=== PATIENT | male | born 1975 | race Caucasian/White ===

== ENCOUNTER 2017-07-17 19:17 | Inpatient (IN) | payer OTHER ==
[~2017-07-17] VITALS: Ht 177.8 cm; Wt 85.0 kg
[~2017-07-17 19:17] MED LIST: DEXAMETHASONE SOD PHOS 4 MG/ML VIAL IV ONE; GLYCOPYRROLATE 1 MG/5 ML SYRINGE IV PUSH ONE; LIDOCAINE HCL 1% PF 5 ML SYRINGE OTHER ONE; ONDANSETRON HCL 4 MG/2 ML VIAL IV ONE; PROPOFOL 200 MG/20 ML AMP IV ONE; ROCURONIUM INJ 50 MG/5 ML SYRINGE IV PUSH ONE; SUCCINYLCHOLINE CHLORIDE 200 MG/10 ML VIAL IV ONE; SULF1TAB47 PO; Z.0.NO CURRENT MEDS
[2017-07-17] MEDS ORDERED: MORPHINE SULFATE 4 MG/ML INJ ONE (19:22)
[2017-07-17] MEDS ORDERED: GENTAMICIN 80 MG PREMIX 100 ML ONE (19:38)
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
[2017-07-17 19:43] LABS: AUTOMATED NEUTROPHIL # 5.3 TH/MM3 (1.8-7.7); BASOPHIL # 0.1 TH/MM3 (0-0.2); BASOPHIL % 0.7 % (0.0-2.0); EOSINOPHIL # 0.1 TH/MM3 (0-0.4); EOSINOPHIL % 1.3 % (0.0-4.0); HEMATOCRIT 40.4 % (39.0-51.0); HEMOGLOBIN 14.2 GM/DL (13.0-17.0); LYMPH % 37.2 % (9.0-44.0); LYMPHOCYTE # 3.9 TH/MM3 (1.0-4.8); MEAN CELL VOLUME 89.1 FL (80.0-100.0); MEAN CORPUSCULAR HEMOGLOBIN 31.2 PG (27.0-34.0); MONO % 9.7 % (0.0-8.0); NEUT % 51.1 % (16.0-70.0); PLATELET COUNT 195 TH/MM3 (150-450); RED BLOOD COUNT 4.54 MIL/MM3 (4.50-5.90); RED CELL DISTRIBUTION WIDTH 14.1 % (11.6-17.2); WHITE BLOOD COUNT 10.4 TH/MM3 (4.0-11.0)
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
[2017-07-17] MEDS ORDERED: HYDROmorphone HCL PF 2 MG/ML VIAL ONE (19:57)
[2017-07-17 19:58] LABS: PROTHROMBIN TIME - PATIENT 10.4 SEC (9.8-11.6)
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
[2017-07-17] MEDS ORDERED: IOHEXOL 350 MG/ML 10 ML VIAL (for RAD DIAG) IVCONTRAST ONE (20:16)
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
[2017-07-17] MEDS ORDERED: GENTAMICIN SULFATE 80 MG/2 ML VIAL ONE (21:01)
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
[2017-07-17] MEDS: LACTATED RINGER'S 1000 ML INJ 1,000 ML IV SCH (22:00)
[2017-07-17] MEDS ORDERED: MORPHINE SULFATE 4 MG/ML INJ IV PUSH PRN (22:00)
[2017-07-17] MEDS ORDERED: Post-op Orders (for Pharmacy) XX ONE (22:00)
[2017-07-17] MEDS ORDERED: diphenhydrAMINE HCL 25 MG CAP PO PRN (22:00)
[2017-07-17] MEDS: KETOROLAC TROMETHAMINE 30 MG/ML (IVP) VIAL IVP SCH (22:00)
[2017-07-17 22:19] VITALS: O2SAT 100
[2017-07-17] MEDS ORDERED: *MEPERIDINE 25 MG INJ VIAL PERIprocedural Use ONLY ONE (22:23)
[2017-07-17] MEDS ORDERED: ACETAMINOPHEN 1000 MG/100 ML 100 ML IV ONE (22:23)
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
[2017-07-17] MEDS ORDERED: DO NOT ADM ANY ANTICOAGULANT DRUGS PRN (22:45)
[2017-07-17] MEDS ORDERED: MORPHINE SULFATE 2 MG/ML INJ ONE (22:51)
[2017-07-17] MEDS ORDERED: *morphine SULFATE 8 MG/ML PERIprocedure ONLY ONE ×2 (22:59→23:29)
[2017-07-17] MEDS: ceFAZolin 2 GM PREMIX 50 ML IV SCH (23:00)
[2017-07-17] MEDS: ACETAMINOPHEN/HYDROcodone 325 MG/10 MG TAB PO PRN (23:39)
[2017-07-18] VITALS (8 sets, daily range): BP systolic 116–126; BP diastolic 70–90; PULSE 60–89; RESP 17–18; TEMP 95.9–97.3; O2SAT 95–100
[2017-07-18] MEDS: VANCOMYCIN INJ 1,000 MG in SODIUM CHLOR 0.9% 250 ML INJ 250 ML IV SCH ×3 (00:30→23:40)
[2017-07-18] MEDS: ONDANSETRON HCL 4 MG/2 ML VIAL IVP PRN ×2 (02:01→06:44)
[2017-07-18] MEDS ORDERED: METOCLOPRAMIDE HCL 10 MG/2 ML VIAL IV PRN (05:15)
[2017-07-18] MEDS: ceFAZolin 2 GM PREMIX 50 ML IV SCH ×3 (06:44→21:44)
[2017-07-18] MEDS: KETOROLAC TROMETHAMINE 30 MG/ML (IVP) VIAL IVP SCH ×3 (06:44→21:44)
--- NOTE | 2017-07-18 07:23 | PD.ORT.PN ---
Subjective Subjective Remarks POD 1 s/p I&D with application of exfix right open distal tib fib fxs s/p right clavicle fx repots severe nausea. Objective Vitals Vital Signs Date Time Temp Pulse Resp B/P (MAP) Pulse Ox O2 Delivery O2 Flow Rate FiO2 07/18/17 05:05 96.8 60 17 116/70 (85) 95 07/18/17 00:15 96.3 89 18 117/90 (99) 97 07/17/17 23:45 50 15 122/78 (93) 99 Room Air 07/17/17 23:15 83 17 125/83 (97) 99 Room Air 07/17/17 23:00 98 15 128/78 (95) 99 Room Air 07/17/17 22:45 98 15 112/71 (85) 99 Room Air 07/17/17 22:30 97.9 100 15 131/76 (94) 99 Nasal Cannula 2 07/17/17 22:20 97.9 100 15 126/70 (88) 99 Nasal Cannula 2 07/17/17 22:19 100 2.00 I/O 07/17/17 07/17/17 07/17/17 07/18/17 07/18/17 07/18/17 07:00 15:00 23:00 07:00 15:00 23:00 Intake Total 1500 ml 480 ml Output Total 100 ml 425 ml Balance 1400 ml 55 ml Intake Oral 480 ml Other 1500 ml Output Urine Total 0 ml 425 ml Estimated Blood Loss 100 ml # Voids 0 # Bowel Movements 0 Result Diagram: 07/17/171919 Other Results Laboratory Tests Test 07/17/17 19:20 Prothromb Time International Ratio 1.0 RATIO Prothrombin Time 10.4 SEC (9.8-11.6) Imaging Last 24 hours Impressions Aorta w/Runoff CTA 07/17/171936 Signed Impressions: Service Date/Time: Monday, July 17, 2017 19:44 - CONCLUSION: 1. Posterior tibial artery appears to be occluded by a bone fragment. There is questionable trace flow in dorsalis pedis artery. Peroneal artery not well visualized. Exam is limited by poor contrast opacification in the distal lower extremities. Results therefore not definitive. Normal flow noted above the fracture on the right. Left side normal. Chaparro Cuba MD Thoracic Spine CT 2/12/18 1920 Signed Impressions: Service Date/Time: Monday, July 17, 2017 19:44 - CONCLUSION: 1. No acute findings identified within the thoracic spine. Chaparro Cuba MD Pelvis X-Ray 07/17/171919 Signed Impressions: Service Date/Time: Monday, July 17, 2017 19:18 - CONCLUSION: 1. No acute findings. Chaparro Cuba MD Lumbar Spine CT 07/17/171919 Signed Impressions: Service Date/Time: Monday, July 17, 2017 19:44 - CONCLUSION: 1. No acute fracture. Mild central canal stenosis at L4-5 with broad-based mild disc protrusion. No spondylolisthesis. Chaparro Cuab MD Head CT 07/17/171919 Signed Impressions: Service Date/Time: Monday, July 17, 2017 19:36 - CONCLUSION: 1. No acute intracranial abnormality. Fluid in the paranasal sinuses. Chaparro Cuba MD Chest CT 07/17/171919 Signed Impressions: Service Date/Time: Monday, July 17, 2017 19:44 - CONCLUSION: 1. Right clavicle fracture. Otherwise negative for intrathoracic traumatic injury. Chaparro Cuba MD Cervical Spine CT 07/17/171919 Signed Impressions: Service Date/Time: Monday, July 17, 2017 19:36 - CONCLUSION: 1. No acute findings. Chaparro Cuba MD Abdomen/Pelvis CT 07/17/171919 Signed Impressions: Service Date/Time: Monday, July 17, 2017 19:44 - CONCLUSION: 1. Negative for acute traumatic injury within the abdomen and pelvis. Chaparro Cuba MD Objective Remarks RLE: dressings around proximal pin sites are blood soaked. remaining dressings are clean and dry. intact. NVI. RUE: moderate pain overmidshaft clavicle. nvi Assessment & Plan Assessment and Plan 1) Right Midshaft clavicle fx - nonop -NWB -will monitor and treat nonop 2) Right distal Tibfib Fxs s/p I&D and exfix application - POD 1 -NWB -elevate -Toradol -pin care BID -npo after MN -will re-eval for surgery tomorrow AM Alan Sanderson/First Makayla MOYA Jul 18, 2017 07:23
[2017-07-18] MEDS ORDERED: SODIUM CHLORIDE 0.9% FLUSH 10 ML FLUSH IV FLUSH PRN (07:45)
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
[2017-07-18 08:21] LABS: HEMATOCRIT 38.7 % (39.0-51.0); HEMOGLOBIN 13.1 GM/DL (13.0-17.0)
[2017-07-18] MEDS: MAGNESIUM HYDROXIDE SUSP 30 ML CUP PO SCH ×2 (08:57→21:44)
[2017-07-18] MEDS: FAMOTIDINE 20 MG TAB PO SCH ×2 (08:57→21:43)
[2017-07-18] MEDS: LACTATED RINGER'S 1000 ML INJ 1,000 ML IV SCH ×2 (08:58→23:40)
[2017-07-18] MEDS: DOCUSATE SODIUM 50 MG/SENNA 8.6 MG TAB PO SCH ×2 (08:58→21:34)
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
[2017-07-18] MEDS: ACETAMINOPHEN 1000 MG/100 ML 100 ML IV SCH ×2 (15:03→22:27)
[2017-07-18] MEDS: ACETAMINOPHEN/HYDROcodone 325 MG/10 MG TAB PO PRN ×2 (17:38→21:44)
[2017-07-18] MEDS ORDERED: ENOXAPARIN SODIUM 40 MG/0.4 ML SYRINGE SQ SCH (21:00)
[2017-07-19] VITALS (9 sets, daily range): BP systolic 115–133; BP diastolic 65–77; PULSE 63–76; RESP 17–19; TEMP 96.2–97.8; O2SAT 97–99
[2017-07-19] MEDS: ACETAMINOPHEN/HYDROcodone 325 MG/10 MG TAB PO PRN ×4 (02:36→22:31)
[2017-07-19] MEDS: ONDANSETRON HCL 4 MG/2 ML VIAL IVP PRN (02:36)
[2017-07-19] MEDS ORDERED: CHLORHEXIDINE GLUCONATE 2 % 1 PACK (2 CLOTHS) TOPICAL PRN (02:45)
[2017-07-19] MEDS ORDERED: SODIUM CHLORID 0.9% 500 ML IV PRN (02:45)
[2017-07-19] MEDS ORDERED: POVIDONE IODINE 5% (ANTISEPSIS KIT) 4 APPLICATIONS EACH NARE PRN (02:45)
[2017-07-19] MEDS ORDERED: LACTATED RINGER'S 1000 ML IV PRN (02:45)
[2017-07-19] MEDS: ceFAZolin 2 GM PREMIX 50 ML IV SCH ×2 (05:47→16:02)
[2017-07-19] MEDS: KETOROLAC TROMETHAMINE 30 MG/ML (IVP) VIAL IVP SCH ×2 (05:47→13:12)
[2017-07-19] MEDS: ACETAMINOPHEN 1000 MG/100 ML 100 ML IV SCH (06:33)
--- NOTE | 2017-07-19 06:39 | PD.ORT.PN ---
Subjective Subjective Remarks POD 2 s/p I&D with application of exfix right open distal tib fib fxs s/p right clavicle fx repots that nausea is improving Objective Vitals Vital Signs Date Time Temp Pulse Resp B/P (MAP) Pulse Ox O2 Delivery O2 Flow Rate FiO2 07/19/17 04:35 97.2 76 17 117/67 (84) 98 07/19/17 00:50 96.9 76 17 126/67 (86) 98 07/18/17 20:25 96.8 73 17 126/79 (95) 100 07/18/17 17:46 99 21 07/18/17 16:00 96.6 73 17 120/75 (90) 99 07/18/17 15:33 17 07/18/17 14:13 16 07/18/17 12:00 97.3 74 17 124/72 (89) 99 07/18/17 08:39 96 21 07/18/17 08:00 95.9 73 17 117/73 (88) 100 I/O 07/18/17 07/18/17 07/18/17 07/19/17 07/19/17 07/19/17 07:00 15:00 23:00 07:00 15:00 23:00 Intake Total 480 ml 480 ml 480 ml Output Total 425 ml Balance 55 ml 480 ml 480 ml Intake Oral 480 ml 480 ml 480 ml Output Urine Total 425 ml # Voids 3 2 # Bowel Movements 0 0 0 Result Diagram: 07/18/17 0733 Imaging Last 24 hours Impressions Aorta w/Runoff CTA 07/17/171936 Signed Impressions: Service Date/Time: Monday, July 17, 2017 19:44 - CONCLUSION: 1. Posterior tibial artery appears to be occluded by a bone fragment. There is questionable trace flow in dorsalis pedis artery. Peroneal artery not well visualized. Exam is limited by poor contrast opacification in the distal lower extremities. Results therefore not definitive. Normal flow noted above the fracture on the right. Left side normal. Chaparro Cuba MD Thoracic Spine CT 07/17/171919 Signed Impressions: Service Date/Time: Monday, July 17, 2017 19:44 - CONCLUSION: 1. No acute findings identified within the thoracic spine. Chaparro Cuba MD Pelvis X-Ray 07/17/171919 Signed Impressions: Service Date/Time: Monday, July 17, 2017 19:18 - CONCLUSION: 1. No acute findings. Chaparro Cuba MD Lumbar Spine CT 07/17/171919 Signed Impressions: Service Date/Time: Monday, July 17, 2017 19:44 - CONCLUSION: 1. No acute fracture. Mild central canal stenosis at L4-5 with broad-based mild disc protrusion. No spondylolisthesis. Chaparro Cuba MD Head CT 07/17/171919 Signed Impressions: Service Date/Time: Monday, July 17, 2017 19:36 - CONCLUSION: 1. No acute intracranial abnormality. Fluid in the paranasal sinuses. Chaparro Cuba MD Chest CT 07/17/171919 Signed Impressions: Service Date/Time: Monday, July 17, 2017 19:44 - CONCLUSION: 1. Right clavicle fracture. Otherwise negative for intrathoracic traumatic injury. Chaparro Cuba MD Cervical Spine CT 07/17/171919 Signed Impressions: Service Date/Time: Monday, July 17, 2017 19:36 - CONCLUSION: 1. No acute findings. Chaparro Cuba MD Abdomen/Pelvis CT 07/17/171919 Signed Impressions: Service Date/Time: Monday, July 17, 2017 19:44 - CONCLUSION: 1. Negative for acute traumatic injury within the abdomen and pelvis. Chaparro Cuba MD Objective Remarks RLE: dressings around proximal pin sites are blood soaked. remaining dressings are clean and dry. intact. NVI. RUE: moderate pain overmidshaft clavicle. nvi Assessment & Plan Assessment and Plan 1) Right Midshaft clavicle fx - nonop -NWB -will monitor and treat nonop 2) Right distal Tibfib Fxs s/p I&D and exfix application - POD 2 -NWB -elevate -Toradol -pin care BID -resume diet -npo after MN -will re-eval for surgery again tomorrow AM Alan Sanderson/First Makayla MOYA Jul 19, 2017 06:39
[2017-07-19] MEDS ORDERED: BEDSIDE COMMODE1 MI1 (07:21)
[2017-07-19] MEDS ORDERED: WHEEMIS3 (07:21)
[2017-07-19 08:21] LABS: AUTOMATED NEUTROPHIL # 4.2 TH/MM3 (1.8-7.7); BASOPHIL # 0.1 TH/MM3 (0-0.2); BASOPHIL % 0.8 % (0.0-2.0); EOSINOPHIL % 0.5 % (0.0-4.0); HEMATOCRIT 34.7 % (39.0-51.0); HEMOGLOBIN 11.8 GM/DL (13.0-17.0); LYMPH % 34.3 % (9.0-44.0); LYMPHOCYTE # 2.8 TH/MM3 (1.0-4.8); MEAN CORPUSCULAR HGB CONC 34.1 % (32.0-36.0); MEAN PLATELET VOLUME 8.3 FL (7.0-11.0); MONO % 12.6 % (0.0-8.0); NEUT % 51.8 % (16.0-70.0); PLATELET COUNT 172 TH/MM3 (150-450); RED BLOOD COUNT 3.82 MIL/MM3 (4.50-5.90); RED CELL DISTRIBUTION WIDTH 13.9 % (11.6-17.2)
[2017-07-19 08:38] LABS: BICARBONATE 28.1 MEQ/L (21.0-32.0); CALCIUM 8.2 MG/DL (8.5-10.1); CREATININE 0.93 MG/DL (0.60-1.30)
[2017-07-19] MEDS: MAGNESIUM HYDROXIDE SUSP 30 ML CUP PO SCH ×2 (09:10→19:47)
[2017-07-19] MEDS: ENOXAPARIN SODIUM 30 MG/0.3 ML SYRINGE SQ SCH ×2 (09:10→19:50)
[2017-07-19] MEDS: DOCUSATE SODIUM 50 MG/SENNA 8.6 MG TAB PO SCH ×2 (09:10→20:49)
[2017-07-19] MEDS: FAMOTIDINE 20 MG TAB PO SCH ×2 (09:10→19:47)
[2017-07-19] MEDS: LACTATED RINGER'S 1000 ML INJ 1,000 ML IV SCH ×2 (11:30→20:49)
[2017-07-19] MEDS: fentaNYL 50 MCG/HR PATCH T-DERMAL SCH (13:09)
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
[2017-07-20] VITALS (7 sets, daily range): BP systolic 115–130; BP diastolic 68–84; PULSE 63–89; RESP 17–18; TEMP 96.3–98.9; O2SAT 95–98
[2017-07-20] MEDS: ACETAMINOPHEN/HYDROcodone 325 MG/10 MG TAB PO PRN ×3 (02:18→08:28)
[2017-07-20] MEDS: MAGNESIUM HYDROXIDE SUSP 30 ML CUP PO SCH ×2 (08:25→22:50)
[2017-07-20] MEDS: DOCUSATE SODIUM 50 MG/SENNA 8.6 MG TAB PO SCH ×2 (08:25→22:50)
[2017-07-20] MEDS: FAMOTIDINE 20 MG TAB PO SCH ×2 (08:25→22:50)
[2017-07-20] MEDS: GABAPENTIN 300 MG CAP PO SCH ×2 (13:07→18:11)
[2017-07-20] MEDS: ENOXAPARIN SODIUM 30 MG/0.3 ML SYRINGE SQ SCH (13:07)
[2017-07-20] MEDS: oxyCODONE/ACETAMINOPHEN 10 MG/325 MG TAB PO PRN (13:08)
[2017-07-20] MEDS: KETOROLAC TROMETHAMINE 30 MG/ML (IVP) VIAL IV PUSH SCH ×2 (13:14→18:11)
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
[2017-07-20] MEDS: ONDANSETRON HCL 4 MG/2 ML VIAL IVP PRN (18:11)
[2017-07-20] MEDS ORDERED: LACTULOSE SYRUP 20 GM/30 ML CUP PO ONE (18:45)
[2017-07-21] MEDS: ENOXAPARIN SODIUM 30 MG/0.3 ML SYRINGE SQ SCH ×3 (01:00→20:14)
[2017-07-21] MEDS: KETOROLAC TROMETHAMINE 30 MG/ML (IVP) VIAL IV PUSH SCH ×4 (01:03→16:38)
[2017-07-21 05:23] VITALS: BP 133/78; PULSE 85; RESP 18; TEMP 96.8; O2SAT 97
[2017-07-21] MEDS ORDERED: ENDO10TA8 PO (06:44)
[2017-07-21] MEDS ORDERED: XARE10TA PO (06:44)
--- NOTE | 2017-07-21 06:47 | PD.ORT.PN ---
Subjective Subjective Remarks POD 4 s/p I&D with application of exfix right open distal tib fib fxs s/p right clavicle fx no changes Objective Vitals Vital Signs Date Time Temp Pulse Resp B/P (MAP) Pulse Ox O2 Delivery O2 Flow Rate FiO2 07/21/17 05:23 96.8 85 18 133/78 (96) 97 07/20/17 23:09 98.9 89 18 125/84 (98) 96 07/20/17 20:05 97.1 80 18 117/68 (84) 95 07/20/17 16:11 96.7 70 17 117/70 (86) 95 07/20/17 12:00 96.8 63 18 115/70 (85) 96 07/20/17 08:10 98 21 07/20/17 08:00 96.3 65 17 126/81 (96) 96 I/O 07/20/17 07/20/17 07/20/17 07/21/17 07/21/17 07/21/17 07:00 15:00 23:00 07:00 15:00 23:00 Intake Total 360 ml 960 ml 360 ml 0 ml Output Total 850 ml 650 ml 1000 ml Balance -490 ml 310 ml 360 ml -1000 ml Intake Oral 360 ml 960 ml 360 ml 0 ml Output Urine Total 850 ml 650 ml 1000 ml # Voids 3 # Bowel Movements 0 0 0 0 Result Diagram: 07/19/17 0743 07/19/17 0743 Imaging Last 24 hours Impressions Aorta w/Runoff CTA 07/17/171936 Signed Impressions: Service Date/Time: Monday, July 17, 2017 19:44 - CONCLUSION: 1. Posterior tibial artery appears to be occluded by a bone fragment. There is questionable trace flow in dorsalis pedis artery. Peroneal artery not well visualized. Exam is limited by poor contrast opacification in the distal lower extremities. Results therefore not definitive. Normal flow noted above the fracture on the right. Left side normal. Chaparro Cuba MD Thoracic Spine CT 07/17/171919 Signed Impressions: Service Date/Time: Monday, July 17, 2017 19:44 - CONCLUSION: 1. No acute findings identified within the thoracic spine. Chaparro Cuba MD Pelvis X-Ray 07/17/171919 Signed Impressions: Service Date/Time: Monday, July 17, 2017 19:18 - CONCLUSION: 1. No acute findings. Chaparro Cuba MD Lumbar Spine CT 07/17/171919 Signed Impressions: Service Date/Time: Monday, July 17, 2017 19:44 - CONCLUSION: 1. No acute fracture. Mild central canal stenosis at L4-5 with broad-based mild disc protrusion. No spondylolisthesis. Chaparro Cuba MD Head CT 07/17/171919 Signed Impressions: Service Date/Time: Monday, July 17, 2017 19:36 - CONCLUSION: 1. No acute intracranial abnormality. Fluid in the paranasal sinuses. Chaparro Cuba MD Chest CT 07/17/171919 Signed Impressions: Service Date/Time: Monday, July 17, 2017 19:44 - CONCLUSION: 1. Right clavicle fracture. Otherwise negative for intrathoracic traumatic injury. Chaparro Cuba MD Cervical Spine CT 07/17/171919 Signed Impressions: Service Date/Time: Monday, July 17, 2017 19:36 - CONCLUSION: 1. No acute findings. Chaparro Cuba MD Abdomen/Pelvis CT 07/17/171919 Signed Impressions: Service Date/Time: Monday, July 17, 2017 19:44 - CONCLUSION: 1. Negative for acute traumatic injury within the abdomen and pelvis. Chaparro Cuba MD Objective Remarks RLE: dressings around proximal pin sites are blood soaked. remaining dressings are clean and dry. intact. NVI. 2-3+swelling of ankle RUE: moderate pain overmidshaft clavicle. nvi Assessment & Plan Assessment and Plan 1) Right Midshaft clavicle fx - nonop -NWB -will monitor and treat nonop 2) Right distal Tibfib Fxs s/p I&D and exfix application - POD 4 -NWB -elevate -Toradol -pin care BID -at this point, swelling too great for surgery. will be at least 1-2 weeks before surgery possibile due to swelling. if patient is able, ok for DC home and follow up in office. had lengthy discussion with patient regarding this plan adn the importance of keeping his foot elevated and refraining from smoking. patient is unsure if he will have suitable arrangements to accommodate this. If unable to make arrangements, ok to stay in hospital. but if arrangements made, cleared for DC home and follow up next week in office Alan Sanderson PA/Senior Information Systems Architect PA Jul 21, 2017 06:47
[2017-07-21] MEDS ORDERED: MAGNESIUM CITRATE SOLN 300 ML BTL PO ONE (07:00)
[2017-07-21 07:47] LABS: AUTOMATED NEUTROPHIL # 8.1 TH/MM3 (1.8-7.7); BASOPHIL % 0.3 % (0.0-2.0); EOSINOPHIL # 0.1 TH/MM3 (0-0.4); EOSINOPHIL % 0.7 % (0.0-4.0); HEMATOCRIT 37.5 % (39.0-51.0); HEMOGLOBIN 13.1 GM/DL (13.0-17.0); LYMPH % 10.6 % (9.0-44.0); LYMPHOCYTE # 1.1 TH/MM3 (1.0-4.8); MEAN CORPUSCULAR HEMOGLOBIN 31.5 PG (27.0-34.0); MEAN PLATELET VOLUME 8.3 FL (7.0-11.0); MONO % 11.7 % (0.0-8.0); MONOCYTE # 1.2 TH/MM3 (0-0.9); NEUT % 76.7 % (16.0-70.0); PLATELET COUNT 209 TH/MM3 (150-450); RED BLOOD COUNT 4.17 MIL/MM3 (4.50-5.90); RED CELL DISTRIBUTION WIDTH 13.7 % (11.6-17.2); WHITE BLOOD COUNT 10.6 TH/MM3 (4.0-11.0)
[2017-07-21 08:00] VITALS: BP 117/69; PULSE 61; RESP 16; TEMP 97.4; O2SAT 100
[2017-07-21 08:02] LABS: BICARBONATE 30.1 MEQ/L (21.0-32.0); CALCIUM 8.5 MG/DL (8.5-10.1); CREATININE 1.26 MG/DL (0.60-1.30)
[2017-07-21] MEDS: DOCUSATE SODIUM 50 MG/SENNA 8.6 MG TAB PO SCH ×2 (08:43→20:14)
[2017-07-21] MEDS: MAGNESIUM HYDROXIDE SUSP 30 ML CUP PO SCH ×2 (08:43→20:17)
[2017-07-21] MEDS: GABAPENTIN 300 MG CAP PO SCH ×3 (08:43→16:38)
[2017-07-21] MEDS: FAMOTIDINE 20 MG TAB PO SCH ×2 (08:43→20:14)
[2017-07-21] MEDS: oxyCODONE/ACETAMINOPHEN 10 MG/325 MG TAB PO PRN (08:45)
[2017-07-21 12:00] VITALS: BP 122/70; PULSE 70; RESP 18; TEMP 96.6; O2SAT 99
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
[2017-07-21 16:07] VITALS: BP 134/82; PULSE 68; RESP 17; TEMP 97.3; O2SAT 97
[2017-07-21 20:00] VITALS: BP 144/84; PULSE 74; RESP 20; TEMP 98.1; O2SAT 97
[2017-07-22] MEDS: KETOROLAC TROMETHAMINE 30 MG/ML (IVP) VIAL IV PUSH SCH ×4 (00:09→23:59)
[2017-07-22] MEDS: oxyCODONE/ACETAMINOPHEN 10 MG/325 MG TAB PO PRN ×2 (05:22→08:50)
[2017-07-22 07:30] VITALS: BP 132/80; PULSE 65; RESP 18; TEMP 96.9; O2SAT 99
[2017-07-22] MEDS ORDERED: BISACODYL EC 5 MG TABEC PO ONE (08:00)
[2017-07-22] MEDS ORDERED: BISACODYL 10 MG SUPP RECTAL ONE (08:00)
[2017-07-22] MEDS: MAGNESIUM HYDROXIDE SUSP 30 ML CUP PO SCH ×2 (08:43→21:00)
[2017-07-22] MEDS: ENOXAPARIN SODIUM 30 MG/0.3 ML SYRINGE SQ SCH ×2 (08:44→21:33)
[2017-07-22] MEDS: GABAPENTIN 300 MG CAP PO SCH ×3 (08:49→19:10)
[2017-07-22] MEDS: FAMOTIDINE 20 MG TAB PO SCH ×2 (08:49→21:32)
[2017-07-22] MEDS: DOCUSATE SODIUM 50 MG/SENNA 8.6 MG TAB PO SCH ×2 (08:49→21:00)
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
[2017-07-22 11:41] VITALS: BP 129/78; PULSE 67; RESP 18; TEMP 95.9; O2SAT 99
[2017-07-22] MEDS: REMOVE OLD DURAGESIC (FENTANYL) PATCH T-DERMAL SCH (12:52)
[2017-07-22] MEDS: fentaNYL 50 MCG/HR PATCH T-DERMAL SCH (12:52)
[2017-07-22 13:17] VITALS: O2SAT 99
[2017-07-22 15:55] VITALS: BP 153/82; PULSE 65; RESP 18; TEMP 96.5; O2SAT 97
[2017-07-22 20:14] VITALS: BP 140/79; PULSE 73; RESP 16; TEMP 97.1; O2SAT 96
[2017-07-22 23:56] VITALS: BP 139/73; PULSE 69; RESP 17; TEMP 96.8; O2SAT 100
[2017-07-23] MEDS: KETOROLAC TROMETHAMINE 30 MG/ML (IVP) VIAL IV PUSH SCH ×2 (05:01→12:16)
[2017-07-23 08:00] VITALS: BP 151/80; PULSE 78; RESP 18; TEMP 96; O2SAT 98
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
[2017-07-23] MEDS: GABAPENTIN 300 MG CAP PO SCH ×3 (09:40→17:38)
[2017-07-23] MEDS: FAMOTIDINE 20 MG TAB PO SCH ×2 (09:40→20:43)
[2017-07-23] MEDS: DOCUSATE SODIUM 50 MG/SENNA 8.6 MG TAB PO SCH ×2 (09:40→20:56)
[2017-07-23] MEDS: MAGNESIUM HYDROXIDE SUSP 30 ML CUP PO SCH ×2 (09:41→20:56)
[2017-07-23] MEDS: ENOXAPARIN SODIUM 30 MG/0.3 ML SYRINGE SQ SCH ×2 (09:43→20:43)
[2017-07-23] MEDS: oxyCODONE/ACETAMINOPHEN 10 MG/325 MG TAB PO PRN ×3 (09:44→20:47)
[2017-07-23 12:00] VITALS: BP 138/81; PULSE 98; RESP 18; TEMP 96.3; O2SAT 98
[2017-07-23] MEDS: ONDANSETRON HCL 4 MG/2 ML VIAL IVP PRN ×2 (12:31→20:47)
[2017-07-23 16:00] VITALS: BP 127/82; PULSE 88; RESP 18; TEMP 97.3; O2SAT 98
[2017-07-23 17:49] VITALS: O2SAT 98
[2017-07-23 20:32] VITALS: BP 137/74; PULSE 91; RESP 17; TEMP 96.8; O2SAT 100
[2017-07-24] MEDS: oxyCODONE/ACETAMINOPHEN 10 MG/325 MG TAB PO PRN ×5 (03:14→20:35)
--- NOTE | 2017-07-24 06:29 | PD.ORT.PN ---
Subjective Subjective Remarks Pain controlled. Anxious to progress with surgery. Elevating his foot in bed Objective Vitals Vital Signs Date Time Temp Pulse Resp B/P (MAP) Pulse Ox O2 Delivery O2 Flow Rate FiO2 07/23/17 20:32 96.8 91 17 137/74 (95) 100 07/23/17 17:49 98 21 07/23/17 16:00 97.3 88 18 127/82 (97) 98 07/23/17 12:00 96.3 98 18 138/81 (100) 98 07/23/17 08:00 96.0 78 18 151/80 (103) 98 I/O 07/23/17 07/23/17 07/23/17 07/24/17 07/24/17 07/24/17 07:00 15:00 23:00 07:00 15:00 23:00 Intake Total 480 ml 720 ml 480 ml Output Total 600 ml Balance 480 ml 120 ml 480 ml Intake Oral 480 ml 720 ml 480 ml Output Urine Total 600 ml # Voids 2 2 # Bowel Movements 1 0 0 Result Diagram: 07/21/17 0648 07/21/17 0648 Imaging Last 24 hours Impressions Aorta w/Runoff CTA 07/17/171936 Signed Impressions: Service Date/Time: Monday, July 17, 2017 19:44 - CONCLUSION: 1. Posterior tibial artery appears to be occluded by a bone fragment. There is questionable trace flow in dorsalis pedis artery. Peroneal artery not well visualized. Exam is limited by poor contrast opacification in the distal lower extremities. Results therefore not definitive. Normal flow noted above the fracture on the right. Left side normal. Chaparro Cuba MD Thoracic Spine CT 07/17/171919 Signed Impressions: Service Date/Time: Monday, July 17, 2017 19:44 - CONCLUSION: 1. No acute findings identified within the thoracic spine. Chaparro Cuba MD Pelvis X-Ray 07/17/171919 Signed Impressions: Service Date/Time: Monday, July 17, 2017 19:18 - CONCLUSION: 1. No acute findings. Chaparro Cuba MD Lumbar Spine CT 07/17/171919 Signed Impressions: Service Date/Time: Monday, July 17, 2017 19:44 - CONCLUSION: 1. No acute fracture. Mild central canal stenosis at L4-5 with broad-based mild disc protrusion. No spondylolisthesis. Chaparro Cuba MD Head CT 07/17/171919 Signed Impressions: Service Date/Time: Monday, July 17, 2017 19:36 - CONCLUSION: 1. No acute intracranial abnormality. Fluid in the paranasal sinuses. Chaparro Cuba MD Chest CT 07/17/171919 Signed Impressions: Service Date/Time: Monday, July 17, 2017 19:44 - CONCLUSION: 1. Right clavicle fracture. Otherwise negative for intrathoracic traumatic injury. Chaparro Cuba MD Cervical Spine CT 07/17/171919 Signed Impressions: Service Date/Time: Monday, July 17, 2017 19:36 - CONCLUSION: 1. No acute findings. Chaparro Cuba MD Abdomen/Pelvis CT 07/17/171919 Signed Impressions: Service Date/Time: Monday, July 17, 2017 19:44 - CONCLUSION: 1. Negative for acute traumatic injury within the abdomen and pelvis. Chaparro Cuba MD Objective Remarks RLE: dressings around proximal pin sites mild drainage. remaining dressings are clean and dry. intact. NVI. 3+swelling of ankle RUE: moderate pain overmidshaft clavicle. nvi Assessment & Plan Assessment and Plan 1) Right Midshaft clavicle fx - nonop -NWB -will monitor and treat nonop 2) Right distal Tibfib Fxs s/p I&D and exfix application - POD 5 -NWB -elevate -Toradol -pin care BID -at this point, swelling too great for surgery. will be at least 1 week before surgery possible due to swelling. Fabricio Billings Jr. Jul 24, 2017 06:29
[2017-07-24 08:00] VITALS: BP 139/74; PULSE 88; RESP 17; TEMP 96.7; O2SAT 100
[2017-07-24] MEDS: MAGNESIUM HYDROXIDE SUSP 30 ML CUP PO SCH ×2 (08:29→20:36)
[2017-07-24] MEDS: GABAPENTIN 300 MG CAP PO SCH ×3 (08:30→17:40)
[2017-07-24] MEDS: ENOXAPARIN SODIUM 30 MG/0.3 ML SYRINGE SQ SCH ×2 (08:30→20:36)
[2017-07-24] MEDS: FAMOTIDINE 20 MG TAB PO SCH ×2 (08:30→20:35)
[2017-07-24] MEDS: DOCUSATE SODIUM 50 MG/SENNA 8.6 MG TAB PO SCH ×2 (08:31→20:36)
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
[2017-07-24 12:00] VITALS: BP 115/69; PULSE 85; RESP 16; TEMP 96.9; O2SAT 99
[2017-07-24] MEDS: ONDANSETRON HCL 4 MG/2 ML VIAL IVP PRN (12:34)
[2017-07-24 16:00] VITALS: BP 179/79; PULSE 86; RESP 16; TEMP 96.3; O2SAT 100
[2017-07-24] MEDS: CYCLOBENZAPRINE HCL 10 MG TAB PO PRN (20:35)
[2017-07-24 20:45] VITALS: BP 118/76; PULSE 93; RESP 18; TEMP 96.7; O2SAT 100
[2017-07-25] VITALS: BP 120/78; PULSE 86; RESP 17; TEMP 96.6; O2SAT 99
[2017-07-25] MEDS: oxyCODONE/ACETAMINOPHEN 10 MG/325 MG TAB PO PRN ×5 (01:31→20:12)
[2017-07-25] MEDS: ONDANSETRON HCL 4 MG/2 ML VIAL IVP PRN ×2 (01:31→18:02)
--- NOTE | 2017-07-25 06:30 | PD.ORT.PN ---
Subjective Subjective Remarks Pain controlled. Anxious to progress with surgery. Elevating his foot in bed Objective Vitals Vital Signs Date Time Temp Pulse Resp B/P (MAP) Pulse Ox O2 Delivery O2 Flow Rate FiO2 07/25/17 00:00 96.6 86 17 120/78 (92) 99 07/24/17 20:45 96.7 93 18 118/76 (90) 100 07/24/17 16:00 96.3 86 16 179/79 (112) 100 07/24/17 12:00 96.9 85 16 115/69 (84) 99 07/24/17 08:00 96.7 88 17 139/74 (95) 100 I/O 07/24/17 07/24/17 07/24/17 07/25/17 07/25/17 07/25/17 07:00 15:00 23:00 07:00 15:00 23:00 Intake Total 0 ml 1200 ml 1500 ml Output Total 500 ml 1375 ml Balance 0 ml 700 ml 125 ml Intake Oral 0 ml 1200 ml 1500 ml Output Urine Total 500 ml 1375 ml # Voids 2 3 # Bowel Movements 0 0 0 Result Diagram: 07/21/17 0648 07/21/17 0648 Imaging Last 24 hours Impressions Aorta w/Runoff CTA 07/17/171936 Signed Impressions: Service Date/Time: Monday, July 17, 2017 19:44 - CONCLUSION: 1. Posterior tibial artery appears to be occluded by a bone fragment. There is questionable trace flow in dorsalis pedis artery. Peroneal artery not well visualized. Exam is limited by poor contrast opacification in the distal lower extremities. Results therefore not definitive. Normal flow noted above the fracture on the right. Left side normal. Chaparro Cuba MD Thoracic Spine CT 07/17/171919 Signed Impressions: Service Date/Time: Monday, July 17, 2017 19:44 - CONCLUSION: 1. No acute findings identified within the thoracic spine. Chaparro Cuba MD Pelvis X-Ray 07/17/171919 Signed Impressions: Service Date/Time: Monday, July 17, 2017 19:18 - CONCLUSION: 1. No acute findings. Chaparro Cuba MD Lumbar Spine CT 07/17/171919 Signed Impressions: Service Date/Time: Monday, July 17, 2017 19:44 - CONCLUSION: 1. No acute fracture. Mild central canal stenosis at L4-5 with broad-based mild disc protrusion. No spondylolisthesis. Chaparro Cuba MD Head CT 07/17/171919 Signed Impressions: Service Date/Time: Monday, July 17, 2017 19:36 - CONCLUSION: 1. No acute intracranial abnormality. Fluid in the paranasal sinuses. Chaparro Cuba MD Chest CT 07/17/171919 Signed Impressions: Service Date/Time: Monday, July 17, 2017 19:44 - CONCLUSION: 1. Right clavicle fracture. Otherwise negative for intrathoracic traumatic injury. Chaparro Cuba MD Cervical Spine CT 07/17/171919 Signed Impressions: Service Date/Time: Monday, July 17, 2017 19:36 - CONCLUSION: 1. No acute findings. Chaparro Cuba MD Abdomen/Pelvis CT 07/17/171919 Signed Impressions: Service Date/Time: Monday, July 17, 2017 19:44 - CONCLUSION: 1. Negative for acute traumatic injury within the abdomen and pelvis. Chaparro Cuba MD Objective Remarks RLE: dressings around proximal pin sites mild drainage. remaining dressings are clean and dry. intact. NVI. 3+swelling of ankle RUE: moderate pain overmidshaft clavicle. nvi Assessment & Plan Assessment and Plan 1) Right Midshaft clavicle fx - nonop -NWB -will monitor and treat nonop 2) Right distal Tibfib Fxs s/p I&D and exfix application - POD 5 -NWB -elevate -Toradol -pin care BID -at this point, swelling too great for surgery. will be at least 1 week before surgery possible due to swelling. The patient understands the gravity of waiting for surgery. He understands there is no other option. Unfortunately he is still not happy with the options Fabricio Billings Jr. Jul 25, 2017 06:30
[2017-07-25 07:26] VITALS: BP 118/72; PULSE 88; RESP 18; TEMP 97; O2SAT 100
[2017-07-25] MEDS: GABAPENTIN 300 MG CAP PO SCH ×3 (07:52→17:34)
[2017-07-25] MEDS: CYCLOBENZAPRINE HCL 10 MG TAB PO PRN ×2 (07:52→15:38)
[2017-07-25] MEDS: DOCUSATE SODIUM 50 MG/SENNA 8.6 MG TAB PO SCH ×2 (07:53→20:15)
[2017-07-25] MEDS: ENOXAPARIN SODIUM 30 MG/0.3 ML SYRINGE SQ SCH ×2 (07:53→20:15)
[2017-07-25] MEDS: FAMOTIDINE 20 MG TAB PO SCH ×2 (07:53→20:11)
[2017-07-25] MEDS: MAGNESIUM HYDROXIDE SUSP 30 ML CUP PO SCH ×2 (07:53→20:15)
[2017-07-25 09:50] VITALS: O2SAT 100
[2017-07-25 11:06] VITALS: BP 120/75; PULSE 82; RESP 18; TEMP 96.5; O2SAT 100
[2017-07-25] MEDS: REMOVE OLD DURAGESIC (FENTANYL) PATCH T-DERMAL SCH (13:00)
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
[2017-07-25] MEDS: IBUPROFEN 800 MG TAB PO SCH ×2 (14:19→22:22)
[2017-07-25] MEDS: fentaNYL 50 MCG/HR PATCH T-DERMAL SCH (14:21)
[2017-07-25 16:00] VITALS: BP 128/83; PULSE 80; RESP 18; TEMP 97; O2SAT 99
[2017-07-25] MEDS ORDERED: PERI PO (19:18)
[2017-07-25] MEDS ORDERED: MAGN30S PO (19:18)
[2017-07-26 00:40] VITALS: BP 124/73; PULSE 90; RESP 17; TEMP 97.7; O2SAT 98
[2017-07-26] MEDS: oxyCODONE/ACETAMINOPHEN 10 MG/325 MG TAB PO PRN ×4 (02:55→16:46)
[2017-07-26] MEDS: IBUPROFEN 800 MG TAB PO SCH ×2 (06:20→13:50)
[2017-07-26 08:00] VITALS: BP 128/80; PULSE 91; RESP 18; TEMP 96.6; O2SAT 100
[2017-07-26] MEDS: GABAPENTIN 300 MG CAP PO SCH ×3 (09:00→13:49)
[2017-07-26] MEDS: FAMOTIDINE 20 MG TAB PO SCH (09:00)
[2017-07-26] MEDS: MAGNESIUM HYDROXIDE SUSP 30 ML CUP PO SCH (09:00)
[2017-07-26] MEDS: DOCUSATE SODIUM 50 MG/SENNA 8.6 MG TAB PO SCH (09:00)
[2017-07-26] MEDS: ENOXAPARIN SODIUM 30 MG/0.3 ML SYRINGE SQ SCH (09:01)
[2017-07-26] MEDS: CYCLOBENZAPRINE HCL 10 MG TAB PO PRN ×2 (09:02→16:46)
[2017-07-26 09:43] VITALS: O2SAT 100
[2017-07-26 12:00] VITALS: BP 114/70; PULSE 85; RESP 18; TEMP 96.7; O2SAT 100
--- NOTE | 2017-07-26 12:54 | HHI.FF ---
Face to Face Verification Diagnosis: (1) Right clavicle fracture (2) Open fracture of tibia and fibula Home Health Nursing Order: Wound care and dressing changes Nursing assessment with vital signs Instructions: Cleanse pin sites on RLE with Q-tip of half saline and half peroxide mixture twice per day. Educate patient and family I have seen patient Je Alegria on 07/26/17. My clinical findings support the need for the requested home health care services because: Limited ability to care for self I certify that my clinical findings support that this patient is homebound because: Post-op weakness Jasmyne Sims Jul 26, 2017 12:53
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
== END 2017-07-26 17:17 | disposition home health service (06) | DRG 492 ==
LOC: NEPI 19:17 → NEDA 20:33 → MERGE 20:33 → EDBD 20:33 → N06A 07-18 00:05
PROVIDERS: ADMIT Surgery; ATTEND Surgery
PROC: 0QSJXZZ Reposition Right Fibula, External Approach (ICD-10-PCS; 2017-07-17)
PROC: 0QSG35Z Reposition Right Tibia with External Fixation Device, Percutaneous Approach (ICD-10-PCS; principal; 2017-07-17 20:59)
DX: S82.391B Other fracture of lower end of right tibia, initial encounter for open fracture type I or II (principal); S82.831B Other fracture of upper and lower end of right fibula, initial encounter for open fracture type I or II; I95.9 Hypotension, unspecified; V29.49XA Motorcycle driver injured in collision with other motor vehicles in traffic accident, initial encounter; Y92.488 Other paved roadways as the place of occurrence of the external cause; Y93.89 Activity, other specified; S42.021A Displaced fracture of shaft of right clavicle, initial encounter for closed fracture; Z59.0 Homelessness
CPT/HCPCS: 70450; 71045; 71260; 72125; 72129; 72132; 72170; 73020; 73590; 73600; 74177; 75635; 76000; 80048; 85014; 85018; 85025; 85610; 85730; 86850; 86900; 86901; 90471; 94150; 96374; 96375; 99291; C1713; G0390; J0131; J0330; J0690; J1100; J1170; J1580; J1650; J1885; J2175; J2270; J2405; J3010; J3370; J7050; J7120; Q9967

== ENCOUNTER 2017-08-09 06:12 | Inpatient (IN) | payer OTHER ==
[~2017-08-09] VITALS: Ht 203.2 cm; Wt 95.6 kg
[~2017-08-09 06:12] MED LIST changes: +BEDSIDE COMMODE1 MI1; -DEXAMETHASONE SOD PHOS 4 MG/ML VIAL IV ONE; +ENDO10TA8 PO; -GLYCOPYRROLATE 1 MG/5 ML SYRINGE IV PUSH ONE; -LIDOCAINE HCL 1% PF 5 ML SYRINGE OTHER ONE; +MAGN30S PO; -ONDANSETRON HCL 4 MG/2 ML VIAL IV ONE; +PERI PO; -PROPOFOL 200 MG/20 ML AMP IV ONE; -ROCURONIUM INJ 50 MG/5 ML SYRINGE IV PUSH ONE; -SUCCINYLCHOLINE CHLORIDE 200 MG/10 ML VIAL IV ONE; -SULF1TAB47 PO; +WHEEMIS3; +XARE10TA PO; -Z.0.NO CURRENT MEDS
[2017-08-09] MEDS ORDERED: ceFAZolin 2 GM PREMIX 50 ML IV SCH (06:45)
[2017-08-09] MEDS ORDERED: SODIUM CHLORID 0.9% 500 ML IV PRN (06:45)
[2017-08-09] MEDS ORDERED: VANCOMYCIN 1000 MG/NS 250 ML (for <70 kg) IV SCH ×2 (06:45)
[2017-08-09] MEDS ORDERED: POVIDONE IODINE 5% (ANTISEPSIS KIT) 4 APPLICATIONS EACH NARE PRN (06:45)
[2017-08-09] MEDS ORDERED: CHLORHEXIDINE GLUCONATE 4% SOLN 120 ML BTL TOPICAL SCH (06:45)
[2017-08-09] MEDS ORDERED: LACTATED RINGER'S 1000 ML IV PRN (06:45)
[2017-08-09] MEDS ORDERED: METOPROLOL TARTRATE 25 MG TAB PO PRN (06:45)
[2017-08-09] MEDS ORDERED: APREPITANT 40 MG CAP ONE (06:49)
[2017-08-09] MEDS: CHLORHEXIDINE GLUCONATE 2 % 1 PACK (2 CLOTHS) TOPICAL PRN (07:15)
[2017-08-09] MEDS ORDERED: GENTAMICIN SULFATE 80 MG/2 ML VIAL ONE (08:21)
[2017-08-09] MEDS ORDERED: TRANEXAMIC ACID INJ 0 MG in SODIUM CHLORIDE 0.9% INJ 100 ML IV ONE (10:30)
[2017-08-09] MEDS ORDERED: SODIUM CHLORIDE 0.9% IV SCH (10:45)
[2017-08-09] MEDS ORDERED: BACITRACIN TOP OINT 15 GM TUBE ONE (10:45)
[2017-08-09] MEDS ORDERED: TRANEXAMIC ACID IV SCH (10:45)
[2017-08-09] MEDS ORDERED: Post-op Orders (for Pharmacy) XX ONE (11:30)
[2017-08-09] MEDS ORDERED: diphenhydrAMINE HCL 25 MG CAP PO PRN (11:30)
[2017-08-09] MEDS ORDERED: NALOXONE HCL 0.4 MG/ML AMP IV PUSH PRN ×2 (11:30→13:30)
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
[2017-08-09] MEDS ORDERED: LIDOCAINE HCL 1% PF 5 ML SYRINGE OTHER ONE ×2 (12:00)
[2017-08-09] MEDS ORDERED: ROCURONIUM INJ 50 MG/5 ML SYRINGE IV PUSH ONE ×2 (12:00)
[2017-08-09] MEDS ORDERED: ceFAZolin INJ 1,000 MG VIAL IV ONE (12:00)
[2017-08-09] MEDS ORDERED: DEXAMETHASONE SOD PHOS 4 MG/ML VIAL IV ONE (12:00)
[2017-08-09] MEDS ORDERED: GLYCOPYRROLATE 1 MG/5 ML SYRINGE IV PUSH ONE (12:00)
[2017-08-09] MEDS ORDERED: LACTATED RINGER'S 1000 ML INJ 2,000 ML IV ONE (12:00)
[2017-08-09] MEDS ORDERED: PROPOFOL 200 MG/20 ML AMP IV ONE (12:00)
[2017-08-09] MEDS ORDERED: NEOSTIGMINE 5 MG/5 ML SYRINGE IV PUSH ONE (12:00)
[2017-08-09] MEDS ORDERED: ONDANSETRON HCL 4 MG/2 ML VIAL IV ONE (12:00)
[2017-08-09] MEDS: LACTATED RINGER'S 1000 ML INJ 1,000 ML IV SCH ×2 (12:00→22:38)
[2017-08-09] MEDS ORDERED: MIDAZOLAM HCL 2 MG/2 ML VIAL ONE (12:39)
[2017-08-09] MEDS ORDERED: *hydrOXYzine 25 MG VIAL PERIprocedural Use ONLY IM ONE (12:54)
[2017-08-09] MEDS: KETOROLAC TROMETHAMINE 30 MG/ML (IVP) VIAL IVP SCH ×2 (12:57→18:09)
--- NOTE | 2017-08-09 12:57 | RADRPT ---
EXAM DATE/TIME: 08/09/2017 09:59 [facility] COMPARISON: No previous studies available for comparison. INDICATIONS : Right clavicle open reduction internal fixation. MEDICAL HISTORY : Non-responsive. SURGICAL HISTORY : Non-responsive. ENCOUNTER: Initial ACUITY: 1 day PAIN SCORE: Non-responsive. LOCATION: Right clavicle CONCLUSION: Fluoroscopic images during placement of plate and screws along the right clavicle fixating fracture. Julius Ryder MD on August 09, 2017 at 12:55 Board Certified Radiologist. This report was verified electronically.
[2017-08-09] MEDS: HYDROmorphone HCL PF 2 MG/ML VIAL IV PUSH PRN (12:58)
--- NOTE | 2017-08-09 12:58 | RADRPT ---
EXAM DATE/TIME: 08/09/2017 09:59 [facility] COMPARISON: TIBIA/FIBULA RIGHT (AP/LAT), July 17, 2017, 19:18. INDICATIONS : Right tibia/fibula open reduction internal fixation. MEDICAL HISTORY : Unobtainable. SURGICAL HISTORY : Unobtainable. ENCOUNTER: Subsequent ACUITY: 1 day PAIN SCORE: Non-responsive. LOCATION: Right tibia/fibula CONCLUSION: Fluoroscopic images during placement of plate and screws along the distal tibia and fibula fixating f ractures Julius Ryder MD on August 09, 2017 at 12:55 Board Certified Radiologist. This report was verified electronically.
[2017-08-09] MEDS: CALCIUM/VITAMIN D 250 MG/125 U TAB PO SCH ×2 (13:00→18:09)
[2017-08-09] MEDS ORDERED: HYDROmorphone HCL PCA 6 MG/30 ML IV ONE (13:02)
[2017-08-09] MEDS: HYDROmorphone HCL PCA 6 MG/30 ML IV SCH ×2 (13:22→20:45)
[2017-08-09] MEDS ORDERED: DO NOT ADM ANY ANTICOAGULANT DRUGS PRN (13:30)
[2017-08-09] MEDS ORDERED: ROPIVACAINE 1% PF INJ 20 ML AMP ONE (13:32)
[2017-08-09 16:00] VITALS: BP 118/70; PULSE 86; RESP 18; TEMP 95.9; O2SAT 98
[2017-08-09] MEDS: ceFAZolin 2 GM PREMIX 50 ML IV SCH (18:08)
[2017-08-09] MEDS: ONDANSETRON HCL 4 MG/2 ML VIAL IVP PRN (18:09)
[2017-08-09 20:37] VITALS: BP 112/64; PULSE 73; RESP 19; TEMP 96.7; O2SAT 96
[2017-08-09] MEDS: PCA - TOTAL MG DILAUDID DELIVERED PER SHIFT SCH (22:00)
[2017-08-09] MEDS: VANCOMYCIN INJ 1,000 MG in SODIUM CHLOR 0.9% 250 ML INJ 250 ML IV SCH (22:38)
[2017-08-10] VITALS (7 sets, daily range): BP systolic 99–129; BP diastolic 53–70; PULSE 63–90; RESP 18–20; TEMP 96.2–97.1; O2SAT 94–100
[2017-08-10] MEDS: KETOROLAC TROMETHAMINE 30 MG/ML (IVP) VIAL IVP SCH ×2 (00:41→07:42)
[2017-08-10] MEDS: ACETAMINOPHEN/HYDROcodone 325 MG/10 MG TAB PO PRN ×7 (00:41→23:30)
[2017-08-10] MEDS: CHLORHEXIDINE GLUCONATE 2 % 1 PACK (2 CLOTHS) TOPICAL PRN (00:42)
[2017-08-10] MEDS: ceFAZolin 2 GM PREMIX 50 ML IV SCH ×3 (01:57→17:45)
[2017-08-10] MEDS: HYDROmorphone HCL PCA 6 MG/30 ML IV SCH (02:02)
--- NOTE | 2017-08-10 07:52 | PD.ORT.PN ---
Subjective Subjective Remarks Pain controlled. Block to right tibia postoperatively Objective Vitals Vital Signs Date Time Temp Pulse Resp B/P (MAP) Pulse Ox O2 Delivery O2 Flow Rate FiO2 08/10/17 07:30 96.7 73 18 99/53 (68) 95 08/10/17 04:00 97.0 73 20 107/55 (72) 97 08/10/17 02:02 16 08/10/17 00:00 97.1 75 18 108/55 (72) 94 08/09/17 22:00 18 08/09/17 20:45 17 08/09/17 20:37 96.7 73 19 112/64 (80) 96 08/09/17 16:00 95.9 86 18 118/70 (86) 98 08/09/17 15:59 88 16 124/81 (95) 100 Nasal Cannula 2 08/09/17 13:22 16 08/09/17 13:00 74 16 120/80 (93) 100 Nasal Cannula 2 08/09/17 12:45 61 16 108/67 (81) 98 Nasal Cannula 2 08/09/17 12:30 59 16 112/65 (81) 98 Nasal Cannula 2 08/09/17 12:20 96.8 76 16 113/69 (84) 100 Nasal Cannula 2 I/O 08/09/17 08/09/17 08/09/17 08/10/17 08/10/17 08/10/17 07:00 15:00 23:00 07:00 15:00 23:00 Intake Total 2000 ml 480 ml 600 ml Output Total 250 ml 870 ml Balance 1750 ml 480 ml -270 ml Intake Oral 480 ml 600 ml IV Total 2000 ml Output Urine Total 870 ml Estimated Blood Loss 250 ml # Voids 2 # Bowel Movements 0 0 Imaging Last 72 hours Impressions Tibia/Fibula X-Ray 08/09/17 0000 Signed Impressions: Service Date/Time: Wednesday, August 09, 2017 09:59 - CONCLUSION: Fluoroscopic images during placement of plate and screws along the distal tibia and fibula fixating fractures Julius Ryder MD Clavicle X-Ray 08/09/17 0000 Signed Impressions: Service Date/Time: Wednesday, August 09, 2017 09:59 - CONCLUSION: Fluoroscopic images during placement of plate and screws along the right clavicle fixating fracture. Julius Ryder MD Objective Remarks Right upper extremity. Clean dry dressings intact over clavicle. Intact sensation of the radial ulnar median nerve distributions. He is able fully extend and flex all his fingers right hand. Right lower extremity: Clean dry splint in place. Intact sensation distally in toes. Is able to move all his toes appropriately Assessment & Plan Assessment and Plan Right clavicle fracture ORIF POD 1 Nonweightbearing right upper extremity Dry dressings with change POD 2 Right distal tibia and fibula fractures with removal external fixation with open reduction internal fixation POD 1 Maintain splint Elevation Nonweightbearing right lower extremity Plan on DC of pain pump at 1 PM today Plan for discharge to home tomorrow once pain is controlled Follow-up appointment Dr. Goodrich or PA in 2 weeks Fabricio Peters Jr. Aug 10, 2017 07:52
[2017-08-10] MEDS ORDERED: XARE10TA PO (07:56)
[2017-08-10] MEDS ORDERED: ENDO10TA8 PO (07:56)
[2017-08-10] MEDS: CALCIUM/VITAMIN D 250 MG/125 U TAB PO SCH ×3 (08:15→17:45)
[2017-08-10] MEDS: LACTATED RINGER'S 1000 ML INJ 1,000 ML IV SCH ×2 (08:20→18:00)
[2017-08-10] MEDS: VANCOMYCIN INJ 1,000 MG in SODIUM CHLOR 0.9% 250 ML INJ 250 ML IV SCH ×2 (11:10→23:29)
[2017-08-10] MEDS: ENOXAPARIN SODIUM 40 MG/0.4 ML SYRINGE SQ SCH (11:10)
[2017-08-10] MEDS: PCA - TOTAL MG DILAUDID DELIVERED PER SHIFT SCH ×2 (14:00→22:00)
[2017-08-10] MEDS: HYDROmorphone HCL PF 2 MG/ML VIAL IV PUSH PRN (21:29)
[2017-08-11 00:10] VITALS: BP 127/70; PULSE 80; RESP 17; TEMP 96.8; O2SAT 100
[2017-08-11] MEDS: HYDROmorphone HCL PCA 6 MG/30 ML IV SCH ×2 (01:50→07:01)
[2017-08-11 01:58] VITALS: BP 117/70; PULSE 67
[2017-08-11] MEDS: ceFAZolin 2 GM PREMIX 50 ML IV SCH ×2 (02:01→09:31)
[2017-08-11] MEDS: LACTATED RINGER'S 1000 ML INJ 1,000 ML IV SCH (04:00)
[2017-08-11 04:10] VITALS: BP 103/69; PULSE 78; RESP 17; TEMP 96.8; O2SAT 95
[2017-08-11] MEDS: PCA - TOTAL MG DILAUDID DELIVERED PER SHIFT SCH (06:00)
[2017-08-11 08:00] VITALS: BP 116/63; PULSE 82; RESP 18; TEMP 97.1; O2SAT 94
--- NOTE | 2017-08-11 08:10 | PD.ORT.PN ---
Subjective Subjective Remarks Had increased pain overnight and pain pump was reinstated. States the pain has continued to improve. He did remove stirrup portion of his short leg splint. He has no new complaints Objective Vitals Vital Signs Date Time Temp Pulse Resp B/P (MAP) Pulse Ox O2 Delivery O2 Flow Rate FiO2 08/11/17 04:10 96.8 78 17 103/69 (80) 95 08/11/17 01:58 67 117/70 (86) 08/11/17 01:50 17 08/11/17 00:10 96.8 80 17 127/70 (89) 100 08/10/17 20:10 97.0 66 19 119/70 (86) 99 08/10/17 15:57 96.2 90 18 129/70 (89) 97 08/10/17 11:38 96.3 63 18 114/66 (82) 100 I/O 08/10/17 08/10/17 08/10/17 08/11/17 08/11/17 08/11/17 07:00 15:00 23:00 07:00 15:00 23:00 Intake Total 600 ml 300 ml 2480 ml 480 ml Output Total 870 ml Balance -270 ml 300 ml 2480 ml 480 ml Intake Oral 600 ml 480 ml 480 ml IV Total 300 ml 2000 ml Output Urine Total 870 ml # Voids 2 1 # Bowel Movements 0 0 0 Imaging Last 72 hours Impressions Tibia/Fibula X-Ray 08/09/17 0000 Signed Impressions: Service Date/Time: Wednesday, August 09, 2017 09:59 - CONCLUSION: Fluoroscopic images during placement of plate and screws along the distal tibia and fibula fixating fractures Julius Ryder MD Clavicle X-Ray 08/09/17 0000 Signed Impressions: Service Date/Time: Wednesday, August 09, 2017 09:59 - CONCLUSION: Fluoroscopic images during placement of plate and screws along the right clavicle fixating fracture. Julius Ryder MD Objective Remarks Right upper extremity. Clean dry dressings intact over clavicle. Intact sensation of the radial ulnar median nerve distributions. He is able fully extend and flex all his fingers right hand. Right lower extremity: Clean dry splint in place. Stirrup splint is sitting beside his leg. Shine wraps off and removed. Intact sensation distally in toes. Is able to move all his toes appropriately Assessment & Plan Assessment and Plan Right clavicle fracture ORIF POD 2 Nonweightbearing right upper extremity Dry dressings Right distal tibia and fibula fractures with removal external fixation with open reduction internal fixation POD 1 Maintain splint - [employer] to apply a new stirrup splint to ankle Elevation Nonweightbearing right lower extremity Plan on DC of pain pump at 1000 is morning Plan for discharge to home today once pain is controlled Follow-up appointment Dr. Goodrich or PA in 2 weeks Fabricio Peters Jr. Aug 11, 2017 08:10
[2017-08-11] MEDS: CALCIUM/VITAMIN D 250 MG/125 U TAB PO SCH ×2 (09:27→13:27)
[2017-08-11] MEDS: ACETAMINOPHEN/HYDROcodone 325 MG/10 MG TAB PO PRN ×2 (09:28→13:28)
[2017-08-11] MEDS: ONDANSETRON HCL 4 MG/2 ML VIAL IVP PRN (09:56)
[2017-08-11] MEDS: VANCOMYCIN INJ 1,000 MG in SODIUM CHLOR 0.9% 250 ML INJ 250 ML IV SCH (11:12)
[2017-08-11] MEDS: ENOXAPARIN SODIUM 40 MG/0.4 ML SYRINGE SQ SCH (11:12)
[2017-08-11 12:00] VITALS: BP 112/70; PULSE 79; RESP 18; TEMP 95.8; O2SAT 96
== END 2017-08-11 13:38 | disposition home or self-care (01) | DRG 494 ==
LOC: HSDI 06:12 → N06B 16:07
PROVIDERS: ADMIT Orthopaedic Surgery Orthopaedic Trauma; ATTEND Orthopaedic Surgery Orthopaedic Trauma
PROC: 0QSJ04Z Reposition Right Fibula with Internal Fixation Device, Open Approach (ICD-10-PCS; 2017-08-09)
PROC: 0QPGX5Z Removal of External Fixation Device from Right Tibia, External Approach (ICD-10-PCS; 2017-08-09)
PROC: 0QSG04Z Reposition Right Tibia with Internal Fixation Device, Open Approach (ICD-10-PCS; principal; 2017-08-09 08:47)
PROC: 0PS904Z Reposition Right Clavicle with Internal Fixation Device, Open Approach (ICD-10-PCS; 2017-08-09 08:47)
DX: S82.301E Unspecified fracture of lower end of right tibia, subsequent encounter for open fracture type I or II with routine healing (principal); F17.210 Nicotine dependence, cigarettes, uncomplicated; S82.831E Other fracture of upper and lower end of right fibula, subsequent encounter for open fracture type I or II with routine healing; S42.021D Displaced fracture of shaft of right clavicle, subsequent encounter for fracture with routine healing
CPT/HCPCS: 73000; 73590; 76000; 94150; C1713; J0690; J1100; J1170; J1580; J1650; J1885; J2250; J2405; J2710; J2795; J3010; J3370; J3410; J7050; J7120; J8501

== ENCOUNTER 2017-09-10 03:04 | Emergency (ER) | payer OTHER ==
[~2017-09-10] VITALS: Ht 203.2 cm; Wt 100.2 kg
[~2017-09-10 03:04] MED LIST changes: -MAGN30S PO; -PERI PO
[2017-09-10 03:10] VITALS: BP 140/86; PULSE 96; RESP 18; TEMP 98.1; O2SAT 100
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
--- NOTE | 2017-09-10 04:48 | RADRPT ---
EXAM DATE/TIME: 09/10/2017 04:18 [place] COMPARISON: TIBIA/FIBULA RIGHT (AP/LAT), August 09, 2017, 9:59. INDICATIONS : Swelling, and open wound. MEDICAL HISTORY : None. SURGICAL HISTORY : Right clavicle ORIF. Right Tibia/fibula ORIF. Ex fix right ankle. ENCOUNTER: Initial ACUITY: 1 week PAIN SCORE: 0/10 LOCATION: Right ankle FINDINGS: 3 views of the right ankle. Lateral distal tibial internal fixation plate and multiple transfixing sc rews and lateral distal fibula internal fixation plate and multiple transfixing screws. Comminuted fr acture of the distal tibia again seen. Distal fibular shaft fracture again seen. Alignment is grossly unchanged. No advanced bony bridging seen at the fracture sites. No new fractures identified. CONCLUSION: Distal tibia and fibular fractures again seen status post ORIF. No evidence of bone bridging at the f racture sites. No new fractures identified. No focal bone erosion identified. Héctor Faustin MD on September 10, 2017 at 4:45 Board Certified Radiologist. This report was verified electronically.
[2017-09-10 04:56] VITALS: BP 123/79; PULSE 69; RESP 16; O2SAT 98
== END 2017-09-10 05:05 | disposition home or self-care (01) ==
LOC: PHED 03:04
DX: T81.30XA Disruption of wound, unspecified, initial encounter (principal); S82.301D Unspecified fracture of lower end of right tibia, subsequent encounter for closed fracture with routine healing; M19.049 Primary osteoarthritis, unspecified hand; B95.61 Methicillin susceptible Staphylococcus aureus infection as the cause of diseases classified elsewhere; V49.9XXD Car occupant (driver) (passenger) injured in unspecified traffic accident, subsequent encounter; Z79.899 Other long term (current) drug therapy
CPT/HCPCS: 73610; 86403; 87070; 87186; 87205; 99284

== ENCOUNTER 2017-09-26 20:08 | Inpatient (IN) | payer OTHER ==
[~2017-09-26] VITALS: Ht 203.2 cm; Wt 105.0 kg
[2017-09-26 20:24] VITALS: BP 120/65; PULSE 112; RESP 16; TEMP 98.5; O2SAT 99
[2017-09-26 20:50] VITALS: BP 118/64; PULSE 99; RESP 18; O2SAT 99
--- NOTE | 2017-09-26 21:02 | PD ---
HPI Chief Complaint: Pain: Acute or Chronic Time Seen by Provider: 20:42 Travel History International Travel<30 days: No Contact w/Intl Traveler<30days: No Traveled to known affect area: No History of Present Illness HPI 42yo M with PSH of ORIF right distal tibia and fibula by Dr. Goodrich 08/11/17 said he was sent here from Dr. Goodrich's office today for admission and antibiotics. Pt has a open wound in right distal fibula that seems deep and a superficial wound on medial aspect. Denies any fever, chest pain, sob, n/v, abdominal pain , focal weakness or numbness. Denies any new trauma. PFSH Past Medical History Arthritis: Yes (HAND) Cancer: No Cardiovascular Problems: No Diabetes: No Endocrine: No Genitourinary: No Hepatitis: No Hiatal Hernia: No Immune Disorder: No Implanted Vascular Access Dvce: No Musculoskeletal: Yes (RIGHT LEG FRACTURE, RIGHT CLAVICLE FRACTURE) Neurologic: No Psychiatric: No Reproductive: No Respiratory: No Thyroid Disease: No Tetanus Vaccination: Unknown Influenza Vaccination: No Past Surgical History AICD: No Cardiac Surgery: No Ear Surgery: No Endocrine Surgery: No Eye Surgery: No Genitourinary Surgery: No Joint Replacement: No Oral Surgery: No Pacemaker: No Thoracic Surgery: No Social History Alcohol Use: Yes (occasionally) Tobacco Use: Yes Substance Use: No Allergies-Medications (Allergen,Severity, Reaction): Coded Allergies: No Known Allergies (Verified Allergy, Mild, 09/26/17) Reported Meds & Prescriptions Reported Meds & Active Scripts Active No Active Prescriptions or Reported Medications Review of Systems Except as stated in HPI: all other systems reviewed are Neg Physical Exam Narrative GENERAL: 42yo M not in distress. SKIN: Focused skin assessment warm/dry. HEAD: Atraumatic. Normocephalic. EYES: Pupils equal and round. No scleral icterus. No injection or drainage. ENT: No nasal bleeding or discharge. Mucous membranes pink and moist. NECK: Trachea midline. No JVD. CARDIOVASCULAR: Regular rate and rhythm. No murmur appreciated. RESPIRATORY: No accessory muscle use. Clear to auscultation. Breath sounds equal bilaterally. GASTROINTESTINAL: Abdomen soft, non-tender, nondistended. MUSCULOSKELETAL: RLE: +6cm by 3cm open wound lateral malleolus that may be tracking to the bone. No purulent discharge. Medial malleolus: +6cm by 3cm open wound that is superficial with no purulent discharge. NEUROLOGICAL: Awake and alert. No obvious cranial nerve deficits. Motor grossly within normal limits. Normal speech. PSYCHIATRIC: Appropriate mood and affect; insight and judgment normal. Data Data Last Documented VS Vital Signs Date Time Temp Pulse Resp B/P (MAP) Pulse Ox O2 Delivery O2 Flow Rate FiO2 09/26/17 20:50 99 18 118/64 (82) 99 Room Air 09/26/17 20:24 98.5 Orders Orders Complete Blood Count With Diff (09/26/17 20:53) Basic Metabolic Panel (Bmp) (09/26/17 20:53) Blood Culture (09/26/17 20:53) Lactic Acid Sepsis Protocol (09/26/17 20:53) Prothrombin Time / Inr (Pt) (09/26/17 20:53) Act Partial Throm Time (Ptt) (09/26/17 20:53) Wound Culture And Gram Stain (09/26/17 21:02) Npo After Midnight W/ Po Meds (09/27/17 Breakfast) Oxycodone-Acetamin 5-325 Mg (Percocet (09/26/17 22:00) Admit Order (Ed Use Only) (09/26/17 22:08) Labs Laboratory Tests Test 09/26/17 21:10 White Blood Count 7.0 TH/MM3 Red Blood Count 4.59 MIL/MM3 Hemoglobin 13.8 GM/DL Hematocrit 41.0 % Mean Corpuscular Volume 89.3 FL Mean Corpuscular Hemoglobin 30.1 PG Mean Corpuscular Hemoglobin Concent 33.8 % Red Cell Distribution Width 14.3 % Platelet Count 287 TH/MM3 Mean Platelet Volume 8.4 FL Neutrophils (%) (Auto) 49.8 % Lymphocytes (%) (Auto) 30.1 % Monocytes (%) (Auto) 14.2 % Eosinophils (%) (Auto) 4.6 % Basophils (%) (Auto) 1.3 % Neutrophils # (Auto) 3.5 TH/MM3 Lymphocytes # (Auto) 2.1 TH/MM3 Monocytes # (Auto) 1.0 TH/MM3 Eosinophils # (Auto) 0.3 TH/MM3 Basophils # (Auto) 0.1 TH/MM3 CBC Comment DIFF FINAL Differential Comment Prothrombin Time 9.7 SEC Prothromb Time International Ratio 1.0 RATIO Activated Partial Thromboplast Time 27.0 SEC Blood Urea Nitrogen 11 MG/DL Creatinine 1.07 MG/DL Random Glucose 90 MG/DL Calcium Level 9.5 MG/DL Sodium Level 139 MEQ/L Potassium Level 3.8 MEQ/L Chloride Level 106 MEQ/L Carbon Dioxide Level 27.2 MEQ/L Anion Gap 6 MEQ/L Estimat Glomerular Filtration Rate 75 ML/MIN Lactic Acid Level 1.3 mmol/L MDM Medical Decision Making Medical Screen Exam Complete: Yes Emergency Medical Condition: Yes Differential Diagnosis Osteomyelitis vs. nonhealing wound Narrative Course 42yo M was sent here by Dr. Goodrich's office for admission. I call Dr. Goodrich and discussed with his PA and he would like pt to be admitted to medicine, NPO after midnight, wound culture and they will do wash out in the OR tomorrow. He said no antibiotics at this time. Labs reviewed, no leukocytosis. H/H normal. Lactic acid normal at 1.3. Discussed with Dr. Ro and accepted to her service. Diagnosis Primary Impression: Wound of right ankle Qualified Codes: S91.001D - Unspecified open wound, right ankle, subsequent encounter Admitting Information Admitting Physician Requests: Observation Scripts No Active Prescriptions or Reported Meds Hermila Rosen DO Sep 26, 2017 21:02
[2017-09-26 21:33] LABS: AUTOMATED NEUTROPHIL # 3.5 TH/MM3 (1.8-7.7); BASOPHIL # 0.1 TH/MM3 (0-0.2); BASOPHIL % 1.3 % (0.0-2.0); EOSINOPHIL # 0.3 TH/MM3 (0-0.4); EOSINOPHIL % 4.6 % (0.0-4.0); HEMOGLOBIN 13.8 GM/DL (13.0-17.0); LYMPH % 30.1 % (9.0-44.0); LYMPHOCYTE # 2.1 TH/MM3 (1.0-4.8); MEAN CELL VOLUME 89.3 FL (80.0-100.0); MEAN CORPUSCULAR HEMOGLOBIN 30.1 PG (27.0-34.0); MEAN CORPUSCULAR HGB CONC 33.8 % (32.0-36.0); MEAN PLATELET VOLUME 8.4 FL (7.0-11.0); MONO % 14.2 % (0.0-8.0); NEUT % 49.8 % (16.0-70.0); PLATELET COUNT 287 TH/MM3 (150-450); RED BLOOD COUNT 4.59 MIL/MM3 (4.50-5.90); RED CELL DISTRIBUTION WIDTH 14.3 % (11.6-17.2)
[2017-09-26 21:42] LABS: BICARBONATE 27.2 MEQ/L (21.0-32.0); CALCIUM 9.5 MG/DL (8.5-10.1); CREATININE 1.07 MG/DL (0.60-1.30)
[2017-09-26 21:45] LABS: PROTHROMBIN TIME - PATIENT 9.7 SEC (9.8-11.6)
[2017-09-26] MEDS ORDERED: oxyCODONE/ACETAMINOPHEN 5 MG/325 MG TAB PO ONE (22:00)
[2017-09-26] MEDS ORDERED: oxyCODONE/ACETAMINOPHEN 5 MG/325 MG TAB PO PRN (23:00)
[2017-09-26] MEDS ORDERED: ACETAMINOPHEN 325 MG TAB PO PRN (23:00)
[2017-09-26] MEDS ORDERED: SODIUM CHLORIDE 0.9% FLUSH 10 ML FLUSH IV FLUSH PRN (23:00)
[2017-09-26] MEDS ORDERED: NALOXONE HCL 0.4 MG/ML AMP IV PUSH PRN (23:00)
[2017-09-26] MEDS ORDERED: LACTULOSE SYRUP 20 GM/30 ML CUP PO PRN (23:00)
[2017-09-26] MEDS ORDERED: SENNOSIDES 8.6 MG TAB PO PRN (23:00)
[2017-09-26] MEDS ORDERED: BISACODYL 10 MG SUPP RECTAL PRN (23:00)
[2017-09-26] MEDS ORDERED: MAGNESIUM HYDROXIDE SUSP 30 ML CUP PO PRN (23:00)
--- NOTE | 2017-09-27 00:52 | HHI.HP ---
[facility] Service [facility] Primary Care Physician No Primary Care Physician Admission Diagnosis Right ankle wound Diagnoses: Travel History International Travel<30 Days: No Contact w/Intl Traveler <30 Da: No Traveled to Known Affected Are: No History of Present Illness 42-year-old male status post ORIF of the right tibia/fibula on 08/09/[address] Martinez complicated by wound dehiscence presents to the emergency department from Dr. Martinez's office today for further treatment of his wound dehiscence. The patient reports severe pain in his right lateral ankle. He denies any chest pain or shortness of breath. No abdominal pain. No nausea/vomiting/ diarrhea. No fatigue/weakness. No fevers/chills. Review of Systems Except as stated in HPI: all other systems reviewed are Neg Past Family Social History Past Medical History None Past Surgical History ORIF right tibia/fibula Right clavicle repair Reported Medications Reported Meds & Active Scripts Active No Active Prescriptions or Reported Medications Allergies: Coded Allergies: No Known Allergies (Verified Allergy, Mild, 09/26/17) Family History Negative for CAD/DM Social History Smokes approximately 1 pack per day. Rare alcohol. Denies illicit drugs. Physical Exam Vital Signs Vital Signs Date Time Temp Pulse Resp B/P (MAP) Pulse Ox O2 Delivery O2 Flow Rate FiO2 09/26/17 20:50 99 18 118/64 (82) 99 Room Air 09/26/17 20:24 98.5 112 16 120/65 (83) 99 Physical Exam GENERAL: male lying in bed SKIN: Deep wound over the lateral aspect of the right ankle HEAD: Atraumatic. Normocephalic. No temporal or scalp tenderness. EYES: Pupils equal round and reactive. Extraocular motions intact. No scleral icterus. No injection or drainage. ENT: Nose without bleeding, purulent drainage or septal hematoma. Throat without erythema, tonsillar hypertrophy or exudate. Uvula midline. Airway patent. NECK: Trachea midline. No JVD or lymphadenopathy. Supple, nontender, no meningeal signs. CARDIOVASCULAR: Regular rate and rhythm without murmurs, gallops, or rubs. RESPIRATORY: Clear to auscultation. Breath sounds equal bilaterally. No wheezes , rales, or rhonchi. GASTROINTESTINAL: Abdomen soft, non-tender, nondistended. No hepato-splenomegaly , or palpable masses. No guarding. MUSCULOSKELETAL: Extremities without clubbing, cyanosis, or edema. No joint tenderness, effusion, or edema noted. No calf tenderness. NEUROLOGICAL: Awake and alert. Cranial nerves II through XII intact. Motor and sensory grossly within normal limits. Normal speech. Laboratory Laboratory Tests Test 09/26/17 21:10 White Blood Count 7.0 Red Blood Count 4.59 Hemoglobin 13.8 Hematocrit 41.0 Mean Corpuscular Volume 89.3 Mean Corpuscular Hemoglobin 30.1 Mean Corpuscular Hemoglobin Concent 33.8 Red Cell Distribution Width 14.3 Platelet Count 287 Mean Platelet Volume 8.4 Neutrophils (%) (Auto) 49.8 Lymphocytes (%) (Auto) 30.1 Monocytes (%) (Auto) 14.2 Eosinophils (%) (Auto) 4.6 Basophils (%) (Auto) 1.3 Neutrophils # (Auto) 3.5 Lymphocytes # (Auto) 2.1 Monocytes # (Auto) 1.0 Eosinophils # (Auto) 0.3 Basophils # (Auto) 0.1 CBC Comment DIFF FINAL Differential Comment Prothrombin Time 9.7 Prothromb Time International Ratio 1.0 Activated Partial Thromboplast Time 27.0 Blood Urea Nitrogen 11 Creatinine 1.07 Random Glucose 90 Calcium Level 9.5 Sodium Level 139 Potassium Level 3.8 Chloride Level 106 Carbon Dioxide Level 27.2 Anion Gap 6 Estimat Glomerular Filtration Rate 75 Lactic Acid Level 1.3 Date/Time Source Procedure Growth Status 09/26/17 21:10 Blood Peripheral Aerobic Blood Culture Pending Received 09/26/17 21:10 Blood Peripheral Anaerobic Blood Culture Pending Received 09/26/17 21:10 Wound Foot Gram Stain Pending Received 09/26/17 21:10 Wound Foot Wound Culture Pending Received Result Diagram: 09/26/17210909/26/172109 Caprini VTE Risk Assessment Caprini VTE Risk Assessment: No/Low Risk (score <= 1) Caprini Risk Assessment Model Point Value = 1 Point Value = 2 Point Value = 3 Point Value = 5 Age 41-60 Minor surgery BMI > 25 kg/m2 Swollen legs Varicose veins or History of unexplained or recurrent spontaneous Oral contraceptives or hormone replacement Sepsis (< 1 month) Serious lung disease, including pneumonia (< 1 month) Abnormal pulmonary function Acute myocardial infarction Congestive heart failure (< 1 month) History of inflammatory bowel disease Medical patient at bed rest Age 61-74 Arthroscopic surgery Major open surgery (> 45 min) Laparoscopic surgery (> 45 min) Malignancy Confined to bed (> 72 hours) Immobilizing plaster cast Central venous access Age >= 75 History of VTE Family history of VTE Factor V Leiden Prothrombin [id number] Lupus anticoagulant Anticardiolipin antibodies Elevated serum homocysteine Heparin-induced thrombocytopenia Other congenital or acquired thrombophilia Stroke (< 1 month) Elective arthroplasty Hip, pelvis, or leg fracture Acute spinal cord injury (< 1 month) Prophylaxis Regimen Total Risk Factor Score Risk Level Prophylaxis Regimen 0-1 Low Early ambulation 2 Moderate Order ONE of the following: *Sequential Compression Device (SCD) *Heparin 5000 units SQ BID 3-4 Higher Order ONE of the following medications: *Heparin 5000 units SQ TID *Enoxaparin/Lovenox 40 mg SQ daily (WT < 150 kg, CrCl > 30 mL/min) *Enoxaparin/Lovenox 30 mg SQ daily (WT < 150 kg, CrCl > 10-29 mL/min) *Enoxaparin/Lovenox 30 mg SQ BID (WT < 150 kg, CrCl > 30 mL/min) AND/OR *Sequential Compression Device (SCD) 5 or more Highest Order ONE of the following medications: *Heparin 5000 units SQ TID (Preferred with Epidurals) *Enoxaparin/Lovenox 40 mg SQ daily (WT < 150 kg, CrCl > 30 mL/min) *Enoxaparin/Lovenox 30 mg SQ daily (WT < 150 kg, CrCl > 10-29 mL/min) *Enoxaparin/Lovenox 30 mg SQ BID (WT < 150 kg, CrCl > 30 mL/min) AND *Sequential Compression Device (SCD) Assessment and Plan Assessment and Plan Assessment/plan: 1. Wound dehiscence Orthopedic surgery consulted, plan for OR for washout in the a.m. Percocet for pain Per orthopedic surgery, no antibiotics at this time FEN NPO NS at 100 cc/hr Electrolytes: Monitor and replete as needed Lazara Ro MD Sep 27, 2017 00:52
[2017-09-27 01:00] VITALS: BP 142/84; PULSE 71; RESP 16; TEMP 98.3; O2SAT 98
[2017-09-27] MEDS: oxyCODONE/ACETAMINOPHEN 10 MG/325 MG TAB PO PRN ×4 (03:24→21:09)
[2017-09-27] MEDS: SODIUM CHLOR 0.9% 1000 ML INJ 1,000 ML IV SCH ×3 (03:25→21:08)
[2017-09-27 03:38] VITALS: BP 130/73; PULSE 78; RESP 16; TEMP 98.2; O2SAT 99
[2017-09-27 04:39] LABS: AUTOMATED NEUTROPHIL # 4.6 TH/MM3 (1.8-7.7); BASOPHIL # 0.1 TH/MM3 (0-0.2); BASOPHIL % 1.1 % (0.0-2.0); EOSINOPHIL # 0.3 TH/MM3 (0-0.4); EOSINOPHIL % 3.2 % (0.0-4.0); HEMATOCRIT 34.9 % (39.0-51.0); HEMOGLOBIN 11.8 GM/DL (13.0-17.0); LYMPH % 24.3 % (9.0-44.0); MEAN CELL VOLUME 88.5 FL (80.0-100.0); MEAN CORPUSCULAR HGB CONC 33.9 % (32.0-36.0); MEAN PLATELET VOLUME 8.4 FL (7.0-11.0); MONO % 16.7 % (0.0-8.0); MONOCYTE # 1.4 TH/MM3 (0-0.9); NEUT % 54.7 % (16.0-70.0); PLATELET COUNT 249 TH/MM3 (150-450); RED BLOOD COUNT 3.94 MIL/MM3 (4.50-5.90); RED CELL DISTRIBUTION WIDTH 14.7 % (11.6-17.2); WHITE BLOOD COUNT 8.3 TH/MM3 (4.0-11.0)
[2017-09-27 05:02] LABS: BICARBONATE 25.8 MEQ/L (21.0-32.0); CALCIUM 8.6 MG/DL (8.5-10.1); CREATININE 0.89 MG/DL (0.60-1.30)
[2017-09-27 07:32] VITALS: BP 146/76; PULSE 75; RESP 18; TEMP 97.7; O2SAT 98
[2017-09-27] MEDS: SODIUM CHLORIDE 0.9% FLUSH 10 ML FLUSH IV FLUSH SCH ×2 (08:13→21:00)
--- NOTE | 2017-09-27 08:57 | PD.ORT.PN ---
Subjective Subjective Remarks Patient know to Dr Martinez for ORIF of right distal tibfib and right clavicle patient was seen in office yesterday an found ot have large wound on lateral right ankle. patient has been extremely non-compliant and reports cutting off own cast and walking on ankle. Objective Vitals Vital Signs Date Time Temp Pulse Resp B/P (MAP) Pulse Ox O2 Delivery O2 Flow Rate FiO2 09/27/17 07:32 97.7 75 18 146/76 (99) 98 09/27/17 03:38 98.2 78 16 130/73 (92) 99 09/27/17 01:00 98.3 71 16 142/84 (103) 98 09/26/17 20:50 99 18 118/64 (82) 99 Room Air 09/26/17 20:24 98.5 112 16 120/65 (83) 99 Result Diagram: 09/27/17 0413 09/27/17 0413 Other Results Laboratory Tests Test 09/26/17 21:10 Prothromb Time International Ratio 1.0 RATIO Prothrombin Time 9.7 SEC (9.8-11.6) Objective Remarks RLE: dehissence and large wound of lateral ankle approx [id number] with purulent drainage. Assessment & Plan Assessment and Plan 1) Right Distal Tibia/Fibula Fx s/p ORIF with wound dehiscence and infection -NWB -maintain dressings -normal diet -npo after MN -plan for OR tomorrow with Juan for I&D and possible vac placement Alan Sanderson/Conveyor Console Operator PA Sep 27, 2017 08:57
[2017-09-27 12:31] VITALS: BP 141/77; PULSE 75; RESP 18; TEMP 97.8; O2SAT 98
[2017-09-27] MEDS ORDERED: CLINDAMYCIN 600 MG/NS PREMIX 50 ML IV SCH (14:15)
--- NOTE | 2017-09-27 14:19 | HHI.PR ---
Addendum to Inpatient Note Addendum Reason: Additional Documentation Additional Information The patient continued to complain of pain. He said he heard he was having surgery tomorrow. He said he has been in pain for months. Wound culture is growing staph aureus. Start IV clindamycin along with lactobacillus. Increased pain control. Follow-up with orthopedic surgery for washout in the morning. Also, make the patient inpatient. Fabricio Russell DO Sep 27, 2017 14:19
[2017-09-27 16:35] VITALS: BP 132/76; PULSE 75; RESP 18; TEMP 98.2; O2SAT 98
[2017-09-27] MEDS: CLINDAMYCIN 600 MG/NS 100 ML IV SCH ×2 (16:47)
[2017-09-27] MEDS: LACTOBACILLUS ACIDOPHILUS 1 GM PACKET PO SCH (17:25)
[2017-09-27 21:00] VITALS: BP 132/98; PULSE 85; RESP 18; TEMP 99; O2SAT 99
[2017-09-27] MEDS: DOCUSATE SODIUM 50 MG/SENNA 8.6 MG TAB PO SCH (21:00)
[2017-09-28 01:04] VITALS: BP 120/64; PULSE 76; RESP 18; TEMP 98.2; O2SAT 98
[2017-09-28] MEDS: CLINDAMYCIN 600 MG/NS 100 ML IV SCH ×6 (01:06→15:24)
[2017-09-28] MEDS: oxyCODONE/ACETAMINOPHEN 10 MG/325 MG TAB PO PRN ×3 (01:16→21:56)
[2017-09-28 04:12] VITALS: BP 123/74; PULSE 71; RESP 16; TEMP 98; O2SAT 97
[2017-09-28] MEDS: SODIUM CHLOR 0.9% 1000 ML INJ 1,000 ML IV SCH ×3 (04:26→21:10)
[2017-09-28] MEDS ORDERED: VANCOMYCIN HCL 1000 MG VIAL ONE ×2 (06:51→07:47)
[2017-09-28] MEDS ORDERED: GENTAMICIN SULFATE 80 MG/2 ML VIAL ONE ×2 (06:51→07:48)
[2017-09-28] MEDS ORDERED: SODIUM CHLOR 0.9% 250 ML INJ 250 ML ONE (06:52)
[2017-09-28] MEDS ORDERED: CLINDAMYCIN PHOS 900 MG/6 ML VIAL ONE (07:19)
--- NOTE | 2017-09-28 08:08 | PD.OP ---
cc: Timur Goodrich MD Operative Report Date of Surgery: Sep 28, 2017 Preoperative Diagnosis: Open right ankle wound with infection Postoperative Diagnosis: Procedure: Irrigation and debridement of right ankle and fibula, application of wound VAC dressing Anesthesia: General Surgeon: Timur Goodrich Grape Crusher(s): CARLTON Leary PA-C The surgical procedure was assisted by my physician psychiatric technician assistant. My P.A. presence was necessary throughout this case for the manipulation and positioning of the surgical extremity. My P.A. was assisting me throughout the duration of this procedure. The skill set of a physician psychiatric technician assistant was medically necessary to complete this procedure. During the surgical case the surgical services tech was working at the back table and the physician psychiatric technician assistant was directly assisting me. Operation and Findings: Je is known to me from previous treatment of right distal tibia and fibular fractures. He was initially treated with external fixation. He then had staged procedure for open reduction internal fixation of distal tibia and fibula. After discharge from the hospital, patient has been completely noncompliant with postoperative instructions. He was placed in a cast in clinic , but he removed the cast himself 3 days later. He was instructed to be completely nonweightbearing. He has been walking full weightbearing without assistive devices. He has been riding his motorcycle. He was in the emergency room with complaints of open wound. It is unclear how the open wound has been present. Patient was seen and evaluated. Informed consent was obtained preoperatively. Operative site was marked. I discussed with patient the fact that if infection continues he could end up with an amputation. He will need to start complying with surgical instructions or he will be at increased risk of developing chronic infection and below-knee amputation. He understands that he has been noncompliant but does not agree to changes and start following instructions. Patient was brought to the operating and placed on or table. He was given IV sedation and general anesthesia. Antibiotics were held until cultures were obtained. Timeout procedure was performed. The right leg was prepped with alcohol followed by Hibiclens and draped in usual sterile fashion. Procedure began with irrigation debridement of the wound. Skin subcutaneous tissue, fascia, and bone were sharply debrided. An excisional debridement was performed. Tissue was obtained for cultures. After cultures were obtained and antibiotics were given. There was an area of exposed hardware of the fibula. The tibia hardware was not exposed in the open wound. After thorough debridement the wound was thoroughly irrigated with pulsatile lavage. At this point the wound appeared to be clean. Next is to return to wound VAC dressing. A VAC dressing was cut to fit the wound. VAC dressing was sealed appropriately. Vera flow settings were utilized. Vancomycin and gentamicin were added to the irrigation fluid. Dressings were applied. Patient was awakened and transferred to recovery in stable condition. Timur Goodrich MD Sep 28, 2017 08:08
[2017-09-28] MEDS ORDERED: *MEPERIDINE 25 MG INJ VIAL PERIprocedural Use ONLY ONE (08:34)
[2017-09-28] MEDS: LACTOBACILLUS ACIDOPHILUS 1 GM PACKET PO SCH ×3 (09:00→18:10)
[2017-09-28] MEDS: SODIUM CHLORIDE 0.9% FLUSH 10 ML FLUSH IV FLUSH SCH ×2 (09:00→20:10)
[2017-09-28] MEDS: DOCUSATE SODIUM 50 MG/SENNA 8.6 MG TAB PO SCH ×2 (09:00→21:00)
[2017-09-28] MEDS ORDERED: *morphine SULFATE 4 MG/ML PERIprocedure ONLY ONE (09:13)
[2017-09-28] MEDS: LACTATED RINGER'S 1000 ML INJ 1,000 ML IV SCH ×2 (09:20→17:59)
[2017-09-28] MEDS ORDERED: DO NOT ADM ANY ANTICOAGULANT DRUGS PRN (11:30)
[2017-09-28] MEDS ORDERED: ROCURONIUM INJ 50 MG/5 ML SYRINGE IV PUSH ONE (12:00)
[2017-09-28] MEDS ORDERED: PROPOFOL 200 MG/20 ML AMP IV ONE (12:00)
[2017-09-28] MEDS ORDERED: GLYCOPYRROLATE 1 MG/5 ML SYRINGE IV PUSH ONE (12:00)
[2017-09-28] MEDS ORDERED: DEXAMETHASONE SOD PHOS 4 MG/ML VIAL IV ONE (12:00)
[2017-09-28] MEDS ORDERED: LIDOCAINE HCL 1% PF 5 ML SYRINGE OTHER ONE (12:00)
[2017-09-28] MEDS ORDERED: ONDANSETRON HCL 4 MG/2 ML VIAL IV ONE (12:00)
[2017-09-28] MEDS ORDERED: ePHEDrine/NS 25 MG/5 ML SYRINGE IV ONE (12:00)
[2017-09-28] MEDS ORDERED: KETOROLAC TROMETHAMINE 30 MG/ML (IVP) VIAL IV PUSH ONE (12:00)
[2017-09-28] MEDS ORDERED: VECURONIUM BROMIDE 20 MG VIAL IV ONE (12:00)
[2017-09-28] MEDS ORDERED: NEOSTIGMINE 5 MG/5 ML SYRINGE IV PUSH ONE (12:00)
[2017-09-28 12:47] VITALS: BP 126/77; PULSE 70; RESP 18; TEMP 98.5; O2SAT 96
[2017-09-28 16:59] VITALS: BP 114/66; PULSE 76; RESP 20; TEMP 98.4; O2SAT 97
--- NOTE | 2017-09-28 17:13 | HHI.PR ---
Subjective Remarks The patient was seen following surgery. He was resting comfortably. He says the pain medications work. He has no acute complaints. Objective Vitals Vital Signs Date Time Temp Pulse Resp B/P (MAP) Pulse Ox O2 Delivery O2 Flow Rate FiO2 09/28/17 16:59 98.4 76 20 114/66 (82) 97 09/28/17 12:47 98.5 70 18 126/77 (93) 96 09/28/17 10:30 70 16 112/67 (82) 96 Room Air 09/28/17 09:20 98.1 74 16 95 Room Air 09/28/17 09:15 80 15 109/65 (80) 94 Room Air 09/28/17 09:00 79 16 111/65 (80) 96 Room Air 09/28/17 08:30 88 18 124/70 (88) 98 Room Air 09/28/17 08:26 97.6 92 20 117/66 (83) 100 Room Air 09/28/17 04:12 98.0 71 16 123/74 (90) 97 09/28/17 01:04 98.2 76 18 120/64 (82) 98 09/27/17 21:00 99.0 85 18 132/98 (109) 99 I/O 09/27/17 09/27/17 09/27/17 09/28/17 09/28/17 09/28/17 07:00 15:00 23:00 07:00 15:00 23:00 Intake Total 240 ml 2000 ml 1020 ml Output Total 3600 ml 1310 ml Balance 240 ml -1600 ml -290 ml Intake Oral 240 ml 1000 ml 220 ml IV Total 1000 ml 300 ml Other 500 ml Output Urine Total 3600 ml 1300 ml Estimated Blood Loss 10 ml # Voids 2 Result Diagram: 09/27/17 0413 09/27/17 0413 Objective Remarks GENERAL: No distress. HEAD: Atraumatic. Normocephalic. No temporal or scalp tenderness. EYES: Pupils equal round and reactive. Extraocular motions intact. No scleral icterus. No injection or drainage. ENT: Nose without bleeding, purulent drainage or septal hematoma. Throat without erythema, tonsillar hypertrophy or exudate. Uvula midline. Airway patent. NECK: Trachea midline. No JVD or lymphadenopathy. Supple, nontender, no meningeal signs. CARDIOVASCULAR: Regular rate and rhythm without murmurs, gallops, or rubs. RESPIRATORY: Clear to auscultation. Breath sounds equal bilaterally. No wheezes , rales, or rhonchi. GASTROINTESTINAL: Abdomen soft, non-tender, nondistended. No hepato-splenomegaly , or palpable masses. No guarding. MUSCULOSKELETAL: Wound vac in place on right. NEUROLOGICAL: Awake and alert. Cranial nerves II through XII intact. Motor and sensory grossly within normal limits. Normal speech. Procedures I&D Medications and IVs Current Medications Medications (Trade) Dose Ordered Sig/[place] Route Start Time Stop Time Status Last Admin (NS Flush) 2 ml UNSCH PRN IV FLUSH 09/26/17 23:00 (NS Flush) 2 ml BID IV FLUSH 09/27/17 09:00 (Tylenol) 650 mg Q4H PRN PO 09/26/17 23:00 (Zofran Inj) 4 mg Q6H PRN IVP 09/26/17 23:00 (Narcan Inj) 0.4 mg UNSCH PRN IV PUSH 09/26/17 23:00 (Milk Of Magnesia Liq) 30 ml Q12H PRN PO 09/26/17 23:00 (Senokot) 17.2 mg Q12H PRN PO 09/26/17 23:00 (Dulcolax Supp) 10 mg DAILY PRN RECTAL 09/26/17 23:00 (Lactulose Liq) 30 ml DAILY PRN PO 09/26/17 23:00 (Percocet 5-325 Mg) 1 tab Q4H PRN PO 09/26/17 23:00 (Percocet 10-325 Mg) 1 tab Q4H PRN PO 09/26/17 23:00 09/28/17 01:16 Sodium Chloride 1,000 ml @ 100 mls/hr Q10H IV 09/27/17 00:45 09/28/17 04:26 (Lactinex Pkt) 1 gm TID PO 09/27/17 18:00 09/28/17 12:33 Clindamycin Phosphate 600 mg/ Sodium Chloride 104 ml @ 208 mls/hr Q8H IV 09/27/17 16:00 09/28/17 15:24 (Jayla-Colace) 1 tab BID PO 09/27/17 21:00 (Morphine Inj) 4 mg Q4H PRN IV PUSH 09/27/17 14:30 Lactated Ringer's 1,000 ml @ 100 mls/hr Q10H IV 09/28/17 07:59 09/28/17 09:20 (Bacitracin Oint Packet) 0.9 gm UNSCH X1 PRN TOP 09/30/17 11:30 10/02/17 11:29 Miscellaneous Information ALL NURSING DEPARTME... UNSCH PRN .XX 09/28/17 11:30 09/29/17 11:29 A/P Assessment and Plan Wound dehiscence Orthopedic surgery consult appreciated. Wound culture growing staph. S/p irrigation and debridement of right ankle and fibula, application of wound VAC dressing 09/28. - pain control with a bowel regimen. - rehab efforts. - IS. - wound care, anticoagulation, antibiotics and weightbearing per surgery. Anemia Mild. - follow CBC. PPx: Per surgery Fabricio Russell DO Sep 28, 2017 17:13
[2017-09-28 20:00] VITALS: BP 126/69; PULSE 71; RESP 18; TEMP 97.5; O2SAT 98
[2017-09-28] MEDS: MORPHINE SULFATE 2 MG/ML SYRINGE IV PUSH PRN (20:10)
[2017-09-29] VITALS: BP 120/57; PULSE 66; RESP 18; TEMP 97.3; O2SAT 96
[2017-09-29] MEDS: LACTATED RINGER'S 1000 ML INJ 1,000 ML IV SCH ×3 (03:59→23:59)
[2017-09-29 04:00] VITALS: BP 125/71; PULSE 64; RESP 18; TEMP 97.5; O2SAT 95
[2017-09-29] MEDS: oxyCODONE/ACETAMINOPHEN 10 MG/325 MG TAB PO PRN ×2 (06:07→20:07)
[2017-09-29 07:07] LABS: HEMATOCRIT 35.7 % (39.0-51.0); HEMOGLOBIN 12.1 GM/DL (13.0-17.0); MEAN CELL VOLUME 87.7 FL (80.0-100.0); MEAN CORPUSCULAR HEMOGLOBIN 29.6 PG (27.0-34.0); MEAN CORPUSCULAR HGB CONC 33.8 % (32.0-36.0); MEAN PLATELET VOLUME 8.3 FL (7.0-11.0); PLATELET COUNT 234 TH/MM3 (150-450); RED BLOOD COUNT 4.07 MIL/MM3 (4.50-5.90); RED CELL DISTRIBUTION WIDTH 13.8 % (11.6-17.2); WHITE BLOOD COUNT 6.5 TH/MM3 (4.0-11.0)
--- NOTE | 2017-09-29 07:14 | PD.ORT.PN ---
Subjective Subjective Remarks Pain control with no new complaints Objective Vitals Vital Signs Date Time Temp Pulse Resp B/P (MAP) Pulse Ox O2 Delivery O2 Flow Rate FiO2 09/29/17 00:00 97.3 66 18 120/57 (78) 96 09/28/17 20:00 97.5 71 18 126/69 (88) 98 09/28/17 16:59 98.4 76 20 114/66 (82) 97 09/28/17 12:47 98.5 70 18 126/77 (93) 96 09/28/17 10:30 70 16 112/67 (82) 96 Room Air 09/28/17 09:20 98.1 74 16 95 Room Air 09/28/17 09:15 80 15 109/65 (80) 94 Room Air 09/28/17 09:00 79 16 111/65 (80) 96 Room Air 09/28/17 08:30 88 18 124/70 (88) 98 Room Air 09/28/17 08:26 97.6 92 20 117/66 (83) 100 Room Air I/O 09/28/17 09/28/17 09/28/17 09/29/17 09/29/17 09/29/17 07:00 15:00 23:00 07:00 15:00 23:00 Intake Total 2000 ml 1020 ml 104 ml Output Total 3600 ml 1310 ml 425 ml 550 ml Balance -1600 ml -290 ml -321 ml -550 ml Intake Oral 1000 ml 220 ml IV Total 1000 ml 300 ml 104 ml Other 500 ml Output Urine Total 3600 ml 1300 ml 425 ml 550 ml Estimated Blood Loss 10 ml # Voids 2 Result Diagram: 09/29/17 0617 09/27/17 0413 Objective Remarks Right lower extremity: Clean dry dressings intact. Wound VAC in place. Appropriate seal and Veriflo working appropriately Assessment & Plan Assessment and Plan 1) Right Distal Tibia/Fibula Fx s/p ORIF with wound dehiscence and infection POD 1 -NWB -maintain VAC and dressing -Consult infectious disease Fabricio Billings Jr. Sep 29, 2017 07:14
[2017-09-29 08:00] VITALS: BP 110/67; PULSE 69; RESP 18; TEMP 97.5; O2SAT 98
[2017-09-29] MEDS: LACTOBACILLUS ACIDOPHILUS 1 GM PACKET PO SCH ×3 (09:00→18:00)
[2017-09-29] MEDS: DOCUSATE SODIUM 50 MG/SENNA 8.6 MG TAB PO SCH ×2 (09:00→20:09)
[2017-09-29] MEDS: SODIUM CHLORIDE 0.9% FLUSH 10 ML FLUSH IV FLUSH SCH ×2 (09:00→20:09)
[2017-09-29 12:00] VITALS: BP 115/78; PULSE 72; RESP 18; TEMP 98.2; O2SAT 99
--- NOTE | 2017-09-29 12:34 | HHI.PR ---
Subjective Remarks Patient reports he is feeling okay. Complaining of pain in the leg. Pain medication is helping. Objective Vitals Vital Signs Date Time Temp Pulse Resp B/P (MAP) Pulse Ox O2 Delivery O2 Flow Rate FiO2 09/29/17 08:00 97.5 69 18 110/67 (81) 98 09/29/17 04:00 97.5 64 18 125/71 (89) 95 09/29/17 00:00 97.3 66 18 120/57 (78) 96 09/28/17 20:00 97.5 71 18 126/69 (88) 98 09/28/17 16:59 98.4 76 20 114/66 (82) 97 09/28/17 12:47 98.5 70 18 126/77 (93) 96 I/O 09/28/17 09/28/17 09/28/17 09/29/17 09/29/17 09/29/17 07:00 15:00 23:00 07:00 15:00 23:00 Intake Total 2000 ml 1020 ml 104 ml Output Total 3600 ml 1310 ml 425 ml 550 ml Balance -1600 ml -290 ml -321 ml -550 ml Intake Oral 1000 ml 220 ml IV Total 1000 ml 300 ml 104 ml Other 500 ml Output Urine Total 3600 ml 1300 ml 425 ml 550 ml Estimated Blood Loss 10 ml # Voids 2 Result Diagram: 09/29/17 0617 09/27/17 0413 Objective Remarks GENERAL: This is a well-nourished, well-developed patient, in no apparent distress. CARDIOVASCULAR: Normal rate and regular rhythm without murmurs, gallops, or rubs. RESPIRATORY: Good respiratory efforts. Breath sounds equal and clear to auscultation bilaterally. GASTROINTESTINAL: Abdomen soft, non-tender, non-distended. Normal active bowel sounds MUSCULOSKELETAL: Right lower extremity dressing appear intact. There is a wound VAC in place NEURO: Alert & Oriented x4 to person, place, time, situation. Moves all ext x4 PSYCH: Appropriate mood and affect. Procedures Irrigation and debridement of right ankle and fibula, application of wound VAC dressing A/P Assessment and Plan 42-year-old male with: Right Distal Tibia/Fibula Fx s/p ORIF with wound dehiscence and infection: Orthopedic surgery consult appreciated. Wound culture growing staph. S/p irrigation and debridement of right ankle and fibula, application of wound VAC dressing 09/28. - pain control with a bowel regimen. - rehab efforts. - IS. -Infectious disease consulted to assist with antibiotics. Anemia Mild. - follow CBC. PPx: Per surgery Robin Chavarria MD Sep 29, 2017 12:34
[2017-09-29] MEDS: SODIUM CHLOR 0.9% 1000 ML INJ 1,000 ML IV SCH ×2 (12:45→22:45)
--- NOTE | 2017-09-29 14:23 | MB ---
cc: Olu Phelan MD DATE: 09/29/2017 DATE OF CONSULTATION: 09/29/2017 REQUESTING PHYSICIAN: Dr. Timur Martinez. REASON: Right leg wound with Staphylococcus positive. The patient is post-washout procedure with wound VAC application. HISTORY OF PRESENT ILLNESS: This is a 42-year-old white male who had a prior surgery on his left ankle after he had a fracture of the right ankle in 08/2017. He underwent open reduction and internal fixation of right distal tibia and fibular fractures. The patient presented to [facility] on 09/10/2017 with dehiscence of the wound. At that time he had no purulent drainage. A culture of the wound showed Staphylococcus aureus. He developed severe pain in the right lateral ankle and was evaluated by Orthopedic Surgery and he was taken to surgery and underwent irrigation and debridement of the ankle and application of wound VAC. The patient was noted to be noncompliant with postoperative instructions. He reportedly removed the cast that was placed previously. Culture of the wound has Staphylococcus aureus. It is sensitive to oxacillin. The patient has no complaints besides pain in the right ankle. PAST MEDICAL HISTORY: 1. Herniated disk. 2. Fracture of the right clavicle. 3. Right tibia/fibula fracture. ALLERGIES: NO KNOWN DRUG ALLERGIES. MEDICATIONS: 1. Vancomycin 2. Morphine sulfate p.r.n. 3. Percocet 10 p.r.n. SOCIAL HISTORY: Positive tobacco use, occasional alcohol use. Denies substance abuse. FAMILY HISTORY: Noncontributory. REVIEW OF SYSTEMS: Negative on a 10-point review. PHYSICAL EXAMINATION: GENERAL: Well-developed male who is in no acute distress. He is awake but a little drowsy. VITAL SIGNS: Temperature 97.5, BP 110/67, respirations 18, heart rate 69. HEENT: The head is atraumatic. Extraocular movements are grossly intact. Pupils reactive to light. No icterus. Oropharynx: No lesions. NECK: Supple without adenopathy or swelling. LUNGS: Clear breath sounds bilaterally. HEART: Regular S1 and S2, without murmurs, rubs or gallops. ABDOMEN: Bowel sounds present. Soft, nontender. RECTAL: Not performed. EXTREMITIES: The right leg has surgical dressing in place and a wound VAC application. There is serous drainage in the wound VAC tubing. SKIN: No rash. NEUROLOGIC: No gross focal finding. PSYCHIATRIC: The patient is calm and cooperative. LABORATORY DATA: WBC 6.5, platelets 234. Creatinine 0.89, BUN 10, sodium 141. IMPRESSION: 1. Wound infection of the right ankle. The patient is status post open reduction and internal fixation of right tibia/fibula fracture. RECOMMENDATIONS: 1. Discontinue vancomycin intravenous. 2. Begin oxacillin intravenous. 3. Follow the cultures until final. The patient will require a course of antibiotics for the treatment of this wound, 4-6 weeks' duration for treatment of this infection. Because the hardware was not exposed, probably a 4-week course of treatment will suffice. Thank you for this consultation. I will monitor the patient's progress along with you. Olu Phelan MD FFGigi/ISHA , 01:47 PM , 02:21 PM JOHN
[2017-09-29 16:00] VITALS: BP 118/69; PULSE 74; RESP 18; TEMP 98.5; O2SAT 98
[2017-09-29] MEDS: OXACILLIN INJ 2 GM in SODIUM CHLORIDE 0.9% INJ 100 ML IV SCH ×2 (16:00→20:07)
[2017-09-29 20:00] VITALS: BP 123/72; PULSE 75; RESP 18; TEMP 98.3; O2SAT 97
[2017-09-29] MEDS: MORPHINE SULFATE 2 MG/ML SYRINGE IV PUSH PRN (21:09)
[2017-09-30] VITALS: BP 132/61; PULSE 63; RESP 19; TEMP 97.8; O2SAT 96
[2017-09-30] MEDS: oxyCODONE/ACETAMINOPHEN 10 MG/325 MG TAB PO PRN ×6 (00:41→21:15)
[2017-09-30] MEDS: OXACILLIN INJ 2 GM in SODIUM CHLORIDE 0.9% INJ 100 ML IV SCH ×6 (00:41→20:01)
[2017-09-30 04:00] VITALS: BP 118/70; PULSE 61; RESP 22; TEMP 97.7; O2SAT 98
[2017-09-30 08:25] VITALS: BP 130/72; PULSE 61; RESP 18; TEMP 97.8; O2SAT 97
[2017-09-30] MEDS: SODIUM CHLOR 0.9% 1000 ML INJ 1,000 ML IV SCH ×2 (08:32→17:35)
[2017-09-30] MEDS: SODIUM CHLORIDE 0.9% FLUSH 10 ML FLUSH IV FLUSH SCH ×2 (08:32→20:01)
[2017-09-30] MEDS: LACTOBACILLUS ACIDOPHILUS 1 GM PACKET PO SCH ×3 (08:32→17:35)
[2017-09-30] MEDS: LACTATED RINGER'S 1000 ML INJ 1,000 ML IV SCH ×2 (08:32→19:59)
[2017-09-30] MEDS: DOCUSATE SODIUM 50 MG/SENNA 8.6 MG TAB PO SCH ×2 (08:32→20:01)
--- NOTE | 2017-09-30 09:35 | HHI.PR ---
Subjective Remarks Patient inquired about just having the leg amputated. We had an extensive discussion about the goal of treatment for now to avoid amputation. Objective Vitals Vital Signs Date Time Temp Pulse Resp B/P (MAP) Pulse Ox O2 Delivery O2 Flow Rate FiO2 09/30/17 08:25 97.8 61 18 130/72 (91) 97 09/30/17 04:00 97.7 61 22 118/70 (86) 98 09/30/17 00:00 97.8 63 19 132/61 (84) 96 09/29/17 20:00 98.3 75 18 123/72 (89) 97 09/29/17 16:00 98.5 74 18 118/69 (85) 98 09/29/17 12:00 98.2 72 18 115/78 (90) 99 I/O 09/29/17 09/29/17 09/29/17 09/30/17 09/30/17 09/30/17 07:00 15:00 23:00 07:00 15:00 23:00 Output Total 550 ml 2650 ml 740 ml Balance -550 ml -2650 ml -740 ml Output Urine Total 550 ml 1650 ml 740 ml Drainage Total 1000 ml # Bowel Movements 0 Result Diagram: 09/29/17 0617 09/27/17 0413 Objective Remarks GENERAL: This is a well-nourished, well-developed patient, in no apparent distress. CARDIOVASCULAR: Normal rate and regular rhythm without murmurs, gallops, or rubs. RESPIRATORY: Good respiratory efforts. Breath sounds equal and clear to auscultation bilaterally. GASTROINTESTINAL: Abdomen soft, non-tender, non-distended. Normal active bowel sounds MUSCULOSKELETAL: Right lower extremity dressing appear intact. There is a wound VAC in place NEURO: Alert & Oriented x4 to person, place, time, situation. Moves all ext x4 PSYCH: Appropriate mood and affect. Procedures Irrigation and debridement of right ankle and fibula, application of wound VAC dressing A/P Assessment and Plan 42-year-old male with: Right Distal Tibia/Fibula Fx s/p ORIF with wound dehiscence and infection: Orthopedic surgery consult appreciated. Wound culture growing staph. S/p irrigation and debridement of right ankle and fibula, application of wound VAC dressing 09/28. - pain control with a bowel regimen. - rehab efforts. - IS. -Infectious disease following. Cultures growing staph aureus. Switched to Oxacillin. Will need about 4 weeks of IV antibiotics. Patient is aware. He inquired about amputation related to try to treat the infection. Advised him to have further discussion with orthopedics but for now I advised him the goal of treatment is to continue with antibiotics Anemia Mild. - follow CBC. PPx: When ok with surgery Robin Chavarria MD Sep 30, 2017 09:34
[2017-09-30] MEDS ORDERED: BACITRACIN OINT 0.9 GM PKT TOP PRN (11:30)
[2017-09-30 12:32] VITALS: BP 122/57; PULSE 62; RESP 18; TEMP 97.7; O2SAT 98
[2017-09-30 16:05] VITALS: BP 121/72; PULSE 63; RESP 18; TEMP 97.7; O2SAT 98
[2017-09-30 20:00] VITALS: BP 130/71; PULSE 64; RESP 21; TEMP 97.9; O2SAT 97
[2017-10-01] VITALS: BP 134/70; PULSE 76; RESP 20; TEMP 97.5; O2SAT 100
[2017-10-01] MEDS: oxyCODONE/ACETAMINOPHEN 10 MG/325 MG TAB PO PRN ×2 (01:12→20:23)
[2017-10-01] MEDS: OXACILLIN INJ 2 GM in SODIUM CHLORIDE 0.9% INJ 100 ML IV SCH ×6 (01:12→19:08)
[2017-10-01] MEDS: ONDANSETRON HCL 4 MG/2 ML VIAL IVP PRN ×2 (02:37→20:22)
[2017-10-01 04:00] VITALS: BP 136/70; PULSE 69; RESP 20; TEMP 97.7; O2SAT 100
[2017-10-01] MEDS: SODIUM CHLOR 0.9% 1000 ML INJ 1,000 ML IV SCH ×2 (04:45→14:45)
[2017-10-01] MEDS: LACTATED RINGER'S 1000 ML INJ 1,000 ML IV SCH ×2 (05:59→15:59)
--- NOTE | 2017-10-01 07:33 | PD.ORT.PN ---
Subjective Subjective Remarks Je is awake and alert. He is anxious. Pain control Objective Vitals Vital Signs Date Time Temp Pulse Resp B/P (MAP) Pulse Ox O2 Delivery O2 Flow Rate FiO2 10/01/17 04:00 97.7 69 20 136/70 (92) 100 10/01/17 00:00 97.5 76 20 134/70 (91) 100 09/30/17 20:00 97.9 64 21 130/71 (90) 97 09/30/17 16:05 97.7 63 18 121/72 (88) 98 09/30/17 12:32 97.7 62 18 122/57 (78) 98 09/30/17 08:25 97.8 61 18 130/72 (91) 97 I/O 09/30/17 09/30/17 09/30/17 10/01/17 10/01/17 10/01/17 07:00 15:00 23:00 07:00 15:00 23:00 Intake Total 100 ml 100 ml Output Total 2650 ml 740 ml 300 ml Balance -2650 ml -740 ml -200 ml 100 ml IV Total 100 ml 100 ml Output Urine Total 1650 ml 740 ml 300 ml Drainage Total 1000 ml # Bowel Movements 0 Result Diagram: 09/29/17 0617 09/27/17 0413 Objective Remarks Right lower extremity: Clean dry dressings intact. Wound VAC in place. VAC seal and Veriflo working appropriately Assessment & Plan Assessment and Plan 1) Right Distal Tibia/Fibula Fx s/p ORIF with wound dehiscence and infection POD 2 -NWB -maintain VAC and dressing -Consult infectious disease 2) plan on surgery Monday or Monday for irrigation and debridement with VAC dressing change Timur Martinez MD Oct 01, 2017 07:33
[2017-10-01] MEDS: SODIUM CHLORIDE 0.9% FLUSH 10 ML FLUSH IV FLUSH SCH ×2 (08:38→19:09)
[2017-10-01] MEDS: LACTOBACILLUS ACIDOPHILUS 1 GM PACKET PO SCH ×3 (08:39→16:37)
[2017-10-01] MEDS: DOCUSATE SODIUM 50 MG/SENNA 8.6 MG TAB PO SCH ×2 (09:00→19:09)
--- NOTE | 2017-10-01 11:07 | HHI.PR ---
Subjective Remarks Patient reports pain is ok. Frustrated because repeat debridement is scheduled for tomorrow. Frustrated that he is not healing faster. Objective Vitals Vital Signs Date Time Temp Pulse Resp B/P (MAP) Pulse Ox O2 Delivery O2 Flow Rate FiO2 10/01/17 04:00 97.7 69 20 136/70 (92) 100 10/01/17 00:00 97.5 76 20 134/70 (91) 100 09/30/17 20:00 97.9 64 21 130/71 (90) 97 09/30/17 16:05 97.7 63 18 121/72 (88) 98 09/30/17 12:32 97.7 62 18 122/57 (78) 98 I/O 09/30/17 09/30/17 09/30/17 10/01/17 10/01/17 10/01/17 07:00 15:00 23:00 07:00 15:00 23:00 Intake Total 100 ml 100 ml Output Total 2650 ml 740 ml 300 ml 420 ml Balance -2650 ml -740 ml -200 ml 100 ml -420 ml IV Total 100 ml 100 ml Output Urine Total 1650 ml 740 ml 300 ml 420 ml Drainage Total 1000 ml # Bowel Movements 0 Result Diagram: 09/29/17 0617 09/27/17 0413 Objective Remarks GENERAL: This is a well-nourished, well-developed patient, in no apparent distress. CARDIOVASCULAR: Normal rate and regular rhythm without murmurs, gallops, or rubs. RESPIRATORY: Good respiratory efforts. Breath sounds equal and clear to auscultation bilaterally. GASTROINTESTINAL: Abdomen soft, non-tender, non-distended. Normal active bowel sounds MUSCULOSKELETAL: Right lower extremity dressing appear intact. There is a wound VAC in place NEURO: Alert & Oriented x4 to person, place, time, situation. Moves all ext x4 PSYCH: Appropriate mood and affect. Procedures Irrigation and debridement of right ankle and fibula, application of wound VAC dressing A/P Assessment and Plan 42-year-old male with: Right Distal Tibia/Fibula Fx s/p ORIF with wound dehiscence and infection: Orthopedic surgery consult appreciated. Wound culture growing staph. S/p irrigation and debridement of right ankle and fibula, application of wound VAC dressing 09/28. - pain control with a bowel regimen. - rehab efforts. - IS. -Infectious disease following. Cultures growing staph aureus. Switched to Oxacillin. Will need about 4 weeks of IV antibiotics. Patient is aware. He inquired about amputation related to try to treat the infection. Advised him to continue with the recommended treatment. - Repeat debridement scheduled for tomorrow Anemia Mild. - follow CBC. PPx: When ok with surgery Robin Chavarria MD Oct 01, 2017 11:07
[2017-10-01 20:00] VITALS: BP 129/81; PULSE 63; RESP 16; TEMP 98.1; O2SAT 99
[2017-10-02] VITALS: BP 122/72; PULSE 59; RESP 16; TEMP 97.6; O2SAT 98
[2017-10-02] MEDS: OXACILLIN INJ 2 GM in SODIUM CHLORIDE 0.9% INJ 100 ML IV SCH ×5 (01:30→21:36)
[2017-10-02] MEDS: oxyCODONE/ACETAMINOPHEN 10 MG/325 MG TAB PO PRN ×5 (01:31→22:52)
[2017-10-02] MEDS: SODIUM CHLOR 0.9% 1000 ML INJ 1,000 ML IV SCH ×4 (01:35→20:45)
[2017-10-02] MEDS: LACTATED RINGER'S 1000 ML INJ 1,000 ML IV SCH ×3 (01:59→21:56)
[2017-10-02] MEDS ORDERED: VANCOMYCIN HCL 1000 MG VIAL ONE (06:51)
[2017-10-02] MEDS ORDERED: GENTAMICIN SULFATE 80 MG/2 ML VIAL ONE (06:52)
[2017-10-02] MEDS ORDERED: SODIUM CHLOR 0.9% 250 ML INJ 250 ML ONE (06:52)
[2017-10-02] MEDS ORDERED: ceFAZolin INJ 1,000 MG VIAL ONE (06:52)
[2017-10-02] MEDS ORDERED: ACETAMINOPHEN 1000 MG/100 ML 100 ML IV ONE (07:09)
[2017-10-02 08:00] VITALS: BP 127/73; PULSE 68; RESP 18; TEMP 97.4; O2SAT 100
[2017-10-02] MEDS ORDERED: Post-op Orders (for Pharmacy) XX ONE (08:30)
--- NOTE | 2017-10-02 08:35 | PD.OP ---
cc: Timur Goodrich MD Operative Report Date of Surgery: Oct 02, 2017 Preoperative Diagnosis: Open wound right ankle Postoperative Diagnosis: Procedure: Irrigation and debridement right ankle, fibula, and tibia Closure of right ankle open wound Anesthesia: General Surgeon: Timur Goodrich Health Unit Clerk(s): CARLTON Leary PA-C The surgical procedure was assisted by my physician therapeutic assistant. My P.A. presence was necessary throughout this case for the manipulation and positioning of the surgical extremity. My P.A. was assisting me throughout the duration of this procedure. The skill set of a physician therapeutic assistant was medically necessary to complete this procedure. During the surgical case the surgical first assistant was working at the back table and the physician therapeutic assistant was directly assisting me. Operation and Findings: Je returned to the operating today for treatment of right ankle wound. Informed consent was obtained preoperatively Ray was marked. He is brought operating room. He was given IV sedation and general anesthesia. Timeout procedure was performed. Patient is on scheduled antibiotics. Right leg was prepped with alcohol followed by Hibiclens and draped in usual sterile fashion. Procedure began with debridement of the wound. An excisional debridement was performed. Skin subcu tissue fascia and bone were sharply debrided with curettes and rongoure. The fibula was debrided with curettes. Overall the wound was clean. There was good granulation tissue forming. Next attention was turned towards to wound closure. The skin edges were elevated using a scalpel. The skin edges were mobilized. Skin was now closed with 2-0 nylon and 3-0 nylon. A combination of retention sutures and vertical mattress sutures were utilized. The wound was completely closed with minimal skin tension. Sterile dressings were applied. Patient was awakened and transferred to recovery room in stable condition. Timur Goodrich MD Oct 02, 2017 08:35
[2017-10-02] MEDS ORDERED: MIDAZOLAM HCL 2 MG/2 ML VIAL ONE (08:44)
[2017-10-02] MEDS: DOCUSATE SODIUM 50 MG/SENNA 8.6 MG TAB PO SCH ×2 (09:00→21:00)
[2017-10-02] MEDS ORDERED: DO NOT ADM ANY ANTICOAGULANT DRUGS PRN (09:00)
[2017-10-02] MEDS: LACTOBACILLUS ACIDOPHILUS 1 GM PACKET PO SCH ×3 (09:27→18:00)
[2017-10-02] MEDS: ONDANSETRON HCL 4 MG/2 ML VIAL IVP PRN ×3 (09:27→21:47)
[2017-10-02] MEDS: SODIUM CHLORIDE 0.9% FLUSH 10 ML FLUSH IV FLUSH SCH ×2 (09:28→21:00)
[2017-10-02] MEDS: MORPHINE SULFATE 2 MG/ML SYRINGE IV PUSH PRN ×3 (09:28→21:50)
[2017-10-02 12:00] VITALS: BP 129/78; PULSE 74; RESP 18; TEMP 97.9; O2SAT 99
[2017-10-02] MEDS ORDERED: ePHEDrine/NS 25 MG/5 ML SYRINGE IV ONE (12:00)
[2017-10-02] MEDS ORDERED: PHENYLEPH/NS 1000 MCG/10 ML SYR IV ONE (12:00)
[2017-10-02] MEDS ORDERED: LIDOCAINE HCL 1% PF 5 ML SYRINGE OTHER ONE (12:00)
[2017-10-02] MEDS ORDERED: ONDANSETRON HCL 4 MG/2 ML VIAL IV ONE (12:00)
[2017-10-02] MEDS ORDERED: DEXAMETHASONE SOD PHOS 4 MG/ML VIAL IV ONE (12:00)
[2017-10-02] MEDS ORDERED: PROPOFOL 200 MG/20 ML AMP IV ONE (12:00)
[2017-10-02] MEDS ORDERED: GLYCOPYRROLATE 1 MG/5 ML SYRINGE IV PUSH ONE (12:00)
[2017-10-02] MEDS ORDERED: clonazePAM 0.5 MG TAB PO PRN (13:00)
--- NOTE | 2017-10-02 13:12 | PD.PSY.CON ---
Provisional Diagnosis Admission Date Sep 27, 2017 at 14:11 [place] I. Adjustment disorder with mixed anxiety and depressed mood [place] II. Cluster B traits identified [place] III. No significant medical history History of Present Illness Service Psychiatry Consult Requested By Medical team Reason for Consult Anxiety and depression Primary Care Physician No Primary Care Physician HPI The patient is a 42-year-old man, domiciled alone in [facility], single, unemployed , without no previous psychiatric history, no previous hospitalizations, one suicidal attempt at the age of [age] years old by overdosing, no significant medical history, who was hospitalized due to Right Distal Tibia/Fibula Fx s/p ORIF with wound dehiscence and infection. Orthopedic surgery consult appreciated. Wound culture growing staph. S/p irrigation and debridement of right ankle and fibula, application of wound VAC dressing 09/28. The patient was consulted to psychiatry due to symptoms of depression and anxiety. Psychiatric evaluation the patient at the beginning irritable, oppositional, even verbally hostile. The patient reports that he has been frustrated due to the lack of care of the nurses. He says that is very frustrating for him to see the nurses coming and going, "and many of their do not really care about what they are doing". The patient says that the reason of his frustration and sadness is due to the length of his hospitalization and to the fact that he is going to have to spend a week inside the room. Patient reports that he is very active person, likes to be in control of his life, he do not appreciate to be in close places. He says that he was 10 years in [facility] "and being here, without the control myself, demonstrated by nurses, having others taking care of me and taken decisions for me reminds me a lot my days of [facility]". But, the patient states that he enjoys life, he is looking forward to get better, to get out of the hospital, to restart his life. He reports poor sleep at night, episodic anxiety, he denies hopelessness, denies helplessness, denies worthlessness, denies anhedonia, denies suicidal enemas ideation, he denies visual and auditory hallucinations. Patient denies the use of illegal drugs or alcohol. Review of Systems Constitutional: DENIES: Diaphoretic episodes, Fatigue, Fever, Weight gain, Weight loss, Chills, Dizziness, Change in appetite, Night Sweats Endocrine: DENIES: Heat/cold intolerance, Polydipsia, Polyuria, Polyphagia Eyes: DENIES: Blurred vision, Diplopia, Eye inflammation, Eye pain, Vision loss , Photosensitivity, Double Vision Ears, nose, mouth, throat: DENIES: Tinnitus, Hearing loss, Vertigo, Nasal discharge, Oral lesions, Throat pain, Hoarseness, Ear Pain, Running Nose, Epistaxis, Sinus Pain, Toothache, Odynophagia Respiratory: DENIES: Apneas, Cough, Snoring, Wheezing, Hemoptysis, Sputum production, Shortness of breath Cardiovascular: DENIES: Chest pain, Palpitations, Syncope, Dyspnea on Exertion , PND, Lower Extremity Edema, Orthopnea, Claudication Gastrointestinal: DENIES: Abdominal pain, Black stools, Bloody stools, Constipation, Diarrhea, Nausea, Vomiting, Difficulty Swallowing, Anorexia Genitourinary: DENIES: Sexual dysfunction, Urinary frequency, Urinary incontinence, Urgency, Hematuria, Dysuria, Nocturia, Penile Discharge, Testicular Pain, Testicular Swelling Musculoskeletal: DENIES: Joint pain, Muscle aches, Stiffness, Joint Swelling, Back pain, Neck pain Integumentary: DENIES: Abnormal pigmentation, Nail changes, Pruritus, Rash Hematologic/lymphatic: DENIES: Bruising, Lymphadenopathy Immunologic/allergic: DENIES: Eczema, Urticaria Neurologic: DENIES: Abnormal gait, Headache, Localized weakness, Paresthesias, Seizures, Speech Problems, Tremor, Poor Balance Psychiatric: COMPLAINS OF: Anxiety, DENIES: Confusion, Mood changes, Depression , Hallucinations, Agitation, Suicidal Ideation, Homicidal Ideation, Delusions Past Family Social History Coded Allergies: No Known Allergies (Verified Allergy, Mild, 09/26/17) Discontinued Scripts Rivaroxaban (Xarelto) 10 Mg Tab, 10 MG PO DAILY for Blood Clot Prevention, #14 TAB 0 Refills Prov:Fabricio Billings Jr. 08/10/17 Oxycodone-Acetaminophen (Endocet) 10-325 mg Tab, 1 TAB PO Q4H Y for Pain Management, #60 TAB 0 Refills Prov:Fabricio Billings Jr. 08/10/17 Rivaroxaban (Xarelto) 10 Mg Tab, 10 MG PO DAILY for Blood Clot Prevention for 14 Days, #14 TAB 0 Refills Prov:Alan Sanderson/[employer] PA 07/21/17 Oxycodone-Acetaminophen (Endocet) 10-325 mg Tab, 1 TAB PO Q4H Y for Pain Management, #42 TAB 0 Refills Prov:Alan Sanderson PA/[employer] PA 07/21/17 Bedside Commode (Bedside Commode) 1 Mis Meghan EA JayroXX DIRECTED, #1 Prov:Jasmyne Sims DIRECTOR OF HOME HEALTH SERVICES 07/19/17 Wheelchair Elevated Leg (Wheelchair Elevated Leg) 1 Mis Meghan EA JayroXX DIRECTED , #1 0 Refills Prov:Jasmyne Sims DIRECTOR OF HOME HEALTH SERVICES 07/19/17 Current Medications Medications (Trade) Dose Ordered Sig/[place] Route Start Time Stop Time Status Last Admin (NS Flush) 2 ml UNSCH PRN IV FLUSH 09/26/17 23:00 (NS Flush) 2 ml BID IV FLUSH 09/27/17 09:00 10/02/17 09:28 (Tylenol) 650 mg Q4H PRN PO 09/26/17 23:00 (Zofran Inj) 4 mg Q6H PRN IVP 09/26/17 23:00 10/02/17 09:27 (Narcan Inj) 0.4 mg UNSCH PRN IV PUSH 09/26/17 23:00 (Milk Of Magnesia Liq) 30 ml Q12H PRN PO 09/26/17 23:00 (Senokot) 17.2 mg Q12H PRN PO 09/26/17 23:00 (Dulcolax Supp) 10 mg DAILY PRN RECTAL 09/26/17 23:00 (Lactulose Liq) 30 ml DAILY PRN PO 09/26/17 23:00 (Percocet 5-325 Mg) 1 tab Q4H PRN PO 09/26/17 23:00 (Percocet 10-325 Mg) 1 tab Q4H PRN PO 09/26/17 23:00 10/02/17 12:48 Sodium Chloride 1,000 ml @ 100 mls/hr Q10H IV 09/27/17 00:45 10/02/17 01:35 (Lactinex Pkt) 1 gm TID PO 09/27/17 18:00 10/02/17 12:49 (Jayla-Colace) 1 tab BID PO 09/27/17 21:00 (Morphine Inj) 4 mg Q4H PRN IV PUSH 09/27/17 14:30 10/02/17 09:28 Lactated Ringer's 1,000 ml @ 100 mls/hr Q10H IV 09/28/17 07:59 09/28/17 09:20 Oxacillin Sodium 2 gm/Sodium Chloride 100 ml @ 200 mls/hr Q4H IV 09/29/17 16:00 10/02/17 07:47 ([facility] [place] [facility]) ALL NURSING DEPARTME... UNSCH PRN .XX 10/02/17 09:00 10/03/17 08:59 Family Psych History No family psychiatric history Social History Patient was born and raised in [place], he lives alone in [facility], his single, no kids, unemployed, his highest level of education is college degree Patient's Strengths (min. 2) No prior psychiatric Physical Exam No tremors, no EPS, no stiffness Vital Signs Vital Signs Date Time Temp Pulse Resp B/P (MAP) Pulse Ox O2 Delivery O2 Flow Rate FiO2 10/02/17 08:56 97.6 98 14 105/67 (80) 99 Room Air I/O 10/02/17 10/02/17 10/03/17 08:00 16:00 00:00 Intake Total 500 ml Output Total 10 ml Balance 490 ml Lab Results Date/Time Source Procedure Growth Status 09/26/17 21:10 Blood Peripheral Aerobic Blood Culture - Final NO GROWTH IN 5 DAYS Complete 09/26/17 21:10 Blood Peripheral Anaerobic Blood Culture - Final NO GROWTH IN 5 DAYS Complete 09/28/17 07:48 Wound Ankle Fungal Smear - Final NO FUNGAL ELEMENTS SEEN. Resulted 09/28/17 07:48 Wound Ankle Fungal Culture Pending Resulted Mental Status Examination Appearance: Appropriate Consciousness: Alert Orientation: x4 Motor Activity: Normal gait Speech: Unremarkable Language: Adequate Fund of Knowledge: Adequate Attention and Concentration: Adequate Memory: Unremarkable Mood: Oppositional Affect: Irritable Thought Process & Associations: Intact Thought Content: Appropriate Hallucination Type: None Delusion Type: None Suicidal Ideation: No Suicidal Plan: No Suicidal Intention: No Homicidal Ideation: No Homicidal Plan: No Homicidal Intention: No Insight: Fair Judgment: Impulsive Assessment & Plan Problem List: (1) Adjustment disorder with mixed anxiety and depressed mood ICD Codes: F43.23 - Adjustment disorder with mixed anxiety and depressed mood Assessment & Plan: On psychiatric evaluation today the patient presents irritability, with episodic sadness, anxiety, sense of frustration, poor sleep at night mostly related with the length of hospitalization, increased sense of abandonment mistreatment by staff lack out of control. He denies hopelessness, he denies helplessness, he denies anhedonia, he denies lack of motivation, he denies suicidal enemas ideation, he denies visual and auditory hallucinations. She is quite psychologically minded, future oriented, with clear goals of getting better and being discharged. The patient has visible cluster B trait the fluid 2 weighs between the antisocial and narcissistic spectrum which might make kind of difficult his interaction with staff. He seems to have poor impulse control and coping skills. He does not benefit of psychiatric hospitalization at this moment. I will start trazodone the 100 mg at bedtime and clonazepam 0.5 mg 3 times daily as needed anxiety. Extensive support, psychoeducation and motivation provided. I will follow-up Assessment & Plan Estimated LOS: Selwyn Hadley MD Oct 02, 2017 13:12
--- NOTE | 2017-10-02 14:33 | HHI.PR ---
Subjective Remarks Patient seen postoperatively. He reports feeling okay. Status post repeat washout. Wound VAC has been discontinued. Objective Vitals Vital Signs Date Time Temp Pulse Resp B/P (MAP) Pulse Ox O2 Delivery O2 Flow Rate FiO2 10/02/17 12:00 97.9 74 18 129/78 (95) 99 10/02/17 08:56 97.6 98 14 105/67 (80) 99 Room Air 10/02/17 08:45 100 13 109/68 (82) 99 Room Air 10/02/17 08:37 97.6 92 15 119/81 (94) 99 Room Air 10/02/17 08:00 97.4 68 18 127/73 (91) 100 10/02/17 00:00 97.6 59 16 122/72 (89) 98 10/01/17 20:00 98.1 63 16 129/81 (97) 99 I/O 10/01/17 10/01/17 10/01/17 10/02/17 10/02/17 10/02/17 06:59 14:59 22:59 06:59 14:59 22:59 Intake Total 100 ml 500 ml Output Total 2220 ml 450 ml 10 ml Balance 100 ml -2220 ml -450 ml 490 ml IV Total 100 ml 0 ml Other 500 ml Output Urine Total 2220 ml 450 ml Estimated Blood Loss 10 ml # Voids 1 # Bowel Movements 0 Result Diagram: 09/29/17 0617 Objective Remarks GENERAL: This is a well-nourished, well-developed patient, in no apparent distress. CARDIOVASCULAR: Normal rate and regular rhythm without murmurs, gallops, or rubs. RESPIRATORY: Good respiratory efforts. Breath sounds equal and clear to auscultation bilaterally. GASTROINTESTINAL: Abdomen soft, non-tender, non-distended. Normal active bowel sounds MUSCULOSKELETAL: Right lower extremity dressing appear intact. Neurovascularly intact distally NEURO: Alert & Oriented x4 to person, place, time, situation. Moves all ext x4 PSYCH: Appropriate mood and affect. Procedures Irrigation and debridement of right ankle and fibula, application of wound VAC dressing A/P Assessment and Plan 42-year-old male with: Right Distal Tibia/Fibula Fx s/p ORIF with wound dehiscence and infection: Orthopedic surgery consult appreciated. Wound culture growing staph. S/p irrigation and debridement of right ankle and fibula, application of wound VAC dressing 09/28. - pain control with a bowel regimen. - rehab efforts. - IS. -Infectious disease following. Cultures growing staph aureus. Switched to Oxacillin. Will need about 4 weeks of IV antibiotics. Patient is aware. Advised him to continue with the recommended treatment. -Status post repeat debridement. Wound VAC discontinued. Anemia Mild. - follow CBC. PPx: When ok with surgery Robin Chavarria MD Oct 02, 2017 14:32
[2017-10-02 16:25] VITALS: BP 111/62; PULSE 78; RESP 20; TEMP 98; O2SAT 100
[2017-10-02] MEDS: traZODone HCL 100 MG TAB PO SCH (21:00)
[2017-10-02 21:45] VITALS: BP 117/69; PULSE 79; RESP 18; TEMP 97.9; O2SAT 100
[2017-10-03] VITALS: BP 120/67; PULSE 80; RESP 19; TEMP 98; O2SAT 99
[2017-10-03] MEDS: OXACILLIN INJ 2 GM in SODIUM CHLORIDE 0.9% INJ 100 ML IV SCH ×6 (02:00→20:37)
[2017-10-03 03:30] VITALS: BP 132/85; PULSE 74; RESP 16; TEMP 98.3; O2SAT 99
[2017-10-03] MEDS: oxyCODONE/ACETAMINOPHEN 10 MG/325 MG TAB PO PRN (03:30)
--- NOTE | 2017-10-03 07:15 | PD.ORT.PN ---
Subjective Subjective Remarks POD 1 s/p I&D with wound closure right ankle doing well pain controlled. no changes. Objective Vitals Vital Signs Date Time Temp Pulse Resp B/P (MAP) Pulse Ox O2 Delivery O2 Flow Rate FiO2 10/03/17 00:00 98.0 80 19 120/67 (84) 99 10/02/17 21:45 97.9 79 18 117/69 (85) 100 10/02/17 16:25 98.0 78 20 111/62 (78) 100 10/02/17 12:00 97.9 74 18 129/78 (95) 99 10/02/17 08:56 97.6 98 14 105/67 (80) 99 Room Air 10/02/17 08:45 100 13 109/68 (82) 99 Room Air 10/02/17 08:37 97.6 92 15 119/81 (94) 99 Room Air 10/02/17 08:00 97.4 68 18 127/73 (91) 100 I/O 10/02/17 10/02/17 10/02/17 10/03/17 10/03/17 10/03/17 07:00 15:00 23:00 07:00 15:00 23:00 Intake Total 500 ml Output Total 10 ml Balance 490 ml IV Total 0 ml Other 500 ml Estimated Blood Loss 10 ml # Voids 4 # Bowel Movements 1 Result Diagram: 09/29/17 0617 Objective Remarks Right lower extremity: Clean dry dressings intact. nvi Assessment & Plan Assessment and Plan 1) Right Distal Tibia/Fibula Fx s/p ORIF with wound dehiscence and infection s/ p I&D and wound closure - POD 1 -NWB -daily dressing changes POD 2 -Infectious Dz consult for IV Abx mgmt -will need PICC line and outpt Abx for approx 6-8 weeks due to exposed fibular hardware -plan for DC home and Abx arranged outpt once PICC line placed. -will follow up joey Mccormick or [facility]ITA in 2 weeks Alan Sanderson/First Makayla MOYA October 03, 2017 07:15
[2017-10-03] MEDS: LACTATED RINGER'S 1000 ML INJ 1,000 ML IV SCH ×2 (07:59→17:59)
[2017-10-03 08:00] VITALS: BP 133/71; PULSE 60; RESP 20; TEMP 97.6; O2SAT 100
[2017-10-03] MEDS: LACTOBACILLUS ACIDOPHILUS 1 GM PACKET PO SCH ×3 (10:02→16:52)
[2017-10-03] MEDS: DOCUSATE SODIUM 50 MG/SENNA 8.6 MG TAB PO SCH ×2 (10:03→20:39)
[2017-10-03] MEDS: SODIUM CHLOR 0.9% 1000 ML INJ 1,000 ML IV SCH ×2 (10:09→20:37)
[2017-10-03 12:00] VITALS: BP 124/60; PULSE 78; RESP 20; TEMP 97.8; O2SAT 98
--- NOTE | 2017-10-03 14:18 | HHI.PR ---
Subjective Remarks We had a long discussion about the story leading up to his right ankle infection. He explained that he is part of a [employer] again which requires members to attend certain meetings otherwise consequences could be serious. He has a meeting that he may not be able to get out of that as an [place], [place] this weekend. His right would leave on . I explained that his infection is serious and that I would rather write him for oral antibiotics and to have him leave AMA with no antibiotics at all. Objective Vitals Vital Signs Date Time Temp Pulse Resp B/P (MAP) Pulse Ox O2 Delivery O2 Flow Rate FiO2 10/03/17 12:00 97.8 78 20 124/60 (81) 98 10/03/17 08:00 97.6 60 20 133/71 (91) 100 10/03/17 03:30 98.3 74 16 132/85 (101) 99 10/03/17 00:00 98.0 80 19 120/67 (84) 99 10/02/17 21:45 97.9 79 18 117/69 (85) 100 10/02/17 16:25 98.0 78 20 111/62 (78) 100 I/O 10/02/17 10/02/17 10/02/17 10/03/17 10/03/17 10/03/17 07:00 15:00 23:00 07:00 15:00 23:00 Intake Total 500 ml 1050 ml Output Total 10 ml 1200 ml Balance 490 ml -150 ml Intake Oral 1050 ml IV Total 0 ml Other 500 ml Output Urine Total 1200 ml Estimated Blood Loss 10 ml # Voids 4 # Bowel Movements 1 0 Result Diagram: 09/29/17 0617 Objective Remarks GENERAL: Well-nourished, well-developed patient. SKIN: Warm and dry. HEAD: Normocephalic. EYES: No scleral icterus. No injection or drainage. NECK: Supple, trachea midline. No JVD or lymphadenopathy. CARDIOVASCULAR: Regular rate and rhythm without murmurs, gallops, or rubs. RESPIRATORY: Breath sounds equal bilaterally. No accessory muscle use. GASTROINTESTINAL: Abdomen soft, non-tender, nondistended. EXTREMITIES: Right lower extremity, ankle in a soft splint following surgery toes appear somewhat swollen and mottled NEUROLOGICAL: Awake, alert, and oriented x 3. Non-focal. Procedures Irrigation and debridement of right ankle and fibula, application of wound VAC dressing A/P Problem List: (1) Wound of right ankle ICD Code: S91.001A - Unspecified open wound, right ankle, initial encounter Status: Acute Assessment and Plan Surgical wound dehiscence and infection s/p Right Distal Tibia/Fibula Fx w/ ORIF Patient has a history of poor compliance and self treatment Culture thus far is growing staph, final sensitivities are pending Wound VAC dressing applied September 28 Wound was closed following irrigation and debridement on 10/02/2017 by orthopedics Appreciate orthopedics consultation Appreciate infectious disease h/o Poor compliance w/ treatment Patient has a lot of social issues going on outside of the hospital He states he may feel compelled to leave the hospital early due to multiple obligations He understands the infection could threaten his life I have requested that he informed me prior to leaving A so that I can provide him antibiotics if he chooses to leave despite our best efforts to give him maximum treatment DVT prophylaxis SCDs Problem Qualifiers (1) Wound of right ankle: Qualified Codes: S91.001D - Unspecified open wound, right ankle, subsequent encounter Sherman Méndez MD October 03, 2017 14:18
[2017-10-03] MEDS: IBUPROFEN 800 MG TAB PO SCH ×2 (15:24→22:00)
[2017-10-03 16:00] VITALS: BP 124/64; PULSE 68; RESP 20; TEMP 97.3; O2SAT 99
[2017-10-03 20:00] VITALS: BP 132/76; PULSE 66; RESP 18; TEMP 98.3; O2SAT 98
[2017-10-03] MEDS: traZODone HCL 100 MG TAB PO SCH (20:24)
[2017-10-03] MEDS: SODIUM CHLORIDE 0.9% FLUSH 10 ML FLUSH IV FLUSH SCH (20:39)
[2017-10-03] MEDS ORDERED: GABAPENTIN 300 MG CAP PO SCH (21:00)
[2017-10-04] VITALS: BP 118/69; PULSE 67; RESP 18; TEMP 98; O2SAT 99
[2017-10-04] MEDS: SODIUM CHLOR 0.9% 1000 ML INJ 1,000 ML IV SCH ×2 (02:06→22:24)
[2017-10-04] MEDS: LACTATED RINGER'S 1000 ML INJ 1,000 ML IV SCH ×3 (02:07→22:25)
[2017-10-04] MEDS: OXACILLIN INJ 2 GM in SODIUM CHLORIDE 0.9% INJ 100 ML IV SCH ×7 (06:04→22:55)
[2017-10-04] MEDS: IBUPROFEN 800 MG TAB PO SCH ×3 (06:05→22:55)
[2017-10-04 08:12] VITALS: BP 100/56; PULSE 65; RESP 20; TEMP 97.9; O2SAT 96
[2017-10-04] MEDS: LACTOBACILLUS ACIDOPHILUS 1 GM PACKET PO SCH ×3 (10:02→16:39)
[2017-10-04] MEDS: DOCUSATE SODIUM 50 MG/SENNA 8.6 MG TAB PO SCH ×2 (10:03→21:00)
[2017-10-04 11:53] VITALS: BP 112/67; PULSE 80; RESP 20; TEMP 98; O2SAT 98
--- NOTE | 2017-10-04 15:30 | HHI.PR ---
Subjective Remarks Patient states that he is now planning to stay for inpatient treatment of his foot infection. He says he slept well last night, the ibuprofen has helped as well as the gabapentin. Objective Vitals Vital Signs Date Time Temp Pulse Resp B/P (MAP) Pulse Ox O2 Delivery O2 Flow Rate FiO2 10/04/17 11:53 98.0 80 20 112/67 (82) 98 10/04/17 08:12 97.9 65 20 100/56 (71) 96 10/04/17 00:00 98.0 67 18 118/69 (85) 99 10/03/17 20:00 98.3 66 18 132/76 (94) 98 10/03/17 16:00 97.3 68 20 124/64 (84) 99 I/O 10/03/17 10/03/17 10/03/17 10/04/17 10/04/17 10/04/17 07:00 15:00 23:00 07:00 15:00 23:00 Intake Total 1050 ml 480 ml Output Total 1200 ml 1200 ml 950 ml Balance -150 ml 480 ml -1200 ml -950 ml Intake Oral 1050 ml 480 ml Output Urine Total 1200 ml 1200 ml 950 ml # Voids 4 # Bowel Movements 0 0 0 Objective Remarks GENERAL: Well-nourished, well-developed patient. SKIN: Warm and dry. HEAD: Normocephalic. EYES: No scleral icterus. No injection or drainage. NECK: Supple, trachea midline. No JVD or lymphadenopathy. CARDIOVASCULAR: Regular rate and rhythm without murmurs, gallops, or rubs. RESPIRATORY: Breath sounds equal bilaterally. No accessory muscle use. GASTROINTESTINAL: Abdomen soft, non-tender, nondistended. EXTREMITIES: Right lower extremity, ankle in a soft splint following surgery toes appear somewhat swollen and mottled NEUROLOGICAL: Awake, alert, and oriented x 3. Non-focal. Procedures Irrigation and debridement of right ankle and fibula, application of wound VAC dressing A/P Problem List: (1) Wound of right ankle ICD Code: S91.001A - Unspecified open wound, right ankle, initial encounter Status: Acute Assessment and Plan Surgical wound dehiscence and infection s/p Right Distal Tibia/Fibula Fx w/ ORIF Patient has a history of poor compliance and self treatment Culture thus far is growing staph, final sensitivities are pending Wound VAC dressing applied September 28 Wound was closed following irrigation and debridement on 10/02/2017 by orthopedics Appreciate orthopedics consultation Appreciate infectious disease Neuropathic pain Continue gabapentin for prevention of reflex sympathetic dystrophy Ibuprofen added for anti-inflammatory effect Continue oxycodone as needed, morphine IV for breakthrough h/o Poor compliance w/ treatment Patient has a lot of social issues going on outside of the hospital Patient previously stated he may have to leave the hospital early, he has changed his story and says will be allowed to stay in the hospital DVT prophylaxis SCDs Problem Qualifiers (1) Wound of right ankle: Qualified Codes: S91.001D - Unspecified open wound, right ankle, subsequent encounter Sherman Méndez MD October 04, 2017 15:30
[2017-10-04 16:08] VITALS: BP 105/65; PULSE 86; RESP 20; TEMP 97.8; O2SAT 98
[2017-10-04 19:25] VITALS: BP 115/58; PULSE 83; RESP 12; TEMP 98.9; O2SAT 98
[2017-10-04] MEDS: traZODone HCL 100 MG TAB PO SCH (21:00)
[2017-10-04] MEDS: SODIUM CHLORIDE 0.9% FLUSH 10 ML FLUSH IV FLUSH SCH (21:00)
[2017-10-04] MEDS: GABAPENTIN 300 MG CAP PO SCH (22:52)
[2017-10-05] VITALS: BP 121/69; PULSE 72; RESP 18; TEMP 97.7; O2SAT 100
[2017-10-05] MEDS: OXACILLIN INJ 2 GM in SODIUM CHLORIDE 0.9% INJ 100 ML IV SCH ×6 (02:29→23:07)
[2017-10-05 05:54] VITALS: BP 152/76; PULSE 75; RESP 22; TEMP 97.2; O2SAT 97
[2017-10-05] MEDS: IBUPROFEN 800 MG TAB PO SCH ×3 (06:25→23:15)
[2017-10-05] MEDS: DOCUSATE SODIUM 50 MG/SENNA 8.6 MG TAB PO SCH ×2 (07:50→21:00)
[2017-10-05] MEDS: LACTOBACILLUS ACIDOPHILUS 1 GM PACKET PO SCH ×3 (07:50→16:03)
[2017-10-05] MEDS: SODIUM CHLOR 0.9% 1000 ML INJ 1,000 ML IV SCH ×2 (07:50→16:03)
[2017-10-05] MEDS: SODIUM CHLORIDE 0.9% FLUSH 10 ML FLUSH IV FLUSH SCH ×2 (07:50→23:07)
[2017-10-05] MEDS: LACTATED RINGER'S 1000 ML INJ 1,000 ML IV SCH ×3 (07:50→23:04)
[2017-10-05 08:00] VITALS: BP 120/69; PULSE 69; RESP 18; TEMP 97.9; O2SAT 99
[2017-10-05 12:00] VITALS: BP 130/73; PULSE 72; RESP 18; TEMP 97.8; O2SAT 98
--- NOTE | 2017-10-05 16:28 | HHI.PR ---
Subjective Remarks 42-year-old male with infection of surgical site for right tib-fib fracture. He is in a good mood today, states he has been sleeping well. He would like to know when he is going home. We discussed the option of outpatient infusion clinic. Objective Vitals Vital Signs Date Time Temp Pulse Resp B/P (MAP) Pulse Ox O2 Delivery O2 Flow Rate FiO2 10/05/17 12:32 16 10/05/17 12:00 97.8 72 18 130/73 (92) 98 10/05/17 08:00 97.9 69 18 120/69 (86) 99 10/05/17 00:00 97.7 72 18 121/69 (86) 100 10/04/17 19:25 98.9 83 12 115/58 (77) 98 I/O 10/04/17 10/04/17 10/04/17 10/05/17 10/05/17 10/05/17 07:00 15:00 23:00 07:00 15:00 23:00 Output Total 950 ml Balance -950 ml Output Urine Total 950 ml # Voids 2 # Bowel Movements 0 Objective Remarks GENERAL: Well-nourished, well-developed patient. SKIN: Warm and dry. HEAD: Normocephalic. EYES: No scleral icterus. No injection or drainage. NECK: Supple, trachea midline. No JVD or lymphadenopathy. CARDIOVASCULAR: Regular rate and rhythm without murmurs, gallops, or rubs. RESPIRATORY: Breath sounds equal bilaterally. No accessory muscle use. GASTROINTESTINAL: Abdomen soft, non-tender, nondistended. EXTREMITIES: Right lower extremity, ankle is less swollen, minimal erythema, wounds appear uninfected at this time and surfaces physiologically closed by soft scabs NEUROLOGICAL: Awake, alert, and oriented x 3. Non-focal. Procedures Irrigation and debridement of right ankle and fibula, application of wound VAC dressing A/P Problem List: (1) Wound of right ankle ICD Code: S91.001A - Unspecified open wound, right ankle, initial encounter Status: Acute Assessment and Plan Surgical wound dehiscence and infection s/p Right Distal Tibia/Fibula Fx w/ ORIF Patient has a history of poor compliance and self treatment Culture thus far is growing staph, final sensitivities for September 28 collection are pending Wound VAC dressing applied September 28 Wound was closed following irrigation and debridement on 10/02/2017 by orthopedics Appreciate orthopedics consultation Appreciate infectious disease Neuropathic pain Continue gabapentin for prevention of reflex sympathetic dystrophy Continue oxycodone as needed, morphine IV for breakthrough Continue ibuprofen for anti-inflammation effect h/o Poor compliance w/ treatment Patient has a lot of social issues going on outside of the hospital Patient states he was excused from his obligations and [place], he will be staying here for treatment DVT prophylaxis SCDs Discharge planning Infectious disease reconsulted to assist with infusion clinic orders Problem Qualifiers (1) Wound of right ankle: Qualified Codes: S91.001D - Unspecified open wound, right ankle, subsequent encounter Sherman Méndez MD October 05, 2017 16:28
--- NOTE | 2017-10-05 18:43 | HHI.IDPN ---
Note Infectious Disease Note Patient states that he feels much better. He states that the pain in his right leg is improved. He denies chills. Afebrile. Intraoperative culture staph aureus. Per orthopedics, the fibula hardware was exposed. Post I&D of the right ankle, tibia and fibula. PAST MEDICAL HISTORY: 1. Herniated disk. 2. Fracture of the right clavicle. 3. Right tibia/fibula fracture fixation on July 17, 2017 ALLERGIES: NO KNOWN DRUG ALLERGIES. MEDICATIONS: 1. Vancomycin 2. Morphine sulfate p.r.n. 3. Percocet 10 p.r.n. SOCIAL HISTORY: Positive tobacco use, occasional alcohol use. Denies substance abuse. Objective: Vital Signs Date Time Temp Pulse Resp B/P (MAP) Pulse Ox O2 Delivery O2 Flow Rate FiO2 10/05/17 12:32 16 10/05/17 12:00 97.8 72 18 130/73 (92) 98 10/05/17 08:00 97.9 69 18 120/69 (86) 99 10/05/17 00:00 97.7 72 18 121/69 (86) 100 10/04/17 19:25 98.9 83 12 115/58 (77) 98 PHYSICAL EXAMINATION: GENERAL: No acute distress. Awake and alert. HEENT: The head is atraumatic. Extraocular movements are grossly intact. Pupils reactive to light. No icterus. Oropharynx: No lesions. NECK: Supple without adenopathy or swelling. LUNGS: Clear breath sounds bilaterally. HEART: Regular S1 and S2, without murmurs, rubs or gallops. ABDOMEN: Bowel sounds present. Soft, nontender. EXTREMITIES: The right leg has surgical dressing in place post skin closure. The wound is clean. SKIN: No rash. NEUROLOGIC: No gross focal finding. PSYCHIATRIC: Calm and cooperative. IMPRESSION: Wound infection of the right ankle. Staph aureus methicillin sensitive. The patient is status post open reduction and internal fixation of right tibia/ fibula fracture. RECOMMENDATIONS: Continue the Oxacillin intravenous until November 09, 2017. Orders written. PICC line for antibiotic administration. Case management to arrange for antibiotics for outpatient. Olu Phelan MD October 05, 2017 18:43
--- NOTE | 2017-10-05 18:51 | HHI.FF ---
Infusion Therapy Patient Information Patient Weight 105 kg Diagnosis: Coded Allergies: No Known Allergies (Verified Allergy, Mild, 09/26/17) Administer Medication Oxacillin 12 grams IV IV continuous infusion over 24 hours. Stop Treatment: Nov 09, 2017 Additional Information Venous access: PICC Line Additional Instructions [x] Peripheral flush and dressing changes per protocol [x] Implanted port and central service line layer: * Implanted port: 10 ml Normal Saline followed by 5 ml Heparin 100 units/ml Heparin flush after each use and monthly to maintain. [] May leave port accessed during therapy. [] May leave peripheral site accessed for duration of therapy. [x] If patient has SOB or respiratory distress, check oxygen saturation. If less than 90% or clinical signs of respiratory distress, administer oxygen at 2 L/min. via nasal cannula and notify physician. [x] Anaphylaxis/Reaction orders: * Stop infusion. * Keep IV line open with saline flush. * Notify physician. * Monitor vital signs every 15 minutes until symptoms resolve. * Check Oxygen saturation; Oxygen at 2 L/min. via nasal cannula if less than 90% or clinical signs of respiratory distress. * Administer diphenhydramine (Benadryl) 25 mg IV STAT, (unless patient has received as pre-med). May repeat once, if necessary. * Solu-Cortef 250 mg IVP over 30-60 seconds, use 100 mg vials for each dissolution. * Epinephrine (1mg/1 ml) 0.3 mg subcutaneously or IVP now with any signs of respiratory distress. * Check with physician for new additional pre-med orders if patient is re- challenged or re-treated. [x] May remove PICC line when treatment complete, after confirming with Physician. [x] If the patient is admitted to the hospital, the ED, or transferred via [facility] , complete transfer form including medication reconciliation order sheet. Laboratory Tests Weekly Labs: BMP, CBC w/diff Additional Information Fax abnormal labs to Dr Phelan Fax number [phone]. Olu Phelan MD October 05, 2017 18:51
[2017-10-05] MEDS: traZODone HCL 100 MG TAB PO SCH (21:00)
[2017-10-05 21:03] VITALS: BP 134/84; PULSE 81; RESP 18; TEMP 97.8; O2SAT 95
[2017-10-05 23:00] VITALS: BP 129/76; PULSE 93; RESP 18; TEMP 98; O2SAT 100
[2017-10-05] MEDS: GABAPENTIN 300 MG CAP PO SCH (23:07)
[2017-10-06] MEDS: OXACILLIN INJ 2 GM in SODIUM CHLORIDE 0.9% INJ 100 ML IV SCH ×3 (01:50→07:40)
[2017-10-06 04:00] VITALS: BP 134/74; PULSE 88; RESP 18; TEMP 97.9; O2SAT 100
[2017-10-06] MEDS: SODIUM CHLOR 0.9% 1000 ML INJ 1,000 ML IV SCH ×2 (04:45→12:28)
[2017-10-06] MEDS: IBUPROFEN 800 MG TAB PO SCH (05:32)
[2017-10-06 06:27] LABS: HEMATOCRIT 41.3 % (39.0-51.0); HEMOGLOBIN 13.9 GM/DL (13.0-17.0); MEAN CELL VOLUME 88.8 FL (80.0-100.0); MEAN CORPUSCULAR HEMOGLOBIN 29.8 PG (27.0-34.0); MEAN CORPUSCULAR HGB CONC 33.6 % (32.0-36.0); MEAN PLATELET VOLUME 8.3 FL (7.0-11.0); PLATELET COUNT 280 TH/MM3 (150-450); RED BLOOD COUNT 4.65 MIL/MM3 (4.50-5.90); RED CELL DISTRIBUTION WIDTH 14.2 % (11.6-17.2); WHITE BLOOD COUNT 8.4 TH/MM3 (4.0-11.0)
[2017-10-06 06:54] LABS: BICARBONATE 25.7 MEQ/L (21.0-32.0); CALCIUM 9.3 MG/DL (8.5-10.1); CREATININE 0.9 MG/DL (0.60-1.30)
[2017-10-06] MEDS: LACTOBACILLUS ACIDOPHILUS 1 GM PACKET PO SCH (07:40)
[2017-10-06] MEDS: DOCUSATE SODIUM 50 MG/SENNA 8.6 MG TAB PO SCH (07:40)
[2017-10-06] MEDS: SODIUM CHLORIDE 0.9% FLUSH 10 ML FLUSH IV FLUSH SCH (07:40)
--- NOTE | 2017-10-06 07:52 | PD.ORT.PN ---
Subjective Subjective Remarks POD 4 s/p I&D with wound closure right ankle doing well pain controlled. no changes. scheduled for picc line placement today Objective Vitals Vital Signs Date Time Temp Pulse Resp B/P (MAP) Pulse Ox O2 Delivery O2 Flow Rate FiO2 10/06/17 04:00 97.9 88 18 134/74 (94) 100 10/05/17 23:00 98.0 93 18 129/76 (93) 100 10/05/17 21:03 97.8 81 18 134/84 (101) 95 10/05/17 12:32 16 10/05/17 12:00 97.8 72 18 130/73 (92) 98 10/05/17 08:00 97.9 69 18 120/69 (86) 99 I/O 10/05/17 10/05/17 10/05/17 10/06/17 10/06/17 10/06/17 07:00 15:00 23:00 07:00 15:00 23:00 # Voids 2 5 Result Diagram: 10/06/17 0435 10/06/17 0435 Objective Remarks Right lower extremity: Clean dry dressings intact. nvi. bandages removed. wound visualized. healing well. 2 small areas of slight dehissence. no drainage. medial wound with solid granulation tissue and skin edges healing Assessment & Plan Assessment and Plan 1) Right Distal Tibia/Fibula Fx s/p ORIF with wound dehiscence and infection s/ p I&D and wound closure - POD 4 -NWB -daily dressing changes -Infectious Dz consult for IV Abx mgmt -will need PICC line and outpt Abx for approx 6-8 weeks due to exposed fibular hardware -plan for DC home and Abx arranged outpt once PICC line placed. -will follow up joey Mccormick or NITA in 2 weeks Alan Sanderson/First Makayla MOYA October 06, 2017 07:52
[2017-10-06 08:00] VITALS: BP 140/80; PULSE 86; RESP 18; TEMP 97.7; O2SAT 100
[2017-10-06] MEDS ORDERED: NEUR300C PO (08:43)
[2017-10-06] MEDS ORDERED: OXYC1TAB63 PO (08:43)
[2017-10-06] MEDS ORDERED: IBUP1TAB7 PO (08:43)
--- NOTE | 2017-10-06 08:52 | HHI.DS ---
Discharge Summary Admission Date Sep 27, 2017 at 14:11 Discharge Date: October 06, 2017 Admitting Diagnosis Right ankle wound (1) Wound of right ankle ICD Code: S91.001A - Unspecified open wound, right ankle, initial encounter Status: Acute Procedures Irrigation and debridement of right ankle and fibula, application of wound VAC dressing Brief History - From Admission 42-year-old male status post ORIF of the right tibia/fibula on 08/09/[address] Martinez complicated by wound dehiscence presents to the emergency department from Dr. Martinez's office today for further treatment of his wound dehiscence. The patient reports severe pain in his right lateral ankle. He denies any chest pain or shortness of breath. No abdominal pain. No nausea/vomiting/ diarrhea. No fatigue/weakness. No fevers/chills. CBC/BMP: 10/06/17 0435 10/06/17 0435 Significant Findings Laboratory Tests Test 10/06/17 04:35 PE at Discharge GENERAL: Well-nourished, well-developed patient. SKIN: Warm and dry. HEAD: Normocephalic. EYES: No scleral icterus. No injection or drainage. NECK: Supple, trachea midline. No JVD or lymphadenopathy. CARDIOVASCULAR: Regular rate and rhythm without murmurs, gallops, or rubs. RESPIRATORY: Breath sounds equal bilaterally. No accessory muscle use. GASTROINTESTINAL: Abdomen soft, non-tender, nondistended. EXTREMITIES: Right lower extremity, ankle is less swollen, minimal erythema, wounds appear uninfected at this time and surfaces physiologically closed by soft scabs NEUROLOGICAL: Awake, alert, and oriented x 3. Non-focal. Hospital Course 42-year-old male with a complex fracture of his tib-fib last July repaired by Dr. Martinez. Patient has had a complex recovery related to poor follow-up and self treatment as well as simple chance. He developed an infection of his bilateral right ankle surgical wounds and had wound dehiscence. The wound failed to close with wound VAC. He attempted treatment at home but the ankle became too swollen to manage and after follow-up with his orthopedist outpatient he was sent to the ER for antibiotic treatment. He has been receiving oxacillin 4 times a day IV. She underwent irrigation and debridement with wound closure with orthopedics during his stay. The foot is much less swollen less red. Circulation appears healthy and patient is interested in converting his IV therapy to outpatient. He will be receiving oxacillin over a 24 hour infusion daily until November 09 according to infectious disease recommendations. Recommended he follow-up with his orthopedic surgeon during this timeframe. Pt Condition on Discharge: Good Discharge Disposition: Discharge Home Discharge Time: <= 30 minutes Discharge Instructions DIET: Follow Instructions for: As Tolerated, No Restrictions Activities you can perform: Partial Weight Bearing Sherman Méndez MD October 06, 2017 08:52
[2017-10-06] MEDS: LACTATED RINGER'S 1000 ML INJ 1,000 ML IV SCH (12:28)
== END 2017-10-06 13:06 | disposition home or self-care (01) | DRG 493 ==
LOC: NEPC 20:08 → NEDA 22:10 → NEPFCDU 09-27 00:16 → OBSVTOIN 09-27 14:11 → N07B 09-28 09:05 → N05B 09-28 10:09
PROVIDERS: ADMIT Family Medicine; ATTEND Family Medicine
PROC: 0QBG0ZZ Excision of Right Tibia, Open Approach (ICD-10-PCS; 2017-09-28)
PROC: 0QBJ0ZZ Excision of Right Fibula, Open Approach (ICD-10-PCS; principal; 2017-09-28 07:22)
PROC: 0QBJ0ZZ Excision of Right Fibula, Open Approach (ICD-10-PCS; 2017-10-02)
PROC: 0QBG0ZZ Excision of Right Tibia, Open Approach (ICD-10-PCS; 2017-10-02)
PROC: 0YQHXZZ Repair Right Lower Leg, External Approach (ICD-10-PCS; 2017-10-02)
DX: T84.624A Infection and inflammatory reaction due to internal fixation device of right fibula, initial encounter (principal); T81.32XA Disruption of internal operation (surgical) wound, not elsewhere classified, initial encounter; T84.622A Infection and inflammatory reaction due to internal fixation device of right tibia, initial encounter; F43.23 Adjustment disorder with mixed anxiety and depressed mood; B95.61 Methicillin susceptible Staphylococcus aureus infection as the cause of diseases classified elsewhere; D64.9 Anemia, unspecified; F17.200 Nicotine dependence, unspecified, uncomplicated; S82.201G Unspecified fracture of shaft of right tibia, subsequent encounter for closed fracture with delayed healing; S82.401G Unspecified fracture of shaft of right fibula, subsequent encounter for closed fracture with delayed healing
CPT/HCPCS: 80048; 83605; 85025; 85027; 85610; 85730; 86403; 87015; 87040; 87070; 87102; 87116; 87147; 87176; 87186; 87205; 87206; 94150; G8987-GP; G8988-GP; J0131; J0690; J1100; J1580; J1885; J2175; J2250; J2270; J2370; J2405; J2700; J2710; J3010; J3370; J7030; J7050; J7120

== ENCOUNTER 2017-10-31 11:44 | Emergency (ER) | payer OTHER ==
[~2017-10-31] VITALS: Ht 203.2 cm; Wt 100.0 kg
[~2017-10-31 11:44] MED LIST changes: -BEDSIDE COMMODE1 MI1; -ENDO10TA8 PO; +IBUP1TAB7 PO; +NEUR300C PO; +OXYC1TAB63 PO; -WHEEMIS3; -XARE10TA PO; +[UNRECOGNIZED DRUG - CODE] IV
[2017-10-31 12:44] VITALS: BP 122/65; PULSE 72; RESP 18; TEMP 97.4; O2SAT 98
--- NOTE | 2017-10-31 13:18 | PD ---
HPI Chief Complaint: Injury Time Seen by Provider: 12:53 Travel History International Travel<30 days: No Contact w/Intl Traveler<30days: No Traveled to known affect area: No History of Present Illness HPI 42-year-old male presents to the emergency department for evaluation of right ankle pain. Patient had ORIF of the right tibia/fibula on August 09, [address] Martinez which was then complicated by wound dehiscence. He was admitted to the hospital from September 27, 2017 to October 06, 2017. He was discharged with a right PICC line on oxacillin. He states that one week ago, he pulled his PICC line out and stopped his antibiotics because the "CDC states antibiotics should be given for 4 weeks". According to previous chart, patient was to receive antibiotics until November 09. Patient reports 10/10 right ankle pain without radiation. Pain is worse with ambulation, slightly relieved with keeping the ankle still. He states he recently started walking on his ankle again. He has never followed up with Dr. Martinez in his office. Patient reports the wound has not changed much since being discharged. He still has sutures in place. He is not currently on any medications. Moderate severity. PFSH Past Medical History Arthritis: Yes (HAND) Blood Disorders: No Cancer: No Cardiovascular Problems: No Diabetes: No Diminished Hearing: No Endocrine: No Genitourinary: No Hepatitis: No Hiatal Hernia: No Immune Disorder: No Implanted Vascular Access Dvce: Yes Musculoskeletal: Yes (RIGHT LEG FRACTURE, RIGHT CLAVICLE FRACTURE) Neurologic: No Psychiatric: No Reproductive: No Respiratory: No Immunizations Current: Yes Thyroid Disease: No Past Surgical History AICD: No Cardiac Surgery: No Ear Surgery: No Endocrine Surgery: No Eye Surgery: No Genitourinary Surgery: No Joint Replacement: No Oral Surgery: No Pacemaker: No Thoracic Surgery: No Other Surgery: Yes Social History Alcohol Use: Yes (occasionally) Tobacco Use: Yes (1ppd) Substance Use: No Allergies-Medications (Allergen,Severity, Reaction): Coded Allergies: No Known Allergies (Verified Allergy, Mild, 10/31/17) Reported Meds & Prescriptions Reported Meds & Active Scripts Active Review of Systems Except as stated in HPI: all other systems reviewed are Neg Physical Exam Narrative GENERAL: Well-nourished, well-developed male patient, afebrile. SKIN: Focused skin assessment warm/dry. Patient has dehisced incision to right lateral ankle with surrounding erythema, mild drainage. HEAD: Normocephalic. Atraumatic. EYES: No scleral icterus. No injection or drainage. NECK: Supple, trachea midline. No JVD or lymphadenopathy. CARDIOVASCULAR: Regular rate and rhythm without murmurs, gallops, or rubs. Right pedal pulse is 2+. RESPIRATORY: Breath sounds equal bilaterally. No accessory muscle use. Lung sounds are clear to auscultation. GASTROINTESTINAL: Abdomen soft, non-tender, nondistended. MUSCULOSKELETAL: No cyanosis. Right ankle is swollen with dehisced incision and some erythema surrounding the incision site. BACK: Nontender without obvious deformity. No CVA tenderness. Data Data Last Documented VS Vital Signs Date Time Temp Pulse Resp B/P (MAP) Pulse Ox O2 Delivery O2 Flow Rate FiO2 10/31/17 13:01 Room Air 10/31/17 12:44 97.4 72 18 122/65 (84) 98 Orders Orders Complete Blood Count With Diff (10/31/17 13:07) Basic Metabolic Panel (Bmp) (10/31/17 13:07) Tibia/Fibula (Ap/Lat) (10/31/17 ) Wound Culture And Gram Stain (10/31/17 13:07) Labs Laboratory Tests Test 10/31/17 13:25 White Blood Count 7.1 TH/MM3 Red Blood Count 4.80 MIL/MM3 Hemoglobin 14.2 GM/DL Hematocrit 42.5 % Mean Corpuscular Volume 88.5 FL Mean Corpuscular Hemoglobin 29.6 PG Mean Corpuscular Hemoglobin Concent 33.5 % Red Cell Distribution Width 14.9 % Platelet Count 256 TH/MM3 Mean Platelet Volume 8.5 FL Neutrophils (%) (Auto) 51.6 % Lymphocytes (%) (Auto) 32.1 % Monocytes (%) (Auto) 11.9 % Eosinophils (%) (Auto) 3.0 % Basophils (%) (Auto) 1.4 % Neutrophils # (Auto) 3.6 TH/MM3 Lymphocytes # (Auto) 2.3 TH/MM3 Monocytes # (Auto) 0.8 TH/MM3 Eosinophils # (Auto) 0.2 TH/MM3 Basophils # (Auto) 0.1 TH/MM3 CBC Comment DIFF FINAL Differential Comment Blood Urea Nitrogen 9 MG/DL Creatinine 0.93 MG/DL Random Glucose 94 MG/DL Calcium Level 8.9 MG/DL Sodium Level 140 MEQ/L Potassium Level 4.2 MEQ/L Chloride Level 104 MEQ/L Carbon Dioxide Level 29.0 MEQ/L Anion Gap 7 MEQ/L Estimat Glomerular Filtration Rate 89 ML/MIN MDM Medical Decision Making Medical Screen Exam Complete: Yes Emergency Medical Condition: Yes Medical Record Reviewed: Yes Interpretation(s) Last Impressions Tibia/Fibula X-Ray 10/31/17 0000 Signed Impressions: CONCLUSION: Fracture lines remain visualized in the distal tibia and fibula with hardware i n place. The hardware demonstrates no finding to indicate failure or loosening. The displaced butterfly fragment associated with the distal tibia fracture dem onstrates stable to mildly increased displacement. Differential Diagnosis right ankle wound vs. cellulitis vs. osteomyelitis vs. noncompliance Narrative Course 42 year old male presents to the emergency department for evaluation of right ankle wound. Patient pulled his PICC line out and stopped his antibiotics 1 week ago. He has not followed up. CBC, BMP, wound culture are ordered and pending. X-ray of the right tibia/fibula is ordered and pending. CBC is unremarkable. BMP is unremarkable. X-ray of the right tibia/fibula shows fracture lines remain visualized in the distal tibia and fibula with hardware in place. The hardware demonstrates no finding to indicate failure or loosening. The displaced butterfly fragment associated with the distal tibia fracture demonstrates stable to mildly increased displacement. I discussed the case with my attending physician, Dr. Vásquez, who agrees with plan and disposition. Patient will be discharged on oral Bactrim. He is strongly encouraged to follow -up with Dr. Martinez, his surgeon. He verbalizes agreement and understanding that this. He is to return here for any worsening symptoms. Diagnosis Primary Impression: Wound of right ankle Qualified Codes: S91.001A - Unspecified open wound, right ankle, initial encounter Referrals: Timur Martinez MD call for appointment Patient Instructions: Acute Wound Care (DC), General Instructions Additional Instructions: Take antibiotic as directed until gone. This is free at [facility]. Monitor closely. Follow-up with Dr. Martinez, orthopedic surgeon. Please call for an appointment. Return to the emergency department for any acute worsening of symptoms. Med/Other Pt SpecificInfo: Prescription(s) given Scripts Sulfamethoxazole-Trimethoprim (Bactrim DS) 800-160 Mg Tab 1 TAB PO BID for Infection, #20 TAB 0 Refills Prov: Ashli Arellano 10/31/17 Disposition: 01 DISCHARGE HOME Condition: Stable Ashli Arellano October 31, 2017 13:18
[2017-10-31 13:57] LABS: AUTOMATED NEUTROPHIL # 3.6 TH/MM3 (1.8-7.7); BASOPHIL # 0.1 TH/MM3 (0-0.2); BASOPHIL % 1.4 % (0.0-2.0); EOSINOPHIL # 0.2 TH/MM3 (0-0.4); HEMATOCRIT 42.5 % (39.0-51.0); HEMOGLOBIN 14.2 GM/DL (13.0-17.0); LYMPH % 32.1 % (9.0-44.0); LYMPHOCYTE # 2.3 TH/MM3 (1.0-4.8); MEAN CELL VOLUME 88.5 FL (80.0-100.0); MEAN CORPUSCULAR HEMOGLOBIN 29.6 PG (27.0-34.0); MEAN CORPUSCULAR HGB CONC 33.5 % (32.0-36.0); MEAN PLATELET VOLUME 8.5 FL (7.0-11.0); MONO % 11.9 % (0.0-8.0); MONOCYTE # 0.8 TH/MM3 (0-0.9); NEUT % 51.6 % (16.0-70.0); PLATELET COUNT 256 TH/MM3 (150-450); RED CELL DISTRIBUTION WIDTH 14.9 % (11.6-17.2); WHITE BLOOD COUNT 7.1 TH/MM3 (4.0-11.0)
[2017-10-31 14:16] LABS: CALCIUM 8.9 MG/DL (8.5-10.1); CREATININE 0.93 MG/DL (0.60-1.30)
--- NOTE | 2017-10-31 14:32 | RADRPT ---
EXAM DATE: 10/31/2017 1:45 PM EDT AGE/SEX: 42 years / Male INDICATIONS: Right distal tibia/fibula pain after fall. ORIF on August. CLINICAL DATA: This is the patient's initial encounter. Patient reports that signs and symptoms have been present for 2 days and indicates a pain score of 10/10. MEDICAL/SURGICAL HISTORY: None. . Right distal tibia/fibula ORIF. COMPARISON: [facility], TIBIA/FIBULA RIGHT (AP/LAT), 08/09/2017. . FINDINGS: 4 views of the right leg demonstrate a lateral fibular sideplate with multiple interlocking screws an d a lateral distal tibial side plate with multiple interlocking screws. Fracture lines remain visuali zed. There is a mildly displaced butterfly fragment associated with the distal tibia fracture. The de gree of displacement is similar to slightly increased from the prior intraoperative study. There is b ridging ossification of the superior aspect of the butterfly fragment. Hardware demonstrates no findi ng to indicate failure or loosening. Lucency in the mid tibia is consistent with prior pin tracks. No soft tissue abnormality is identified. CONCLUSION: Fracture lines remain visualized in the distal tibia and fibula with hardware in place. The hardware demonstrates no finding to indicate failure or loosening. The displaced butterfly fragment associated with the distal tibia fracture demonstrates stable to mildly increased displacement. Electronically signed by: Kalin Hsieh MD 10/31/2017 2:30 PM EDT
[2017-10-31] MEDS ORDERED: BACT800T5 PO (14:43)
== END 2017-10-31 15:20 | disposition home or self-care (01) ==
LOC: NEPC 11:44
DX: T81.30XA Disruption of wound, unspecified, initial encounter (principal); F17.200 Nicotine dependence, unspecified, uncomplicated
CPT/HCPCS: 73590; 80048; 85025; 86403; 87070; 87077; 87186; 99283

== ENCOUNTER 2017-11-22 05:24 | Inpatient (IN) | payer OTHER ==
[~2017-11-22] VITALS: Ht 203.2 cm; Wt 92.9 kg
[~2017-11-22 05:24] MED LIST changes: +BACT800T5 PO; -IBUP1TAB7 PO; -NEUR300C PO; -OXYC1TAB63 PO; -[UNRECOGNIZED DRUG - CODE] IV
[2017-11-22] MEDS ORDERED: SODIUM CHLORID 0.9% 500 ML IV PRN (06:00)
[2017-11-22] MEDS ORDERED: METOPROLOL TARTRATE 25 MG TAB PO PRN (06:00)
[2017-11-22] MEDS ORDERED: VANCOMYCIN 1 GM/200 ML PREMIX IV SCH (06:00)
[2017-11-22] MEDS ORDERED: POVIDONE IODINE 5% (ANTISEPSIS KIT) 4 APPLICATIONS EACH NARE PRN (06:00)
[2017-11-22] MEDS ORDERED: LACTATED RINGER'S 1000 ML IV PRN (06:00)
[2017-11-22] MEDS ORDERED: CHLORHEXIDINE GLUCONATE 2 % 1 PACK (2 CLOTHS) TOPICAL PRN (06:00)
[2017-11-22] MEDS ORDERED: ceFAZolin 2 GM PREMIX 50 ML IV SCH (06:00)
[2017-11-22] MEDS ORDERED: CHLORHEXIDINE GLUCONATE 4% SOLN 120 ML BTL TOPICAL SCH (06:00)
[2017-11-22] MEDS ORDERED: MORPHINE SULFATE 4 MG/ML INJ ONE (06:47)
[2017-11-22] MEDS ORDERED: ONDANSETRON HCL 4 MG/2 ML VIAL ONE (06:50)
[2017-11-22] MEDS ORDERED: BUPIVACAINE/EPINEPHRINE 0.25% PF 10 ML VIAL ONE (07:06)
[2017-11-22] MEDS ORDERED: GENTAMICIN SULFATE 80 MG/2 ML VIAL ONE (07:07)
[2017-11-22] MEDS ORDERED: GABA300C5 PO (08:22)
[2017-11-22] MEDS ORDERED: HYDR-3583 PO (08:22)
--- NOTE | 2017-11-22 09:36 | PD.OP ---
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 My P.A. presence was necessary throughout this case for the manipulation and positioning of the surgical extremity. My P.A. was assisting me throughout the duration of this procedure. The skill set of a physician assistant inventory manager was medically necessary to complete this procedure. During the surgical case the rn neurosurgical was working at the back table and the physician assistant inventory manager was directly assisting me. Operation and Findings: Je is well-known to me from previous treatment of a right distal tibia and fibular fractures. He was initially treated with external fixation followed by staged open reduction internal fixation. Patient was completely noncompliant with postoperative instructions. He continued to smoke. He was full weightbearing on his leg at times despite instructions to be nonweightbearing. He cut off his own cast. He separately developed wound infection. He developed a nonunion and eventually had failure of hardware secondary to noncompliance with weightbearing. I had a lengthy discussion with patient preoperatively. I discussed with him that his foot and ankle were likely salvageable but would likely require multiple surgeries. He stated that he has chronic pain in his foot and ankle from prior injuries. He did not wish to undergo multiple surgeries. He was adamant about proceeding with below-knee amputation and did not want any further attempts at limb salvage. I discussed with him phantom pain. I also discussed with him the need to stop smoking to allow this wound to heal. He understands that it will be at least 3 months before he can be fitted for prosthesis. Informed consent was obtained preoperatively and operative site was marked. Patient was brought to the OR and placed on the OR table. IV sedation and GETA were administered by anesthesia and IV antibiotics were given. The right leg was prepped with alcohol, followed by Hibiclens and draped in the usual sterile fashion. Time out procedure was performed. The procedure began with a standard incision for below-knee amputation. A long posterior flap was maintained. The subcutaneous tissue was dissected with Bovie. The tibia and fibula were now exposed and the anterior compartment was incised. At this point, the soft tissue was retracted. The tibia was cut with an oscillating saw. The fibula was now cut 1 cm shorter than the tibia. At this point, the tourniquet was inflated. The posterior flap was now incised sharply. The foot was now removed from the field. At this point, attention was turned to hemostasis. The anterior and posterior tibial vessels were identified. An anterior tibial and posterior tibial artery and vein were now ligated with silk suture ties. The peroneal nerve and posterior tibial nerve were identified. The nerve sheath was injected with a 0.5% Marcaine with epinephrine for pain relief. The nerve was transected proximal to the tibial cut. At this point, the deep posterior compartment was excised. The anterior compartment, lateral compartment, and deep posterior compartments were all excised at the level of the tibia cut. The gastroc and soleus muscles were left intact. The edges of the bone were smoothed with a rasp. The tourniquet was released and hemostasis was confirmed. A drain was placed deep. The gastrocsoleus fascia was now sutured to the anterior tibial fascia with #1 Vicryl. The subcutaneous tissues were closed with 3-0 Vicryl and skin was closed with 3-0 nylon. Sterile dressings were applied and CKS was applied. The patient was awakened and transferred to recovery in stable condition. Needle and sponge counts were correct. Timur Goodrich MD Nov 22, 2017 09:36
[2017-11-22] MEDS ORDERED: *morphine SULFATE 8 MG/ML PERIprocedure ONLY ONE (10:03)
[2017-11-22] MEDS ORDERED: MIDAZOLAM HCL 2 MG/2 ML VIAL ONE (10:03)
[2017-11-22] MEDS ORDERED: *morphine SULFATE 10 MG/ML PERIprocedure ONLY ONE ×2 (10:11→10:17)
[2017-11-22] MEDS ORDERED: HYDROmorphone HCL PF 2 MG/ML VIAL ONE ×4 (10:19→11:00)
[2017-11-22] MEDS ORDERED: BUPIVACAINE HCL PF 0.5% 30 ML VIAL ONE (10:23)
[2017-11-22] MEDS ORDERED: DO NOT ADM ANY ANTICOAGULANT DRUGS PRN (10:30)
[2017-11-22] MEDS: ACETAMINOPHEN/HYDROcodone 325 MG/10 MG TAB PO PRN ×4 (11:15→22:10)
[2017-11-22] MEDS: GABAPENTIN 300 MG CAP PO SCH ×2 (11:43→17:35)
[2017-11-22] MEDS: ONDANSETRON ODT 4 MG TAB SL PRN ×3 (11:44→19:49)
[2017-11-22] MEDS ORDERED: GLYCOPYRROLATE 1 MG/5 ML SYRINGE IV PUSH ONE (12:00)
[2017-11-22] MEDS ORDERED: NEOSTIGMINE 5 MG/5 ML SYRINGE IV PUSH ONE (12:00)
[2017-11-22] MEDS ORDERED: KETOROLAC TROMETHAMINE 30 MG/ML (IVP) VIAL IV PUSH ONE (12:00)
[2017-11-22] MEDS ORDERED: LIDOCAINE HCL 1% PF 5 ML SYRINGE OTHER ONE (12:00)
[2017-11-22] MEDS ORDERED: ROCURONIUM INJ 50 MG/5 ML SYRINGE IV PUSH ONE (12:00)
[2017-11-22] MEDS ORDERED: PROPOFOL 200 MG/20 ML AMP IV ONE (12:00)
[2017-11-22 12:34] VITALS: BP 117/55; PULSE 70; RESP 20; TEMP 97.2; O2SAT 97
[2017-11-22 16:28] VITALS: BP 102/64; PULSE 92; RESP 20; TEMP 97.2; O2SAT 96
[2017-11-22] MEDS: diphenhydrAMINE HCL 25 MG CAP PO PRN (17:36)
[2017-11-22] MEDS: ceFAZolin 2 GM PREMIX 50 ML IV SCH (17:36)
[2017-11-22] MEDS: MORPHINE SULFATE 4 MG/ML INJ IV PUSH PRN (17:37)
[2017-11-22] MEDS: ONDANSETRON HCL 4 MG/2 ML VIAL IV PUSH PRN (22:09)
[2017-11-23] VITALS: BP 122/61; PULSE 51; RESP 18; TEMP 97.7; O2SAT 98
[2017-11-23] MEDS: ACETAMINOPHEN/HYDROcodone 325 MG/10 MG TAB PO PRN ×6 (00:53→20:13)
[2017-11-23] MEDS: ceFAZolin 2 GM PREMIX 50 ML IV SCH ×3 (00:54→15:59)
[2017-11-23] MEDS: MORPHINE SULFATE 4 MG/ML INJ IV PUSH PRN ×5 (01:44→21:28)
[2017-11-23] MEDS: diphenhydrAMINE HCL 25 MG CAP PO PRN (01:50)
[2017-11-23] MEDS: ONDANSETRON ODT 4 MG TAB SL PRN ×3 (01:50→20:32)
[2017-11-23 04:00] VITALS: BP 111/62; PULSE 61; RESP 18; TEMP 97.6; O2SAT 97
--- NOTE | 2017-11-23 06:44 | PD.ORT.PN ---
Subjective Subjective Remarks Resting comfortably status post a 1 right below-knee amputation Objective Vitals Vital Signs Date Time Temp Pulse Resp B/P (MAP) Pulse Ox O2 Delivery O2 Flow Rate FiO2 11/23/17 04:00 97.6 61 18 111/62 (78) 97 11/23/17 00:00 97.7 51 18 122/61 (81) 98 11/22/17 16:28 97.2 92 20 102/64 (77) 96 11/22/17 12:34 97.2 70 20 117/55 (75) 97 11/22/17 11:15 98.1 78 16 125/77 (93) 98 Nasal Cannula 2 11/22/17 11:00 71 16 122/78 (93) 98 Nasal Cannula 2 11/22/17 10:45 73 16 140/60 (86) 99 Nasal Cannula 2 11/22/17 10:30 76 16 137/81 (99) 99 Nasal Cannula 2 11/22/17 10:15 76 16 133/78 (96) 98 Nasal Cannula 2 11/22/17 10:00 77 16 113/58 (76) 99 Nasal Cannula 2 11/22/17 09:58 97.5 81 16 132/76 (94) 96 Nasal Cannula 2 I/O 11/22/17 11/22/17 11/22/17 11/23/17 11/23/17 11/23/17 07:00 15:00 23:00 07:00 15:00 23:00 Intake Total 700 ml Output Total 200 ml Balance 500 ml Other 700 ml Output Estimated Blood Loss 200 ml # Voids 2 2 Objective Remarks Right lower extremity: No pain with hip range of motion. Knee immobilizer in place. Clean dry dressings intact with drain in place. Minimal drainage noted in drain receptacle Assessment & Plan Assessment and Plan Right below-knee amputation POD 1 Maintain dressing and knee immobilizer. Drain care. We will plan on doing a dressing change bedside tomorrow a.m. and will require Xeroform, 4 x 4's, ABDs Smoking cessation is discussed and understands it is best chance of healing this incision is to remain tobacco and nicotine free. He states he is in agreement We will plan on possible discharge on Monday Follow-up with Dr. Martinez or PA in 2 weeks Fabricio Billings Jr. Nov 23, 2017 06:44
--- NOTE | 2017-11-23 06:47 | HHI.FF ---
Face to Face Verification Diagnosis: (1) Status post below knee amputation of right lower extremity Physical Therapy Gait training, Safety evaluation Right LE Weight Bearing: Non WB Nursing Dressing Changes: Daily dressing change, Shine wrap, 4x4s, Xeroform Additional Instructions Maintain knee immobilizer I have seen patient Je Alegria on 11/23/17. My clinical findings support the need for the requested home health care services because: Limited ability to care for self I certify that my clinical findings support that this patient is homebound because: Post-op weakness Fabricio Billings Jr. PA Nov 23, 2017 06:47
[2017-11-23 07:56] VITALS: BP 116/67; PULSE 62; RESP 18; TEMP 98.2; O2SAT 94
[2017-11-23 08:53] LABS: HEMATOCRIT 38.9 % (39.0-51.0)
[2017-11-23] MEDS: GABAPENTIN 300 MG CAP PO SCH ×3 (09:29→18:00)
[2017-11-23] MEDS: VANCOMYCIN INJ 1,000 MG in SODIUM CHLOR 0.9% 250 ML INJ 250 ML IV SCH (09:34)
[2017-11-23 11:43] VITALS: BP 119/66; PULSE 64; RESP 18; TEMP 98.5; O2SAT 93
[2017-11-23] MEDS: ONDANSETRON HCL 4 MG/2 ML VIAL IV PUSH PRN (13:46)
[2017-11-23 15:48] VITALS: BP 131/69; PULSE 75; RESP 18; TEMP 98.5; O2SAT 95
--- NOTE | 2017-11-23 15:59 | OTSOAPIP ---
TIME SESSION COMPLETED: 1400 TREATMENT TIME: 0 MINS. CHART REVIEWED. INTERDISCIPLINARY COMMUNICATION: NURSE ART REQUEST TO HOLD TREATMENT SECONDARY TO PATIENT BEING AGITATED REGARDING HIS PRESENT MEDICAL SITUATION PLAN: WILL SEE PATIENT NEXT TREATMENT DAY Therapist: SHEMAR PINA/Gonzalez Signature on file
[2017-11-23 20:00] VITALS: BP 127/69; PULSE 77; RESP 18; TEMP 98.8; O2SAT 96
[2017-11-24] VITALS: BP 130/63; PULSE 78; RESP 18; TEMP 98.5; O2SAT 92
[2017-11-24] MEDS: MORPHINE SULFATE 4 MG/ML INJ IV PUSH PRN ×3 (00:49→22:25)
[2017-11-24] MEDS: ceFAZolin 2 GM PREMIX 50 ML IV SCH ×2 (00:49→09:00)
[2017-11-24] MEDS: ONDANSETRON ODT 4 MG TAB SL PRN ×2 (00:52→06:33)
[2017-11-24 04:00] VITALS: BP 126/67; PULSE 74; RESP 18; TEMP 98.3; O2SAT 96
[2017-11-24] MEDS: ACETAMINOPHEN/HYDROcodone 325 MG/10 MG TAB PO PRN (05:15)
[2017-11-24] MEDS ORDERED: PERC10TA27 PO (06:42)
--- NOTE | 2017-11-24 06:52 | PD.ORT.PN ---
Subjective Subjective Remarks Pain controlled but at times it has been very difficult Objective Vitals Vital Signs Date Time Temp Pulse Resp B/P (MAP) Pulse Ox O2 Delivery O2 Flow Rate FiO2 11/24/17 00:00 98.5 78 18 130/63 (85) 92 11/23/17 20:00 98.8 77 18 127/69 (88) 96 11/23/17 15:48 98.5 75 18 131/69 (89) 95 11/23/17 11:43 98.5 64 18 119/66 (83) 93 11/23/17 07:56 98.2 62 18 116/67 (83) 94 I/O 11/23/17 11/23/17 11/23/17 11/24/17 11/24/17 11/24/17 07:00 15:00 23:00 07:00 15:00 23:00 Output Total 0 ml Balance 0 ml Output Drainage Total 0 ml # Voids 2 Result Diagram: 11/23/17 0829 Objective Remarks Right lower extremity: No pain with hip range of motion. Knee immobilizer in place. Dressings taken down. Incision well approximated with no signs of necrosis. Drain in place then removed. New dressings applied with Xeroform 4 x 4's ABDs Sof-Rol Shine wrap and stockinette. He is then put back into his knee immobilizer to help immobilize. Assessment & Plan Assessment and Plan Right below-knee amputation POD 2 Daily dressing changes with Xeroform, 4 x 4's, ABDs and Shine wrap. Continue knee immobilizer Smoking cessation is discussed and understands it is best chance of healing this incision is to remain tobacco and nicotine free. He states he is in agreement Medications are changed to Percocet 10, ibuprofen and gabapentin We will continue to follow pain management and plan for discharge once pain is controlled Potential discharge on Monday or Monday Due to funds dressing changes will need to be arranged prior to discharge. Supplies given for 21 days Follow-up with Dr. Martinez or [facility] in 2 weeks Fabricio Billings Jr. Nov 24, 2017 06:52
[2017-11-24] MEDS: IBUPROFEN 600 MG TAB PO SCH ×3 (07:03→22:23)
[2017-11-24 08:00] VITALS: BP 121/71; PULSE 62; RESP 16; TEMP 97.9; O2SAT 93
[2017-11-24] MEDS: oxyCODONE/ACETAMINOPHEN 10 MG/325 MG TAB PO PRN ×2 (10:01→17:26)
[2017-11-24] MEDS: GABAPENTIN 300 MG CAP PO SCH ×3 (10:01→17:24)
[2017-11-24] MEDS: VANCOMYCIN INJ 1,000 MG in SODIUM CHLOR 0.9% 250 ML INJ 250 ML IV SCH (10:03)
[2017-11-24 12:00] VITALS: BP 110/63; PULSE 62; RESP 16; TEMP 97.8; O2SAT 96
[2017-11-24] MEDS ORDERED: WALKER WHEELS/F1 MIS (16:17)
[2017-11-24 17:19] VITALS: BP 108/71; PULSE 62; RESP 18; TEMP 98.1; O2SAT 95
[2017-11-24 20:00] VITALS: BP 123/65; PULSE 77; RESP 18; TEMP 97.8; O2SAT 96
[2017-11-25] MEDS: oxyCODONE/ACETAMINOPHEN 10 MG/325 MG TAB PO PRN ×6 (00:50→21:50)
[2017-11-25 05:08] VITALS: BP 105/66; PULSE 62; RESP 14; TEMP 98.3; O2SAT 96
[2017-11-25] MEDS: ONDANSETRON ODT 4 MG TAB SL PRN ×2 (06:14→23:12)
[2017-11-25] MEDS: IBUPROFEN 600 MG TAB PO SCH ×3 (06:14→21:49)
[2017-11-25] MEDS: MORPHINE SULFATE 4 MG/ML INJ IV PUSH PRN ×5 (06:14→23:05)
[2017-11-25] MEDS: GABAPENTIN 300 MG CAP PO SCH ×3 (07:45→16:48)
[2017-11-25 08:20] VITALS: BP 113/66; PULSE 59; RESP 16; TEMP 98.2; O2SAT 94
[2017-11-25 12:00] VITALS: BP 88/52; PULSE 100; RESP 16; TEMP 98.9; O2SAT 96
--- NOTE | 2017-11-25 12:11 | PD.ORT.PN ---
Subjective Subjective Remarks No new complaints of pain. Objective Vitals Vital Signs Date Time Temp Pulse Resp B/P (MAP) Pulse Ox O2 Delivery O2 Flow Rate FiO2 11/25/17 08:20 98.2 59 16 113/66 (82) 94 11/25/17 05:08 98.3 62 14 105/66 (79) 96 11/24/17 20:00 97.8 77 18 123/65 (84) 96 11/24/17 17:19 98.1 62 18 108/71 (83) 95 I/O 11/24/17 11/24/17 11/24/17 11/25/17 11/25/17 11/25/17 07:00 15:00 23:00 07:00 15:00 23:00 Intake Total 50 ml 300 ml Balance 50 ml 300 ml Intake IV Total 50 ml 300 ml Result Diagram: 11/23/17 08 Objective Remarks Right lower extremity: Leg is elevated. Knee immobilizer in place. Dressings are intact and dry. Assessment & Plan Assessment and Plan Right below-knee amputation POD 3 Continue knee immobilizer Percocet 10, ibuprofen and gabapentin We will continue to follow pain management and plan for discharge once pain is controlled Potential discharge on Monday or Monday Due to funds dressing changes will need to be arranged prior to discharge. Supplies given for 21 days Follow-up with Dr. Martinez or PA in 2 weeks Dean Herron MD Nov 25, 2017 12:11
[2017-11-25 13:13] VITALS: BP 102/58
[2017-11-25 16:00] VITALS: BP 127/71; PULSE 72; RESP 17; TEMP 98.3; O2SAT 97
[2017-11-25 19:46] VITALS: BP 120/78; PULSE 72; RESP 18; TEMP 97.7; O2SAT 96
[2017-11-25] MEDS: DOCUSATE SODIUM 100 MG CAP PO SCH (21:50)
[2017-11-26 00:55] VITALS: BP 129/89; PULSE 76; RESP 18; TEMP 98; O2SAT 99
[2017-11-26] MEDS: oxyCODONE/ACETAMINOPHEN 10 MG/325 MG TAB PO PRN ×3 (01:12→08:15)
[2017-11-26] MEDS: MORPHINE SULFATE 4 MG/ML INJ IV PUSH PRN (03:05)
[2017-11-26] MEDS: ONDANSETRON ODT 4 MG TAB SL PRN (03:05)
[2017-11-26 04:44] VITALS: BP 131/80; PULSE 66; RESP 18; TEMP 98; O2SAT 97
[2017-11-26] MEDS: IBUPROFEN 600 MG TAB PO SCH (05:25)
[2017-11-26 08:00] VITALS: BP 120/73; PULSE 64; RESP 20; TEMP 97.7; O2SAT 96
--- NOTE | 2017-11-26 08:33 | PD.ORT.PN ---
Subjective Post Op Day #: 4 Subjective Remarks pain tolerable. ready to go home. Objective Vitals Vital Signs Date Time Temp Pulse Resp B/P (MAP) Pulse Ox O2 Delivery O2 Flow Rate FiO2 11/26/17 04:44 98.0 66 18 131/80 (97) 97 11/26/17 00:55 98.0 76 18 129/89 (102) 99 11/25/17 19:46 97.7 72 18 120/78 (92) 96 11/25/17 16:00 98.3 72 17 127/71 (89) 97 11/25/17 13:13 102/58 (73) 11/25/17 12:00 98.9 100 16 88/52 (64) 96 I/O 11/25/17 11/25/17 11/25/17 11/26/17 11/26/17 11/26/17 07:00 15:00 23:00 07:00 15:00 23:00 # Voids 2 Result Diagram: 11/23/17 0829 Objective Remarks Right lower extremity: Leg is elevated. Knee immobilizer in place. Dressings are intact and dry. Assessment & Plan Ortho Post Op Day #: 4 Problem List: Assessment and Plan Right below-knee amputation POD 4 Continue knee immobilizer Percocet 10, ibuprofen and gabapentin We will continue to follow pain management and plan for discharge once pain is controlled - cleared by ortho Potential discharge on Monday - patient would like to be d/c today Due to funds dressing changes will need to be arranged prior to discharge. Supplies given for 21 days Follow-up with Dr. Martinez or PA in 2 weeks Jose Carlos Carrero Nov 26, 2017 08:33
[2017-11-26] MEDS: DOCUSATE SODIUM 100 MG CAP PO SCH (09:11)
[2017-11-26] MEDS: GABAPENTIN 300 MG CAP PO SCH (09:11)
== END 2017-11-26 10:14 | disposition home or self-care (01) | DRG 475 ==
LOC: HSDI 05:24 → N05B 11:37
PROVIDERS: ADMIT Orthopaedic Surgery Orthopaedic Trauma; ATTEND Orthopaedic Surgery Orthopaedic Trauma
PROC: 0Y6H0Z1 Detachment at Right Lower Leg, High, Open Approach (ICD-10-PCS; principal; 2017-11-22 08:12)
DX: T84.196A Other mechanical complication of internal fixation device of bone of right lower leg, initial encounter (principal); S82.301K Unspecified fracture of lower end of right tibia, subsequent encounter for closed fracture with nonunion; F17.200 Nicotine dependence, unspecified, uncomplicated; Z91.19 Patient's noncompliance with other medical treatment and regimen
CPT/HCPCS: 76937; 85014; 85018; 88307; 88311; 94150; J0690; J1170; J1580; J1885; J2250; J2270; J2405; J2710; J3010; J3370; J7050; J7120